=== PATIENT | female | born 1995 | race Caucasian/White ===

== ENCOUNTER 2017-05-09 11:06 | Emergency (ER) | payer SELFPAY ==
[~2017-05-09] VITALS: Ht 157.5 cm; Wt 59.0 kg
[2017-05-09] MEDS ORDERED: SULF-222 (11:50)
[2017-05-09] MEDS ORDERED: KETOROLAC 60 MG/2 ML VIAL IM STA (12:42)
[2017-05-09] MEDS ORDERED: fentaNYL INJECTION 100 MCG/2 ML AMP IM STA (12:42)
[2017-05-09] MEDS ORDERED: BUPIVACAINE 0.5% 30 ML (SENSORCAINE) VIAL INJ ONE (12:45)
[2017-05-09] MEDS ORDERED: LIDOCAINE/EPI 2% 1:100,00 (XYLOCAINE) 20 ML VIAL INJ ONE (12:45)
--- NOTE | 2017-05-09 12:53 | ED General ---
General Chief Complaint: -Female Stated Complaint: NEEDS CYST DRAINED Nursing Triage Note: PT PRESENTS TO ER WITH COMPLAINT OF BARTHOLIN CYST. STATES THAT HER DR IS NOT IN OFFICE AND IS NOT ABLE TO TREAT HER. STATES SHE WAS AT THE [facility] ER 05/06/17 WHERE THEY GAVE HER BACTRIM, BUT DID NOT DRAIN THE CYST. PT STATES CYST IS THE SIZE OF A FIST AND THAT SHE NEEDS IT DRAINED. STATES THIS IS HER 4TH ONE. Nursing Sepsis Screen: No Definite Risk Source of Information: Patient, Family Exam Limitations: No Limitations History of Present Illness Time Seen by Provider: 12:48 Initial Comments 22-year-old female patient presents to the emergency department with complaints of a Bartholin's abscess. Patient states she was seen at [facility] on 06 May and today and was given Bactrim DS. Reports they told her they could not perform the incision and drainage. Patient reports this is the fourth of breath on abscess that she has had. Denies fevers. Timing/Duration: 1 Week Modifying Factors: worse with Other (worse with palpation and movement) Allergies and Home Medications Allergies Coded Allergies: acetaminophen (Verified Allergy, Unknown, 05/09/17) amoxicillin (Verified Allergy, Unknown, 05/09/17) oxycodone (Verified Allergy, Unknown, 05/09/17) Home Medications Tramadol HCl 50 Mg Tablet, 50 MG PO Q6H PRN for PAIN-MODERATE TO SEVERE, #14 Ref 0 Prescribed by: REINALDO CONRAD on 05/09/17 1403 Trimethoprim/Sulfamethoxazole 1 Ea Tablet, (Reported) Constitutional: No chills, No fever, No malaise Respiratory: no symptoms reported Cardiovascular: no symptoms reported Gastrointestinal: No abdominal pain, No constipation, No diarrhea, No nausea, No vomiting Genitourinary: see HPI, No decreased output, No dysuria, No frequency, No hematuria, pain : No Musculoskeletal: no symptoms reported Skin: see HPI Psychiatric/Neurological: No Symptoms Reported All Other Systems Reviewed Negative Unless Noted: Yes (Negative excepted noted.) Past Btellbw-Oksvgx-Idstwm Hx Patient Social History Alcohol Use: Denies Use Recreational Drug Use: Yes Drug of Choice: MARIJUANA Smoking Status: Never a Smoker Recent Foreign Travel: No Contact w/Someone Who Travel: No Recent Infectious Disease Expo: No Recent Hopitalizations: No Physical Abuse: No Sexual Abuse: No Seasonal Allergies Seasonal Allergies: No Surgeries History of Surgeries: Yes (EAR CYST REMOVAL) Surgeries: Gallbladder Respiratory History of Respiratory Disorde: No Cardiovascular History of Cardiac Disorders: No Neurological History of Neurological Disord: No Genitourinary History of Genitourinary Disor: No Gastrointestinal History of Gastrointestinal Di: No Musculoskeletal History of Musculoskeletal Dis: No Endocrine History of Endocrine Disorders: No HEENT History of HEENT Disorders: No Cancer History of Cancer: No Psychosocial History of Psychiatric Problem: No Suicide Risk Score: 0 Blood Transfusions History of Blood Disorders: No Reviewed Nursing Assessment Reviewed/Agree w Nursing PMH: Yes Family Medical History Significant Family History: No Pertinent Family Hx Physical Exam Vital Signs Vital Sign - Last 12Hours 05/09/17 11:42 Temp 98.0 Pulse 90 Resp 20 B/P (MAP) 123/93 (103) Pulse Ox 97 O2 Delivery Room Air Capillary Refill : Less Than 3 Seconds General Appearance: No Apparent Distress, WD/WN Respiratory: Lungs Clear, Normal Breath Sounds, No Accessory Muscle Use, No Respiratory Distress Cardiovascular: Regular Rate, Rhythm, No Murmur Genital/Rectal: Other (erythema, swelling, tenderness left labia consistent with a bartholin abscess left labia) Neurologic/Psychiatric: Alert, Oriented x3, Normal Mood/Affect Skin: Normal Color, Warm/Dry, Other (erythema, swelling, tenderness left labia consistent with a bottle and abscess.) I&D : Site: left labia Blade Size: 11 I & D Procedure: betadine prep, sterile drapes applied, sterile dressing applied Packing/Drain: 1/4 [place] Drain (drain secured with a 0 prolene) Progress 5 ml of a 1:1 mixture of 2% lidocaine with epi and 0.5% marcaine infused into the dermis. Approximately 30 mL of purulent drainage noted. Blood loss minimal. Patient tolerated the procedure well. Progress/Results/Core Measures Suspected Sepsis Recent Fever Within 48 Hours: No Infection Criteria Present: None New/Unexplained Altered Menta: No Sepsis Screen: No Definite Risk Sepsis Diagnosis: SIRS Temperature:98.0 Pulse: 90 Respiratory Rate: 20 Blood Pressure 123 /93 Mean: 103 Results/Orders My Orders Orders - REINALDO CONRAD Bupivacaine 0.5% Injection (Sensorcaine (05/09/17 12:45) Lidocaine/Epi 2% 1:100,000 (Xylocaine/Ep (05/09/17 12:45) Fentanyl Injection (Sublimaze Injection (05/09/17 12:42) Ketorolac Injection (Toradol Injection) (05/09/17 12:42) Wound Culture (05/09/17 12:42) Medications Given in ED Current Medications Medications Dose Ordered Sig/Vicky Route Start Time Stop Time Status Last Admin Dose Admin Bupivacaine HCl 30 ml ONCE ONCE INJ 05/09/17 12:45 05/09/17 12:47 DC 05/09/17 13:18 30 ML Lidocaine/ Epinephrine 20 ml ONCE ONCE INJ 05/09/17 12:45 05/09/17 12:47 DC 05/09/17 13:18 20 ML Vital Signs/I&O Vital Sign - Last 12Hours 05/09/17 11:42 Temp 98.0 Pulse 90 Resp 20 B/P (MAP) 123/93 (103) Pulse Ox 97 O2 Delivery Room Air Capillary Refill : Less Than 3 Seconds Blood Pressure Mean: 103 Departure Communication (Admissions) Progress Notes Patient seen, evaluated, and incision with drainage performed. Plan for discharge to home. Continue Bactrim DS. Patient given a prescription of tramadol for pain. Impression Impression: Primary Impression: Bartholin's gland abscess Disposition: HOME, SELF-CARE Condition: Improved Departure-Patient Inst. Decision time for Depature: 13:13 Referrals: NO,LOCAL PHYSICIAN (PCP) Primary Care Physician JESSICA GREEN DO Patient Instructions: Abscess Incision and Drainage (DC), Bartholin's Gland Cyst Add. Discharge Instructions: All discharge instructions reviewed with patient and/or family. Voiced understanding. Medications as instructed. Ibuprofen 800 mg by mouth every 8 hours as needed for pain. Ice pack or heating pads as needed for pain. Shower with antibacterial soap. Follow-up with Dr. Jessica Green or your primary care provider as an outpatient within the next 5-7 days for recheck and drain removal. Call today for appointment time. Return to the emergency department for worsened pain, fever, swelling, or any other concerns. Scripts Tramadol HCl (Tramadol HCl) 50 Mg Tablet 50 MG PO Q6H Y for PAIN-MODERATE TO SEVERE, #14 TAB 0 Refills Prov: REINALDO CONRAD 05/09/17 Work/School Note: Work Release Form Date Seen in the Emergency Department: May 09, 2017 Return to Work: May 10, 2017 REINALDO CONRAD May 09, 2017 12:52
[2017-05-09] MEDS ORDERED: TRAM50TA2 PO (14:03)
[2017-05-09 14:08] VITALS: BP 120/85
== END 2017-05-09 14:07 | disposition home or self-care (01) ==
LOC: EDUNIT# 11:06 → ER 11:09
DX: N75.1 Abscess of Bartholin's gland (principal); F12.10 Cannabis abuse, uncomplicated
CPT/HCPCS: 87070; 87205; 99284

== ENCOUNTER 2018-06-04 12:51 | Outpatient (CLI) | payer MEDICAID ==
[~2018-06-04] VITALS: Ht 157.5 cm; Wt 89.0 kg
--- NOTE | 2018-06-04 12:37 | NUR ---
JONAS CHRISTIAN presented to unit from Home, accompanied by Mom, with c/o VAGINAL BLEEDING. JONAS CHRISTIAN weighed, gowned, voided, and to bed. EFHM and TOCO applied, VS taken. JONAS CHRISTIAN oriented to bed controls, call light, TV, heat, and A/C controls.
[2018-06-04 12:47] VITALS: BP 128/80
[~2018-06-04 12:51] MED LIST: SULF-222; TRAM50TA2 PO
--- NOTE | 2018-06-04 13:11 | NUR ---
Dr. Berrios notified of patient's arrival, complaints, and exam. New orders received.
[2018-06-04] MEDS ORDERED: PREN-54 PO (13:18)
[2018-06-04] MEDS ORDERED: ONDA4TAB11 PO (13:18)
--- NOTE | 2018-06-04 13:25 | NUR ---
Discharge instructions and medications reviewed with patient both written and verbally. Patient verbalizes understanding and questions answered.
--- NOTE | 2018-06-04 13:26 | NUR ---
Patient discharged from this unit accompanied by her Mother. No signs or symptoms of distress noted.
== END 2018-06-04 13:26 | disposition home or self-care (01) ==
LOC: LDRP 12:51 → WSo 12:51
PROVIDERS: ATTEND Obstetrics & Gynecology
DX: O46.93 Antepartum hemorrhage, unspecified, third trimester (principal); Z3A.39 39 weeks gestation of pregnancy
CPT/HCPCS: 99212

== ENCOUNTER 2018-06-08 03:38 | Inpatient (IN) | payer BC, MEDICAID ==
[2018-06-08] VITALS (39 sets, daily range): BP systolic 98–173; BP diastolic 55–109
[~2018-06-08] VITALS: Ht 157.5 cm; Wt 87.8 kg
[~2018-06-08 03:38] MED LIST changes: +ONDA4TAB11 PO; +PREN-54 PO
--- NOTE | 2018-06-08 05:00 | NUR ---
JONAS CHRISTIAN presented to unit via ambulatory from ED, accompanied by family, with c/o 39WKS 4DAYS @ DATE OF INDUCTION. JONAS CHRISTIAN weighed, gowned, voided, and to bed. EFHM and TOCO applied, VS taken. JONAS CHRISTIAN oriented to bed controls, call light, TV, heat, and A/C controls.
[2018-06-08] MEDS ORDERED: MINERAL OIL CONCENTRATE 99.9% 15 ML UDC TOP PRN (05:15)
[2018-06-08] MEDS ORDERED: OXYTOCIN/NORMAL SALINE 500 ML IV ONE (05:16)
[2018-06-08] MEDS ORDERED: D5 LR IV SOLUTION 1,000 ML IV ONE (05:16)
[2018-06-08] MEDS: D5 LR IV SOLUTION 1,000 ML IV SCH ×2 (05:40→13:10)
[2018-06-08] MEDS: OXYTOCIN/NORMAL SALINE 500 ML IV SCH ×2 (05:45→16:04)
[2018-06-08] MEDS ORDERED: CATHETER FLUSH 10 ML SYR IV SCH ×2 (06:00→22:00)
[2018-06-08 06:44] LABS: BASOPHILS % (AUTO) 0 % (0-10); EOSINOPHILS # (AUTO) 0.1 10^3/uL (0.0-0.3); EOSINOPHILS % (AUTO) 1 % (0-10); HEMATOCRIT 31 % (35-52); HEMOGLOBIN 9.8 G/DL (11.5-16.0); LYMPHOCYTES # (AUTO) 1.5 X 10^3 (1.0-4.0); LYMPHOCYTES % (AUTO) 18 % (12-44); MEAN CORPUSCULAR HEMOGLOBIN 25 PG (25-34); MEAN CORPUSCULAR HGB CONC 31 G/DL (32-36); MEAN CORPUSCULAR VOLUME 80 FL (80-99); MEAN PLATELET VOLUME 9.4 FL (7.4-10.4); MONOCYTES # (AUTO) 0.8 X 10^3 (0.0-1.0); MONOCYTES % (AUTO) 10 % (0-12); NEUTROPHILS % (AUTO) 71 % (42-75); PLATELET COUNT 283 10^3/uL (130-400); RED CELL DISTRIBUTION WIDTH 14.2 % (10.0-14.5); WHITE BLOOD COUNT 8.4 10^3/uL (4.3-11.0)
[2018-06-08 07:01] LABS: AMPHETAMINE SCREEN, URINE NEGATIVE (NEGATIVE); BENZODIAZEPINES SCREEN URINE NEGATIVE (NEGATIVE); COCAINE SCREEN URINE NEGATIVE (NEGATIVE)
[2018-06-08 07:02] LABS: BARBITURATE SCREEN URINE NEGATIVE (NEGATIVE); CANNABINOID SCREEN, URINE NEGATIVE (NEGATIVE); METHADONE STAT NEGATIVE (NEGATIVE); METHAMPHETAMINE SCREEN URINE S NEGATIVE (NEGATIVE); OPIATE SCREEN URINE NEGATIVE (NEGATIVE); OXYCODONE STAT NEGATIVE (NEGATIVE); PROPOXYPHENE STAT NEGATIVE (NEGATIVE); TRICYCLIC ANTIDEPRESSANTS SCRE NEGATIVE (NEGATIVE)
--- NOTE | 2018-06-08 07:13 | History & Physical-OB/GYN ---
History of Present Illness History of Present Illness Reason for visit/HPI Pitocin Induction of Labor Date of Admission Jun 08, 2018 at 04:50 Date Seen by a Provider: Jun 08, 2018 Time Seen by a Provider: 07:00 I consulted on this patient on 06/08/18 07:08 Attending Physician Cam Berrios DO Admitting Physician No,Local Physician Consult Allergies and Home Medications Allergies Coded Allergies: acetaminophen (Verified Allergy, Mild, NAUSEA, 06/08/18) Penicillins (Verified Allergy, Unknown, RASH, 06/08/18) amoxicillin (Verified Allergy, Unknown, 05/09/17) oxycodone (Verified Allergy, Unknown, NAUSEA, 06/08/18) Home Medications Pnv No.118/Iron Fumarate/FA 1 Each Tab.chew, 2 EACH PO DAILY, (Reported) Patient Home Medication List Home Medication List Reviewed: Yes Past Wgguets-Rdrzdu-Fbdaou Hx Patient Social History Marrital Status: single Number of Children: 0 Number of living children: 0 Employed/Student: unemployed Alcohol Use: Denies Use Recreational Drug Use: Yes Drug of Choice: MARIJUANA, Meth Physical Abuse Screen: No Sexual Abuse: No Recent Foreign Travel: No Contact w/other who traveled: No Recent Hopitalizations: No Recent Infectious Disease Expo: No Seasonal Allergies Seasonal Allergies: No Surgeries Yes (EAR CYST REMOVAL) Gallbladder Respiratory Yes Currently Using CPAP: No Currently Using BIPAP: No Cardiovascular No Neurological No Reproductive System Expected Date of Delivery: Jun 11, 2018 Genitourinary No Gastrointestinal No Musculoskeletal Yes Scoliosis Endocrine History of Endocrine Disorders: No HEENT History of HEENT Disorders: No Cancer No Psychosocial History of Psychiatric Problem: No Integumentary History of Skin or Integumenta: No Blood Transfusions History of Blood Disorders: No Family Medical History Significant Family History: No Pertinent Family Hx Review of Systems Constitutional: no symptoms reported EENTM: no symptoms reported Respiratory: no symptoms reported Cardiovascular: no symptoms reported : Yes Expected Date of Delivery: Jun 11, 2018 Control/STD Prophylaxis: None Musculoskeletal: back pain Skin: no symptoms reported Psychiatric/Neurological: No Symptoms Reported Physical Exam Physical Exam Vital Signs Capillary Refill : Labs Laboratory Tests 06/08/18 05:05: Urine Opiates Screen NEGATIVE, Urine Oxycodone Screen NEGATIVE, Urine Methadone Screen NEGATIVE, Urine Propoxyphene Screen NEGATIVE, Urine Barbiturates Screen NEGATIVE, Ur Tricyclic Antidepressants Screen NEGATIVE, Urine Phencyclidine Screen NEGATIVE, Urine Amphetamines Screen NEGATIVE, Urine Methamphetamines Screen NEGATIVE, Urine Benzodiazepines Screen NEGATIVE, Urine Cocaine Screen NEGATIVE, Urine Cannabinoids Screen NEGATIVE 06/08/18 06:35: White Blood Count 8.4, Red Blood Count 3.94L, Hemoglobin 9.8L, Hematocrit 31L, Mean Corpuscular Volume 80, Mean Corpuscular Hemoglobin 25, Mean Corpuscular Hemoglobin Concent 31L, Red Cell Distribution Width 14.2, Platelet Count 283, Mean Platelet Volume 9.4, Neutrophils (%) (Auto) 71, Lymphocytes (%) (Auto) 18, Monocytes (%) (Auto) 10, Eosinophils (%) (Auto) 1, Basophils (%) (Auto) 0, Neutrophils # (Auto) 6.0, Lymphocytes # (Auto) 1.5, Monocytes # (Auto) 0.8, Eosinophils # (Auto) 0.1, Basophils # (Auto) 0.0 General Appearance: No Apparent Distress, WD/WN Respiratory: Chest Non Tender, Lungs Clear Cardiovascular: Regular Rate, Rhythm, No Murmur Abdominal: normal bowel sounds, non tender, soft, distended (Gravid) Gynecology/General: No urethral discharge, No pelvic organ prolapse Labia: WNL Vagina: WNL Cervix: WNL, Other (Cervix 1 cm/30%/-3 Vertex/Intact) Cervix OS: open (Cervix 1 cm/30%/-3 Vertex/Intact) Uterus: Enlarged (37 cm (uterine fundus)) Pelvic Exam: normal external exam Extremity: Normal Range of Motion, Non Tender Assessment/Plan Assessment and Plan Assessment: IUP at 39 4/7 weeks 2. Primigravida Admission Diagnosis IUP at 39 4/7 weeks 2. Primigravida Admission Status: Inpatient Order (span 2 midnights) Reason for Inpatient Admission: with expectant delivery Diagnosis/Problems Diagnosis/Problems (1) 39 weeks gestation of (2) Elective induction of labor planned Clinical Quality Measures DVT/VTE Risk/Contraindication: Risk Factor Score Per Nursin RFS Level Per Nursing on Admit: 1=Low/No VTE PPX CAM BERRIOS DO Jun 08, 2018 07:13
[2018-06-08] MEDS ORDERED: BUTORPHANOL INJ 2 MG/ML (STADOL) VIAL IV PRN (07:15)
[2018-06-08] MEDS ORDERED: ONDANSETRON 4 MG/2 ML (SDV) Z0FRAN IVP PRN (07:15)
--- NOTE | 2018-06-08 08:18 | Labor Progress Note ---
Labor Progress Note Labor Progress Note Date Seen by Provider: Jun 08, 2018 Time Seen by Provider: 08:00 Subjective: Complains of regular contractions--getting stronger Objective: (Can we insert 24 hour vitals here?) Cervical exam: Cervix 1 cm/30%/-3 Vertex/AROM Consistency: Medium Position: Posterior Presentation: Vertex heart tones: 150 beats per minute, good variability, yes reactive Tocometer: ctx every 2 minutes Assessment/Plan: Reinaldo Rose is a (23 /Para / ,Gestational Age (wks)39 . CEFM/TOCO Continue pitocin/ Anesthesia: No Anticipate vaginal delivery. Vitals - Labs Vital Signs - I&O Vital Signs Date Time Temp Pulse Resp B/P (MAP) Pulse Ox O2 Delivery O2 Flow Rate FiO2 06/08/18 06:50 105 16 121/77 (92) Room Air 06/08/18 06:20 88 16 109/58 (75) Room Air 06/08/18 06:05 84 16 104/63 (77) Room Air 06/08/18 05:45 92 16 116/74 (88) Room Air 06/08/18 05:26 97.7 96 16 116/69 (85) Room Air Labs Laboratory Tests 06/08/18 05:05: Urine Opiates Screen NEGATIVE, Urine Oxycodone Screen NEGATIVE, Urine Methadone Screen NEGATIVE, Urine Propoxyphene Screen NEGATIVE, Urine Barbiturates Screen NEGATIVE, Ur Tricyclic Antidepressants Screen NEGATIVE, Urine Phencyclidine Screen NEGATIVE, Urine Amphetamines Screen NEGATIVE, Urine Methamphetamines Screen NEGATIVE, Urine Benzodiazepines Screen NEGATIVE, Urine Cocaine Screen NEGATIVE, Urine Cannabinoids Screen NEGATIVE 06/08/18 06:35: White Blood Count 8.4, Red Blood Count 3.94L, Hemoglobin 9.8L, Hematocrit 31L, Mean Corpuscular Volume 80, Mean Corpuscular Hemoglobin 25, Mean Corpuscular Hemoglobin Concent 31L, Red Cell Distribution Width 14.2, Platelet Count 283, Mean Platelet Volume 9.4, Neutrophils (%) (Auto) 71, Lymphocytes (%) (Auto) 18, Monocytes (%) (Auto) 10, Eosinophils (%) (Auto) 1, Basophils (%) (Auto) 0, Neutrophils # (Auto) 6.0, Lymphocytes # (Auto) 1.5, Monocytes # (Auto) 0.8, Eosinophils # (Auto) 0.1, Basophils # (Auto) 0.0 MARY GLASER DO Jun 08, 2018 08:18
[2018-06-08] MEDS ORDERED: OXYC1TAB87 PO (08:27)
[2018-06-08] MEDS ORDERED: LIDOCAINE 1% INJ 20 ML 20 ML VIAL ONE ×2 (15:13→15:36)
--- NOTE | 2018-06-08 16:01 | OB Labor & Delivery Record ---
Vag Delivery Note Vag Delivery Note Date of Delivery: 06/08/18 Preoperative Diagnosis: Reinaldo Rose is a (23 /Para / ,Gestational Age ( wks)39 4/7 weeks Postoperative Diagnosis: Same Surgeon: MARY GLASER Food Service Utility Worker: None Anesthesia: Local Delivery Type: Normal Spontaneous Vaginal Delivery with Midline Episiotomy and Standard Repair Findings: Male , vertex, nuchal cord x 1 that was manually reduced Viable Male , apgars 7, 8, weight 7 lbs 12 oz Lacerations: Intact placenta with 3 vessel cord. No nuchal cord, body cord or shoulder dystocia Cytotec 800 mcg placed for hemorrhage prophylaxis Estimated Blood Loss: 300 ml Complications: None Condition: Stable Description of Procedure: The patient is a [id number] presented for induction of labor. She was admitted and informed consent was obtained. Her labor course was unremarkable. She progressed to complete dilatation and began to push. She was then set up for delivery. The 's head was delivered atraumatically in the ELLIS position. Nuchal cord x 1 was manually reduced. The shoulders and remainder of the infant's body were then delivered without difficulty. Upon delivery, the head was held below the level of the perineum and the mouth and nares were bulb suctioned. The cord was doubly clamped and cut and the was handed off to the pediatric staff. An intact placenta with 3-vessel cord delivered via Erin and there was found to be minimal bleeding.~ Vigorous fundal massage was performed and the fundus was found to be firm. IV oxytocin was given. Examination of the vagina and perineum revealed a midline epsiotomy that was repaired in the usual fashion with 2-0 Vicryl and 3- 0 vicryl sutures. Following the repair, sponge, instrument and needle counts were correct. Mom and baby were both in stable condition in the labor suite. Vitals - Labs Vital Signs - I&O Vital Signs Date Time Temp Pulse Resp B/P (MAP) Pulse Ox O2 Delivery O2 Flow Rate FiO2 06/08/18 11:05 98.2 90 18 123/82 (96) Room Air 06/08/18 10:50 100 18 120/78 (92) Room Air 06/08/18 10:35 85 16 125/75 (92) Room Air 06/08/18 10:20 83 16 123/78 (93) Room Air 06/08/18 10:05 86 16 112/75 (87) Room Air 06/08/18 09:50 99 16 114/78 (90) Room Air 06/08/18 09:35 88 16 115/75 (88) Room Air 06/08/18 09:20 98.1 93 18 115/76 (89) Room Air 06/08/18 09:05 81 16 101/57 (72) Room Air 06/08/18 08:50 98.0 92 18 110/71 (84) Room Air 06/08/18 08:35 95 18 115/75 (88) Room Air 06/08/18 08:20 100 18 98/55 (69) Room Air 06/08/18 08:15 98.2 06/08/18 08:05 108 18 114/66 (82) Room Air 06/08/18 07:45 86 18 117/70 (86) Room Air 06/08/18 07:35 95 18 122/72 (89) Room Air 06/08/18 07:20 98.1 91 16 127/58 (81) Room Air 06/08/18 06:50 105 16 121/77 (92) Room Air 06/08/18 06:20 88 16 109/58 (75) Room Air 06/08/18 06:05 84 16 104/63 (77) Room Air 06/08/18 05:45 92 16 116/74 (88) Room Air 06/08/18 05:26 97.7 96 16 116/69 (85) Room Air Labs Laboratory Tests 06/08/18 05:05: Urine Opiates Screen NEGATIVE, Urine Oxycodone Screen NEGATIVE, Urine Methadone Screen NEGATIVE, Urine Propoxyphene Screen NEGATIVE, Urine Barbiturates Screen NEGATIVE, Ur Tricyclic Antidepressants Screen NEGATIVE, Urine Phencyclidine Screen NEGATIVE, Urine Amphetamines Screen NEGATIVE, Urine Methamphetamines Screen NEGATIVE, Urine Benzodiazepines Screen NEGATIVE, Urine Cocaine Screen NEGATIVE, Urine Cannabinoids Screen NEGATIVE 06/08/18 06:35: White Blood Count 8.4, Red Blood Count 3.94L, Hemoglobin 9.8L, Hematocrit 31L, Mean Corpuscular Volume 80, Mean Corpuscular Hemoglobin 25, Mean Corpuscular Hemoglobin Concent 31L, Red Cell Distribution Width 14.2, Platelet Count 283, Mean Platelet Volume 9.4, Neutrophils (%) (Auto) 71, Lymphocytes (%) (Auto) 18, Monocytes (%) (Auto) 10, Eosinophils (%) (Auto) 1, Basophils (%) (Auto) 0, Neutrophils # (Auto) 6.0, Lymphocytes # (Auto) 1.5, Monocytes # (Auto) 0.8, Eosinophils # (Auto) 0.1, Basophils # (Auto) 0.0 MARY GLASER DO Jun 08, 2018 16:01
[2018-06-08] MEDS ORDERED: OXYTOCIN/NORMAL SALINE 500 ML IV SCH (16:20)
[2018-06-08] MEDS ORDERED: TETANUS,DIPTH,PERTUSS P/F (BOOSTRIX) 0.5 ML VIAL IM ONE (16:30)
[2018-06-08] MEDS ORDERED: MEASLES,MUMPS,RUBELLA 1 EA INJ SQ ONE (16:30)
[2018-06-08] MEDS ORDERED: oxyCODONE/APAP 5/325MG (PERCOCET 5) TABLET PO PRN (16:30)
[2018-06-08] MEDS ORDERED: WITCH HAZEL(TUCKS) 40 EA JAR TOP PRN (16:30)
[2018-06-08] MEDS ORDERED: BENZOCAINE/MENTHOL (DERMOPLAST) 56 ML CAN TP PRN (16:30)
[2018-06-08] MEDS ORDERED: IBUPROFEN 800 MG (MOTRIN) TAB PO ONE ×2 (17:19→22:55)
[2018-06-08] MEDS: IBUPROFEN 800 MG (MOTRIN) TAB PO SCH ×2 (17:23→23:16)
--- NOTE | 2018-06-08 17:50 | NUR ---
Pt. assisted to bathroom to attempt void, unsuccessful. Pt. assisted back to bed for remainder of recover.
--- NOTE | 2018-06-08 18:00 | NUR ---
Refer to labor flowsheet for detailed assessment of labor progression and interventions, delivery details, and recovery.
[2018-06-08] MEDS ORDERED: LIDOCAINE 1% INJ 20 ML 20 ML VIAL INJ ONE ×2 (18:30→18:45)
--- NOTE | 2018-06-08 18:46 | NUR ---
FFU/0, LT RUBRA VAG FLOW NOTED, NO CLOTS. PT TRANSFERRED FROM -319 TO -309 VIA AMBULATORY IN STABLE CONDITION ACC BY S/O, FAMILY, THIS RN AND . PT TO THE BATHROOM.
--- NOTE | 2018-06-08 20:13 | NUR ---
pt resting in bed. s/o at bedside. assessment completed. pt denies any needs at this time. will continue to monitor.
[2018-06-08] MEDS: DOCUSATE SODIUM 100 MG (COLACE) CAP PO SCH (20:15)
[2018-06-09 02:30] VITALS: BP 98/62
[2018-06-09] MEDS ORDERED: IBUPROFEN 800 MG (MOTRIN) TAB PO ONE ×2 (04:44→10:21)
[2018-06-09] MEDS: IBUPROFEN 800 MG (MOTRIN) TAB PO SCH ×3 (04:59→17:30)
[2018-06-09 06:03] VITALS: BP 97/62
[2018-06-09 06:22] LABS: BASOPHILS % (AUTO) 0 % (0-10); EOSINOPHILS # (AUTO) 0.1 10^3/uL (0.0-0.3); EOSINOPHILS % (AUTO) 0 % (0-10); HEMATOCRIT 26 % (35-52); HEMOGLOBIN 8.1 G/DL (11.5-16.0); LYMPHOCYTES # (AUTO) 1.6 X 10^3 (1.0-4.0); LYMPHOCYTES % (AUTO) 12 % (12-44); MEAN CORPUSCULAR HEMOGLOBIN 25 PG (25-34); MEAN CORPUSCULAR HGB CONC 31 G/DL (32-36); MEAN CORPUSCULAR VOLUME 80 FL (80-99); MONOCYTES % (AUTO) 7 % (0-12); NEUTROPHILS % (AUTO) 80 % (42-75); PLATELET COUNT 258 10^3/uL (130-400); RED CELL DISTRIBUTION WIDTH 14.2 % (10.0-14.5); WHITE BLOOD COUNT 13.7 10^3/uL (4.3-11.0)
[2018-06-09] MEDS ORDERED: PRENATAL VITAMIN 1 EA TAB PO SCH (07:00)
--- NOTE | 2018-06-09 09:49 | NUR ---
Dr. Berrios to room to see pt.
[2018-06-09] MEDS ORDERED: DOCU100C37 PO (10:05)
[2018-06-09] MEDS ORDERED: OXYC1TAB87 PO (10:05)
[2018-06-09] MEDS ORDERED: IBUP-1780 PO (10:05)
--- NOTE | 2018-06-09 10:13 | Discharge Inst-Women's Service ---
Discharge Inst-Women's Serv Depart Medication/Instructions New, Converted or Re-Newed RX: RX Given to Pt/Family Instructions Pelvic rest x 6 weeks No heavy lifting, less than 20 pounds No strenuous activity Tub soaks Final Diagnosis Intrauterine at 39 4/7 Normal Spontaneous Vaginal Delivery with Midline Episiotomy Consults/Follow Up Additional Follow Up: No Activity Activity: Activity as Tolerated Driving Instructions: No Driving for 1 Week NO SMOKING: NO SMOKING Nothing Inside Vagina: No Douching, No [place], No Tampons Diet Discharge Diet: No Restrictions Symptoms to Report to DrWest: Bleeding Excessive, Pain Increased, Fever Over 101 Degrees F, Vaginal Bleeding Increase, Vaginal Discharge Foul Skin/Wound Care Infection Signs and Symptoms: Foul Odor of Wound, Increased Drainage, Temperature Above 101 F Operative Area Clean and Dry: Keep Incision Clean/Dry Bathing Instructions: MARY Marc DO Jun 09, 2018 10:13
[2018-06-09 10:27] VITALS: BP 115/76
[2018-06-09] MEDS: DOCUSATE SODIUM 100 MG (COLACE) CAP PO SCH (10:29)
[2018-06-09 14:30] VITALS: BP 125/85
--- NOTE | 2018-06-09 14:30 | NUR ---
Discussed options of boardering vs staying another night as a pt. pt opting to boarder. prescriptions given to pt and explained at this time. will explain d/c instructions following next motrin
--- NOTE | 2018-06-09 17:35 | NUR ---
Discharge instructions explained to pt with copy provided to pt. Questions answered to pt satisfaction. Pt verbalizes understanding of teaching and signs to verify, denies further questions or concerns at this time. Pt to stay in room 309 as boarder parent. Room in info provided. No questions voice.
== END 2018-06-09 17:35 | disposition home or self-care (01) | DRG 807 ==
LOC: LDRP 04:50
PROVIDERS: ADMIT Obstetrics & Gynecology; ATTEND Obstetrics & Gynecology
PROC: 10E0XZZ Delivery of Products of Conception, External Approach (ICD-10-PCS; principal; 2018-06-08)
PROC: 0W8NXZZ Division of Female Perineum, External Approach (ICD-10-PCS; 2018-06-08)
PROC: 3E033VJ Introduction of Other Hormone into Peripheral Vein, Percutaneous Approach (ICD-10-PCS; 2018-06-08)
DX: O69.81X0 Labor and delivery complicated by cord around neck, without compression, not applicable or unspecified (principal); Z3A.39 39 weeks gestation of pregnancy; Z37.0 Single live birth; Z88.0 Allergy status to penicillin; Z88.1 Allergy status to other antibiotic agents; Z88.5 Allergy status to narcotic agent; Z88.6 Allergy status to analgesic agent
CPT/HCPCS: 36415; 80306; 85025; 86850; 86900; 86901

== ENCOUNTER 2018-08-21 17:15 | Emergency (ER) | payer BC, MEDICAID ==
[~2018-08-21] VITALS: Ht 157.5 cm; Wt 82.6 kg
[~2018-08-21 17:15] MED LIST changes: +DOCU100C37 PO; +IBUP-1780 PO; +OXYC1TAB87 PO
--- NOTE | 2018-08-21 17:35 | ED Psychosocial ---
General Stated Complaint: POSSIBLE PPD Source: patient Exam Limitations: no limitations (NASRIN ROMERO) History of Present Illness Date Seen by Provider: Aug 21, 2018 Time Seen by Provider: 17:20 Initial Comments The patient presents to ER by private conveyance with chief complaint that she has a history of low mood, low energy, low appetite and suicidal ideation. She admitting appointment with her primary care provider Lety Enciso today and was seen in the clinic and after that appointment she was instructed to come across the way to the ER for further evaluation of her suicidal ideation. She's had passive suicidal ideation in the past but usually with some counseling she's been able to handle it. She does not take any medications for this. She is a with a healthy term baby delivered by spontaneous vaginal delivery without significant issue during , delivery or the term. The boy is at a baby sitters right now. She denies having any thoughts of harming her son. She has cried multiple times throughout the day for the past few weeks. She says couple weeks however her poor appetite and now some nausea with eating anything more than a butter and crackers as well as suicidal ideation without a plan has manifested itself even worse. She thinks it is probably related to depression. Her child's date was June 08, 2018. She has a history when she was in 6-7 grade of doing some minor cutting on her arms but nothing since then. She has no history of suicide attempts and she has never spent any time in a inpatient psychiatric hospital. She has no significant medical history nor psychiatric diagnoses and is not followed by a psychiatrist , psychologist or counselor. She does not take any medication. She has a stated allergy to penicillin which causes a rash. She is not presently having any nausea or pain shortness of breath or other symptoms. She only rarely drinks alcohol 3 or 4 times a year. Her last use of marijuana was about 5 days ago and she says she occasionally partakes. She has a distant history of using meth with her last use being about a year ago just prior to becoming . She uses about 7-10 cigarettes per day. (NASRIN ROMERO) Allergies and Home Medications Allergies Coded Allergies: acetaminophen (Verified Allergy, Mild, NAUSEA, 06/08/18) Penicillins (Verified Allergy, Unknown, RASH, 06/08/18) amoxicillin (Verified Allergy, Unknown, 05/09/17) oxycodone (Verified Allergy, Unknown, NAUSEA, 06/08/18) Home Medications Docusate Sodium 100 Mg Capsule, 100 MG PO BID Prescribed by: MARY GLASER on 06/09/18 1005 Ibuprofen 800 Mg Tablet, 800 MG PO q8 PRN for BACK PAIN Prescribed by: MARY GLASER on 06/09/18 1005 Oxycodone HCl/Acetaminophen 1 Each Tablet, 1 EACH PO Q6H PRN for PAIN-MODERATE Prescribed by: MARY GLASER on 06/08/18 0827 Oxycodone HCl/Acetaminophen 1 Each Tablet, 1 TAB PO Q6H PRN for PAIN-MODERATE Prescribed by: MARY GLASER on 06/09/18 1005 Pnv No.118/Iron Fumarate/FA 1 Each Tab.chew, 2 EACH PO DAILY, (Reported) Patient Home Medication List Home Medication List Reviewed: Yes (NASRIN ROMERO) Review of Systems Constitutional: No chills, No fever, No malaise EENTM: No ear pain, No eye pain Respiratory: No cough, No short of breath Cardiovascular: No chest pain, No edema Gastrointestinal: No abdominal pain, No constipation, No diarrhea Genitourinary: No discharge, No dysuria : No Control/STD Prophylaxis: None Musculoskeletal: No back pain, No joint pain Skin: No pruritus, No rash Psychiatric/Neurological: Anxiety, Depressed; Denies Headache, Denies Numbness , Denies Paresthesia (NASRIN ROMERO) Past Lrbhrdr-Xoymix-Ykigvt Hx Patient Social History Alcohol Use: Rarely Uses Alcohol Beverage of Choice: Beer Recreational Drug Use: Yes Drug of Choice: MARIJUANA, Meth Smoking Status: Current Everyday Smoker Type Used: Cigarettes (0.5 ppd) Recent Foreign Travel: No Contact w/Someone Who Travel: No Recent Hopitalizations: No (NASRIN ROMERO) Seasonal Allergies Seasonal Allergies: No (NASRIN ROMERO) Past Medical History Surgeries: Yes (EAR CYST REMOVAL) Gallbladder Respiratory: Yes Asthma Currently Using CPAP: No Currently Using BIPAP: No Cardiac: No Neurological: No Genitourinary: No Gastrointestinal: No Musculoskeletal: Yes Scoliosis Endocrine: No HEENT: No Cancer: No Psychosocial: No Integumentary: No Blood Disorders: No (NASRIN ROMERO) Family Medical History Blood clots 19 MOTHER Scoliosis G8 BROTHER No Pertinent Family Hx (NASRIN ROMERO) Physical Exam Vital Signs - First Documented 08/21/18 17:32 Temp 98.3 Pulse 82 Resp 16 B/P (MAP) 103/84 (90) Pulse Ox 99 O2 Delivery Room Air (MARY CERDA DO) Capillary Refill : (NASRIN ROMERO) Height, Weight, BMI Height: 5'2.00" Weight: 193lbs. 8.0oz. 87.911326ft; 35.4 BMI Method:Stated General Appearance: WD/WN, no apparent distress HEENT: PERRL/EOMI, pharynx normal Neck: full range of motion, normal inspection Respiratory: lungs clear, normal breath sounds, no respiratory distress, no accessory muscle use Cardiovascular: normal peripheral pulses, regular rate, rhythm, no edema Peripheral Pulses: 2+ Dorsalis Pedis (R), 2+ Left Dors-Pedis (L) Neurologic/Psychiatric: alert, oriented x 3, depressed affect, other (endorses suicidal ideation without plan or active attempt.) Appearance/Memory: appropriate appearance, appropriate insight Behavior/Eye Contact: cooperative, good eye contact, normal speech Thoughts/Hallucinations: normal thought pattern, no apparent hallucination Skin: normal color, warm/dry (NASRIN ROMERO) Progress/Results/Core Measures Results/Orders Lab Results Laboratory Tests Test 08/21/18 17:15 08/21/18 17:38 Range/Units Urine Color YELLOW Urine Clarity SL CLOUDY Urine pH 8.0 5-9 Urine Specific [place] 1.010 L 1.016-1.022 Urine Protein NEGATIVE NEGATIVE Urine Glucose (UA) NEGATIVE NEGATIVE Urine Ketones NEGATIVE NEGATIVE Urine Nitrite NEGATIVE NEGATIVE Urine Bilirubin NEGATIVE NEGATIVE Urine Urobilinogen 0.2 NORMAL MG/DL Urine Leukocyte Esterase 3+ H NEGATIVE Urine RBC (Auto) NEGATIVE NEGATIVE Urine RBC NONE /HPF Urine WBC 10-25 H /HPF Urine Squamous Epithelial Cells 25-50 H /HPF Urine Crystals NONE /LPF Urine Bacteria FEW H /HPF Urine Casts NONE /LPF Urine Mucus NEGATIVE /LPF Urine Culture Indicated YES Urine Test NEGATIVE NEGATIVE Urine Opiates Screen NEGATIVE NEGATIVE Urine Oxycodone Screen NEGATIVE NEGATIVE Urine Methadone Screen NEGATIVE NEGATIVE Urine Propoxyphene Screen NEGATIVE NEGATIVE Urine Barbiturates Screen NEGATIVE NEGATIVE Ur Tricyclic Antidepressants Screen NEGATIVE NEGATIVE Urine Phencyclidine Screen NEGATIVE NEGATIVE Urine Amphetamines Screen NEGATIVE NEGATIVE Urine Methamphetamines Screen NEGATIVE NEGATIVE Urine Benzodiazepines Screen NEGATIVE NEGATIVE Urine Cocaine Screen NEGATIVE NEGATIVE Urine Cannabinoids Screen POSITIVE H NEGATIVE White Blood Count 6.8 4.3-11.0 10^3/uL Red Blood Count 4.83 4.35-5.85 10^6/uL Hemoglobin 12.0 11.5-16.0 G/DL Hematocrit 39 35-52 % Mean Corpuscular Volume 81 80-99 FL Mean Corpuscular Hemoglobin 25 25-34 PG Mean Corpuscular Hemoglobin Concent 31 L 32-36 G/DL Red Cell Distribution Width 16.0 H 10.0-14.5 % Platelet Count 311 130-400 10^3/uL Mean Platelet Volume 9.5 7.4-10.4 FL Neutrophils (%) (Auto) 59 42-75 % Lymphocytes (%) (Auto) 32 12-44 % Monocytes (%) (Auto) 7 0-12 % Eosinophils (%) (Auto) 1 0-10 % Basophils (%) (Auto) 1 0-10 % Neutrophils # (Auto) 4.0 1.8-7.8 X 10^3 Lymphocytes # (Auto) 2.2 1.0-4.0 X 10^3 Monocytes # (Auto) 0.5 0.0-1.0 X 10^3 Eosinophils # (Auto) 0.1 0.0-0.3 10^3/uL Basophils # (Auto) 0.0 0.0-0.1 10^3/uL Sodium Level 140 135-145 MMOL/L Potassium Level 3.7 3.6-5.0 MMOL/L Chloride Level 103 98-107 MMOL/L Carbon Dioxide Level 25 21-32 MMOL/L Anion Gap 12 5-14 MMOL/L Blood Urea Nitrogen 6 L 7-18 MG/DL Creatinine 0.64 0.60-1.30 MG/DL Estimat Glomerular Filtration Rate > 60 BUN/Creatinine Ratio 9 Glucose Level 89 70-105 MG/DL Calcium Level 9.6 8.5-10.1 MG/DL Corrected Calcium 8.5-10.1 MG/DL Total Bilirubin 0.5 0.1-1.0 MG/DL Aspartate Amino Transf (AST/SGOT) 28 5-34 U/L Alanine Aminotransferase (ALT/SGPT) 35 0-55 U/L Alkaline Phosphatase 95 40-136 U/L Total Protein 7.8 6.4-8.2 GM/DL Albumin 4.8 H 3.2-4.5 GM/DL Salicylates Level 0.4 L 5.0-20.0 MG/DL Acetaminophen Level < 10 L 10-30 UG/ML Serum Alcohol < 10 <10 MG/DL (MARY CERDA DO) Vital Signs/I&O 08/21/18 17:32 Temp 98.3 Pulse 82 Resp 16 B/P (MAP) 103/84 (90) Pulse Ox 99 O2 Delivery Room Air (MARY CERDA DO) Progress Progress Note : Time: 17:36 Progress Note We will get the [facility] screener to see the patient. Routine psychiatric labs and EKG. Labor and delivery record was reviewed and demonstrate a UDS and unremarkable spontaneous vaginal delivery of a healthy term infant. History of a Bartholin's cyst drainage 2016. History of nonspecific ear cyst from childhood. Cholesteatoma? 174: Urinalysis likely represents contamination. (NASRIN ROMERO) Progress Note : Progress Note William Cameron I took over care at 1800. Screener evaluated patient and felt patient was not a danger to herself as she has resources for help and is learning new coping mechanisms. I evaluated patient as well and am not concerned she is an immediate threat to her own life. She is to follow up with primary care provider tomorrow and was told to return to the emergency department any time with any concerns. Patient aware and agreeable to plan for discharge and verbalized understanding of the need for follow-up primary care provider tomorrow to come back with any concerns. (MARY CERDA DO) Initial ECG Impression Date: Aug 21, 2018 Initial ECG Impression Time: 17:28 Initial ECG Rate: 70 Initial ECG Rhythm: Normal Sinus Initial ECG Intervals: Normal Initial ECG Impression: Normal Initial ECG Comparisson: No Previous ECG Available Comment No dysrhythmia or ST elevation or depression. Normal sinus rhythm. (NASRIN ROMERO) Transfer of Care Time: 18:00 Care transferred to: Dr Cerda (NASRIN ROMERO) Departure Impression Primary Impression: Passive suicidal ideations Additional Impression: depression Disposition: 01 HOME, SELF-CARE Condition: Stable Departure-Patient Inst. Decision time for Depature: 19:11 (MARY CERDA DO) Referrals: NO,LOCAL PHYSICIAN (PCP/Family) Primary Care Physician Patient Instructions: Depression, Suicide Prevention NASRIN ROMERO Aug 21, 2018 17:35 MARY CERDA DO Aug 21, 2018 19:14
[2018-08-21 17:41] LABS: COLOR,URINE YELLOW
[2018-08-21 17:42] LABS: BACTERIA,URINE FEW /HPF; BILIRUBIN,URINE NEGATIVE (NEGATIVE); CLARITY,URINE SL CLOUDY; GLUCOSE, URINE (UA) NEGATIVE (NEGATIVE); KETONES,URINE NEGATIVE (NEGATIVE); LEUKOCYTE ESTERASE ,URINE 3+ (NEGATIVE); NITRITE,URINE NEGATIVE (NEGATIVE); PROTEIN,URINE NEGATIVE (NEGATIVE); SQUAMOUS EPITHELIAL CELL,UR 25-50 /HPF; UROBILINOGEN,URINE 0.2 MG/DL (NORMAL)
[2018-08-21 17:45] LABS: AMPHETAMINE SCREEN, URINE NEGATIVE (NEGATIVE); BARBITURATE SCREEN URINE NEGATIVE (NEGATIVE); BENZODIAZEPINES SCREEN URINE NEGATIVE (NEGATIVE); CANNABINOID SCREEN, URINE POSITIVE (NEGATIVE); COCAINE SCREEN URINE NEGATIVE (NEGATIVE); HCG,QUALITATIVE URINE NEGATIVE (NEGATIVE); METHADONE STAT NEGATIVE (NEGATIVE); METHAMPHETAMINE SCREEN URINE S NEGATIVE (NEGATIVE); OPIATE SCREEN URINE NEGATIVE (NEGATIVE); OXYCODONE STAT NEGATIVE (NEGATIVE); PROPOXYPHENE STAT NEGATIVE (NEGATIVE); TRICYCLIC ANTIDEPRESSANTS SCRE NEGATIVE (NEGATIVE)
[2018-08-21 17:46] LABS: BASOPHILS % (AUTO) 1 % (0-10); EOSINOPHILS # (AUTO) 0.1 10^3/uL (0.0-0.3); EOSINOPHILS % (AUTO) 1 % (0-10); HEMATOCRIT 39 % (35-52); LYMPHOCYTES # (AUTO) 2.2 X 10^3 (1.0-4.0); LYMPHOCYTES % (AUTO) 32 % (12-44); MEAN CORPUSCULAR HEMOGLOBIN 25 PG (25-34); MEAN CORPUSCULAR HGB CONC 31 G/DL (32-36); MEAN CORPUSCULAR VOLUME 81 FL (80-99); MEAN PLATELET VOLUME 9.5 FL (7.4-10.4); MONOCYTES # (AUTO) 0.5 X 10^3 (0.0-1.0); MONOCYTES % (AUTO) 7 % (0-12); NEUTROPHILS % (AUTO) 59 % (42-75); PLATELET COUNT 311 10^3/uL (130-400); WHITE BLOOD COUNT 6.8 10^3/uL (4.3-11.0)
[2018-08-21 18:10] LABS: POTASSIUM 3.7 MMOL/L (3.6-5.0); SODIUM 140 MMOL/L (135-145)
[2018-08-21 18:11] LABS: ALKALINE PHOSPHATASE 95 U/L (40-136); BILIRUBIN,TOTAL 0.5 MG/DL (0.1-1.0); BUN/CREATININE RATIO 9; CALCIUM 9.6 MG/DL (8.5-10.1); CARBON DIOXIDE 25 MMOL/L (21-32); CHLORIDE 103 MMOL/L (98-107); CREATININE SERUM 0.64 MG/DL (0.60-1.30); GFR ESTIMATED > 60; GLUCOSE 89 MG/DL (70-105)
[2018-08-21 18:12] LABS: ACETAMINOPHEN < 10 UG/ML (10-30); ALANINE AMINOTRANSFERASE 35 U/L (0-55); ALBUMIN 4.8 GM/DL (3.2-4.5); SALICYLATE 0.4 MG/DL (5.0-20.0); TOTAL PROTEIN 7.8 GM/DL (6.4-8.2)
--- NOTE | 2018-08-21 18:33 | NUR ---
NARAYAN after hours number called at this time, spoke with Nilda, she states there is one screen ahead of patient. Tracking number [id number] given.
--- NOTE | 2018-08-21 18:49 | NUR ---
Patient speaking with Krystle Gabriel, at this time.
--- NOTE | 2018-08-21 19:00 | NUR ---
assumed care of this patient at this time. Patient is currently meeting with [facility] Screener via Computer. Visual monitoring maintained.
--- NOTE | 2018-08-21 19:09 | NUR ---
Screening complete, Spoke with Debra barton for [facility] and she informs this RN patient is clear to go home she has agreed to: 1. follow up with her primary care provider for medication. 2. screener discussed coping skills with patient along with need to find time for herself. 3. screener states patiet has good support system at home. 4. screener states she will send patient safety agreement for her to sign and have a copy. Spoke with patient she states she feels comfortable with the plan. Dr Thomas notified
[2018-08-21 20:25] VITALS: BP 103/84
== END 2018-08-21 20:25 | disposition home or self-care (01) ==
LOC: EDUNIT# 17:15 → ER FS 17:17
DX: O99.345 Other mental disorders complicating the puerperium (principal); F32.9 Major depressive disorder, single episode, unspecified; R45.851 Suicidal ideations; F41.9 Anxiety disorder, unspecified; O90.89 Other complications of the puerperium, not elsewhere classified; J45.909 Unspecified asthma, uncomplicated; O99.335 Smoking (tobacco) complicating the puerperium; F17.210 Nicotine dependence, cigarettes, uncomplicated; O99.325 Drug use complicating the puerperium; F12.10 Cannabis abuse, uncomplicated
CPT/HCPCS: 36415; 80053; 80306; 80320; 80329; 81000; 84703; 85025; 87088; 93005

== ENCOUNTER 2019-02-23 11:22 | Emergency (ER) | payer SELFPAY ==
[~2019-02-23] VITALS: Ht 157.4 cm; Wt 64.1 kg
[2019-02-23] MEDS ORDERED: IOHEXOL 350 MG/ML 100 ML (OMNIPAQUE 350) VIAL IV ONE (11:45)
[2019-02-23] MEDS ORDERED: DEXAMETHASONE 10 MG/ML (DECADRON) 1 ML VIAL IV ONE (11:45)
[2019-02-23] MEDS ORDERED: HOLD METFORMIN - RECEIVED CONTRAST 20 ML VIAL IV SCH (11:45)
[2019-02-23] MEDS ORDERED: CATHETER FLUSH 10 ML SYR IV PRN (11:45)
[2019-02-23] MEDS ORDERED: NS 100 ML (IVPB) BAG IV ONE (11:45)
[2019-02-23] MEDS ORDERED: KETOROLAC 30 MG/ML VIAL IVP ONE (11:45)
--- NOTE | 2019-02-23 11:46 | ED EENT ---
History of Present Illness General Chief Complaint: Oral/Throat Problems Stated Complaint: SORE THROAT History of Present Illness Date Seen by Provider: Feb 23, 2019 Time Seen by Provider: 11:24 Initial Comments The patient is a 23-year-old female who is otherwise healthy. She presents with concern for 4 days of progressive right-sided posterior pharyngeal / throat swelling and discomfort. Patient was seen in the urgent care 2 days ago at which time strep swab was negative and the patient was placed on cefdinir and given a steroid shot as empiric treatment for bacterial pharyngitis. She states that the day after the steroid shot she felt much better but then symptoms worsened again. Patient filled her antibiotic prescription yesterday and has only taken 2 doses. No associated fevers, nausea or vomiting, upper respiratory congestion/rhinorrhea, cough, difficulty with secretions, change in voice, shortness of breath. Patient is speaking comfortably in full sentences in no distress upon initial evaluation in the emergency department. No therapy for discomfort prior to arrival. Allergies and Home Medications Allergies Coded Allergies: acetaminophen (Verified Allergy, Mild, NAUSEA, 06/08/18) Penicillins (Verified Allergy, Unknown, RASH, 06/08/18) amoxicillin (Verified Allergy, Unknown, 05/09/17) oxycodone (Verified Allergy, Unknown, NAUSEA, 06/08/18) Home Medications Docusate Sodium 100 Mg Capsule, 100 MG PO BID Prescribed by: MARY GLASER on 06/09/18 1005 Ibuprofen 800 Mg Tablet, 800 MG PO q8 PRN for BACK PAIN Prescribed by: MARY E DOMS on 06/09/18 1005 Oxycodone HCl/Acetaminophen 1 Each Tablet, 1 EACH PO Q6H PRN for PAIN-MODERATE Prescribed by: MARY E DOMS on 06/08/18 0827 Oxycodone HCl/Acetaminophen 1 Each Tablet, 1 TAB PO Q6H PRN for PAIN-MODERATE Prescribed by: MARY FERNANDESS on 06/09/18 1005 Pnv No.118/Iron Fumarate/FA 1 Each Tab.chew, 2 EACH PO DAILY, (Reported) Patient Home Medication List Home Medication List Reviewed: Yes Review of Systems Review of Systems Constitutional: see HPI All Other Systems Reviewed Negative Unless Noted: Yes (Negative excepted noted.) Past Bqetuls-Texzpv-[place] Hx Past Med/Social Hx: Reviewed Nursing Past Med/Soc Hx Patient Social History Alcohol Use: Occasionally Uses Number of Drinks Today: AA Alcohol Beverage of Choice: Beer Recreational Drug Use: Yes Drug of Choice: marijuana Smoking Status: Current Everyday Smoker Type Used: Cigarettes 2nd Hand Smoke Exposure: No Recent Foreign Travel: No Contact w/Someone Who Travel: No Recent Hopitalizations: No Physical Abuse: No Sexual Abuse: No Mistreated: No Fear: No Immunizations Up To Date Tetanus Booster (TDap): Unknown Seasonal Allergies Seasonal Allergies: No Past Medical History Surgeries: Yes (EAR CYST REMOVAL) Gallbladder Respiratory: Yes Asthma Currently Using CPAP: No Currently Using BIPAP: No Cardiac: No Neurological: No Genitourinary: No Gastrointestinal: No Musculoskeletal: Yes Scoliosis Endocrine: No HEENT: No Cancer: No Psychosocial: Yes (suicidal thoughts) Integumentary: No Blood Disorders: No Family Medical History Reviewed Nursing Family Hx Blood clots 19 MOTHER Scoliosis G8 BROTHER No Pertinent Family Hx Physical Exam Vital Signs Vital Signs - First Documented 02/23/19 11:25 Temp 36.1 Pulse 121 Resp 18 B/P (MAP) 126/81 (96) Pulse Ox 100 O2 Delivery Room Air Height, Weight, BMI Height: 5'2.00" Weight: 182lbs. 8.0oz. 82.508314sp; 35.4 BMI Method:Stated General Appearance: no apparent distress This is a younger female appearing nontoxic and in no acute distress. Head is normocephalic and atraumatic. Neck is supple and nontender. There is marked right sided cervical lymphadenopathy superiorly. Oropharynx is moist. There is mild posterior oropharyngeal erythema with marked peritonsillar swelling on the right with mild uvular deviation noted. Patient is tolerating secretions very well and speaking in a normal tone of voice. Lungs clear to auscultation in all stations. There is a normal S1 and S2 without rubs or gallops and capillary refill is appropriate, less than 2 seconds globally. Abdomen is soft, nontender and nondistended. Skin is warm and dry without cyanosis, clubbing or edema. Psychiatrically, the patient demonstrates appropriate mood and affect and is alert. Procedures/Interventions I&D : Site: Right palatine tonsil Progress 20-gauge needle utilized for needle aspiration with small return of purulent fluid and decompression of right peritonsillar abscess. Patient tolerated the procedure well. Progress/Results/Core Measures Results/Orders Lab Results Laboratory Tests Test 02/23/19 11:40 02/23/19 12:04 Range/Units White Blood Count 6.9 4.3-11.0 10^3/uL Red Blood Count 4.58 4.35-5.85 10^6/uL Hemoglobin 12.4 11.5-16.0 G/DL Hematocrit 38 35-52 % Mean Corpuscular Volume 82 80-99 FL Mean Corpuscular Hemoglobin 27 25-34 PG Mean Corpuscular Hemoglobin Concent 33 32-36 G/DL Red Cell Distribution Width 14.0 10.0-14.5 % Platelet Count 239 130-400 10^3/uL Mean Platelet Volume 9.5 7.4-10.4 FL Neutrophils (%) (Auto) 68 42-75 % Lymphocytes (%) (Auto) 20 12-44 % Monocytes (%) (Auto) 11 0-12 % Eosinophils (%) (Auto) 1 0-10 % Basophils (%) (Auto) 0 0-10 % Neutrophils # (Auto) 4.6 1.8-7.8 X 10^3 Lymphocytes # (Auto) 1.4 1.0-4.0 X 10^3 Monocytes # (Auto) 0.8 0.0-1.0 X 10^3 Eosinophils # (Auto) 0.1 0.0-0.3 10^3/uL Basophils # (Auto) 0.0 0.0-0.1 10^3/uL Sodium Level 139 135-145 MMOL/L Potassium Level 3.4 L 3.6-5.0 MMOL/L Chloride Level 100 98-107 MMOL/L Carbon Dioxide Level 28 21-32 MMOL/L Anion Gap 11 5-14 MMOL/L Blood Urea Nitrogen 5 L 7-18 MG/DL Creatinine 0.64 0.60-1.30 MG/DL Estimat Glomerular Filtration Rate > 60 BUN/Creatinine Ratio 8 Glucose Level 93 70-105 MG/DL Calcium Level 9.5 8.5-10.1 MG/DL Serum Test, Qualitative NEGATIVE NEGATIVE Smear Scan OK Group A Streptococcus Screen NEGATIVE NEGATIVE My Orders Orders - CLARITZA GIORDANO MD Ct Neck (Soft Tissue) W (02/23/19 11:33) Cbc With Automated Diff (02/23/19 11:33) Basic Metabolic Panel (02/23/19 11:33) Hcg,Qualitative Serum (02/23/19 11:33) Dexamethasone Injection (Decadron Inject (02/23/19 11:45) Ketorolac Injection (Toradol Injection) (02/23/19 11:45) Iv/Invasive Line Insertion .IV start (02/23/19 11:36) Iohexol Injection (Omnipaque 350 Mg/Ml 1 (02/23/19 11:45) Received Contrast (Hold Metformin- Contr (02/23/19 11:45) Sodium Chloride Flush (Catheter Flush Sy (02/23/19 11:45) Ns (Ivpb) (Sodium Chloride 0.9% Ivpb Bag (02/23/19 11:45) Clindamycin 900 Mg/50 Ml Ivpb (Cleocin P (02/23/19 12:00) Rapid Strep A Screen (02/23/19 11:55) Lidocaine/Epi 2% 1:100,000 (Xylocaine/Ep (02/23/19 13:36) Lidocaine 2% Viscous 15 Ml (Xylocaine Vi (02/23/19 13:56) Medications Given in ED Current Medications Medications Dose Ordered Sig/Vicky Route Start Time Stop Time Status Last Admin Dose Admin Clindamycin Phosphate/Dextrose 50 ml @ 100 mls/hr ONCE ONCE IV 02/23/19 12:00 02/23/19 12:29 DC 02/23/19 12:08 100 MLS/HR Dexamethasone Sodium Phosphate 10 mg ONCE ONCE IV 02/23/19 11:45 02/23/19 11:46 DC 02/23/19 11:47 10 MG Iohexol 75 ml ONCE ONCE IV 02/23/19 11:45 02/23/19 11:46 DC 02/23/19 12:22 75 ML Ketorolac Tromethamine 30 mg ONCE ONCE IVP 02/23/19 11:45 02/23/19 11:46 DC 02/23/19 11:47 30 MG Sodium Chloride 10 ml NEEDED PRN IV 02/23/19 11:45 02/23/19 12:22 10 ML Sodium Chloride 100 ml ONCE ONCE IV 02/23/19 11:45 02/23/19 11:46 DC 02/23/19 12:22 100 ML Vital Signs/I&O 02/23/19 02/23/19 11:25 11:47 Temp 36.1 36.1 Pulse 121 Resp 18 B/P (MAP) 126/81 (96) Pulse Ox 100 O2 Delivery Room Air Progress Progress Note : Progress Note 23-year-old female, otherwise healthy, who presents with throat discomfort which has been progressive over a few days. Clinically appears to have a peritonsillar abscess versus cellulitis. Nontoxic in appearance and tolerating secretions well. We'll check labs as noted and give a dose of IV clindamycin and medication for discomfort and will obtain a soft tissue CT scan of the neck to further characterize the patient's symptoms. We will then reevaluate. Update 1400: CT confirms approximately 1 cm peritonsillar abscess on the right. Patient felt quite a bit better after pain medication and dexamethasone here in the emergency department. Needle aspiration performed as per procedure note in standard fashion to drain [employer] and a small quantity of purulent fluid was extracted. Patient resting comfortably and tolerating secretions well and states pain is controlled upon reassessment after the procedure. We will refer her to ENT for close follow-up. As she has a penicillin allergy, she has been given a dose of IV clindamycin here and we will place her on oral clindamycin and will also provide viscous lidocaine and medication for discomfort. The patient understands that if she feels worse is that of better or develops other new symptoms of concern that she will need to return immediately for reevaluation. All questions are answered. Departure Impression Primary Impression: Throat pain in adult Additional Impression: Peritonsillar abscess Disposition: HOME, SELF-CARE Condition: Improved Departure-Patient Inst. Referrals: VERENICE SCHMIDT MD NO,LOCAL PHYSICIAN (PCP) Primary Care Physician Patient Instructions: Peritonsillar Abscess, Adult (DC) Add. Discharge Instructions: Follow-up with Dr. Schmidt of [facility]. Call his office on Monday for a close followup appointment within the next 2-4 days. Take the clindamycin antibiotic and use the pain medications as instructed for symptoms. Return immediately to the emergency department if symptoms worsen or if other new symptoms of concern develop. Scripts Ibuprofen (Ibuprofen) 800 Mg Tablet 800 MG PO Q8H PRN for PAIN, #30 TAB 0 Refills Prov: CLARITZA GIORDANO MD 02/23/19 [lortab elixir] No Conflict Check 10 ML PO TID for Breakthrough Pain, #100 ML Prov: CLARITZA GIORDANO MD 02/23/19 [viscous lidocaine] No Conflict Check TIDAC PRN for throat pain, #30 ML Prov: CLARITZA GIORDANO MD 02/23/19 Clindamycin HCl (Clindamycin HCl) 150 Mg Capsule 450 MG PO TID for 10 Days, #90 CAP Prov: CLARITZA GIORDANO MD 02/23/19 CLARITZA GIORDANO MD Feb 23, 2019 11:46
[2019-02-23 12:00] LABS: HEMATOCRIT 38 % (35-52); HEMOGLOBIN 12.4 G/DL (11.5-16.0); MEAN CORPUSCULAR HEMOGLOBIN 27 PG (25-34); MEAN CORPUSCULAR VOLUME 82 FL (80-99); WHITE BLOOD COUNT 6.9 10^3/uL (4.3-11.0)
[2019-02-23] MEDS ORDERED: CLINDAMYCIN 900 MG/50 ML IVPB 50 ML IV ONE (12:00)
[2019-02-23 12:01] LABS: BASOPHILS % (AUTO) 0 % (0-10); EOSINOPHILS # (AUTO) 0.1 10^3/uL (0.0-0.3); EOSINOPHILS % (AUTO) 1 % (0-10); LYMPHOCYTES # (AUTO) 1.4 X 10^3 (1.0-4.0); LYMPHOCYTES % (AUTO) 20 % (12-44); MEAN CORPUSCULAR HGB CONC 33 G/DL (32-36); MEAN PLATELET VOLUME 9.5 FL (7.4-10.4); MONOCYTES # (AUTO) 0.8 X 10^3 (0.0-1.0); MONOCYTES % (AUTO) 11 % (0-12); NEUTROPHILS # (AUTO) 4.6 X 10^3 (1.8-7.8); NEUTROPHILS % (AUTO) 68 % (42-75); PLATELET COUNT 239 10^3/uL (130-400)
[2019-02-23 12:02] LABS: SMEAR SCAN COMMENT OK
[2019-02-23 12:11] LABS: POTASSIUM 3.4 MMOL/L (3.6-5.0); SODIUM 139 MMOL/L (135-145)
[2019-02-23 12:12] LABS: BUN/CREATININE RATIO 8; CALCIUM 9.5 MG/DL (8.5-10.1); CARBON DIOXIDE 28 MMOL/L (21-32); CHLORIDE 100 MMOL/L (98-107); CREATININE SERUM 0.64 MG/DL (0.60-1.30); GFR ESTIMATED > 60; GLUCOSE 93 MG/DL (70-105)
--- NOTE | 2019-02-23 12:35 | NUR ---
Call to [facility] [place] followed by Physical Therapist Center Manager to check on ENT call schedule. The Physical Therapist Center Manager [place] confirms no coverage is listed this weekend.
--- NOTE | 2019-02-23 12:46 | Diagnostic Imaging Report ---
Clinical indication: Patient with sore throat and difficulty swallowing. Evaluate for abscess. Exam: Axial CT scan of the neck soft tissue performed with 75 cc of Omnipaque 350 IV contrast. Coronal and sagittal reformatted images are created. Comparison: None. Findings: There is enlargement of the bilateral palatine tonsils with enhancement and moderate narrowing of the airway. There is a 0.8 cm x 1.0 cm x 1.3 cm (AP x Trans x CC) low density circumscribed fluid collection in the right retro right tonsillar region related to abscess. There is no other neck soft tissue abscess seen. There is also prominence and enhancement of the posterior nasopharyngeal adenoidal soft tissue and posterior lingual adenoid soft tissue. There is bilateral cervical lymphadenopathy. Marker lymph node seen in the right level 2A region measures 2.1 cm x 1.5 cm. The oral cavity, tongue, sublingual and submandibular region shows no other significant abnormality. Prominent sublingual glands are noted. Thyroid gland and salivary glands are otherwise unremarkable. Visualized upper lung sommer are unremarkable. Cervical spine is unremarkable. Limited visualization intracranial structures are unremarkable. Visualized paranasal sinuses and mastoid air cells are unremarkable. Impression: 1: There is bilateral palatine tonsillitis a 1.3 cm right peritonsillar abscess. 2: There is enlargement of the posterior nasal pharyngeal adenoid soft tissue likely reactive. 3: There is bilateral cervical lymphadenopathy. Results of this report discussed with Dr. Janusz Gutierrez via the telephone on 02/23/2019 at 1235 hours. Dictated by: Dictated on workstation # [id number]
[2019-02-23] MEDS ORDERED: LIDOCAINE/EPI 2% 1:100,00 (XYLOCAINE) 20 ML VIAL INJ ONE (13:36)
[2019-02-23] MEDS ORDERED: LIDOCAINE/EPI 2% 1:100,00 (XYLOCAINE) 20 ML VIAL ONE (13:36)
[2019-02-23] MEDS ORDERED: LIDOCAINE 2% VISCOUS 15 ML UDC ONE (13:56)
[2019-02-23] MEDS ORDERED: LIDOCAINE 2% VISCOUS 15 ML UDC PO ONE (14:15)
[2019-02-23] MEDS ORDERED: CLIN150C17 PO (14:22)
[2019-02-23] MEDS ORDERED: viscous lidocaine BC (14:22)
[2019-02-23] MEDS ORDERED: lortab elixir PO (14:22)
[2019-02-23] MEDS ORDERED: IBUP-1780 PO (14:22)
[2019-02-23 14:28] VITALS: BP 110/65
== END 2019-02-23 14:28 | disposition home or self-care (01) ==
LOC: EDUNIT# 11:22 → ER FS 11:23
DX: J36 Peritonsillar abscess (principal); J45.909 Unspecified asthma, uncomplicated; F17.210 Nicotine dependence, cigarettes, uncomplicated; Z88.6 Allergy status to analgesic agent; Z88.0 Allergy status to penicillin; Z88.5 Allergy status to narcotic agent
CPT/HCPCS: 36415; 42700; 70491; 80048; 84703; 85025; 87430; 96365; 96375

== ENCOUNTER 2019-03-04 00:14 | Emergency (ER) | payer SELFPAY ==
[~2019-03-04] VITALS: Ht 157.5 cm; Wt 63.7 kg
[~2019-03-04 00:14] MED LIST changes: +CLIN150C17 PO; +lortab elixir PO; +viscous lidocaine BC
[2019-03-04] MEDS ORDERED: LACTATED RINGERS 1,000 ML IV ONE (00:24)
[2019-03-04] MEDS ORDERED: CLINDAMYCIN 600 MG/50 ML IVPB 50 ML IV ONE (00:30)
--- NOTE | 2019-03-04 00:31 | ED EENT ---
History of Present Illness General Chief Complaint: Oral/Throat Problems Stated Complaint: THROAT ABCESS Source: patient Exam Limitations: no limitations History of Present Illness Date Seen by Provider: Mar 04, 2019 Time Seen by Provider: 00:15 Initial Comments Patient presents to ER by private conveyance with chief complaint of peritonsillar abscess on the right. She's having difficulty swallowing fluids because of pain but no problems breathing. She was here for the same thing a week ago and was referred to Dr. Schmidt who did a incise and drain. He then ordered her some antibiotics but she did not fill them because of cost. She says now it is back up to the same level as it was when she came the first time. She has allergies to amoxicillin and penicillin. No other significant medical history. No epistaxis or runny nose. No nausea vomiting. She does not want anything for the pain right now. Allergies and Home Medications Allergies Coded Allergies: acetaminophen (Verified Allergy, Mild, NAUSEA, 06/08/18) Penicillins (Verified Allergy, Unknown, RASH, 06/08/18) amoxicillin (Verified Allergy, Unknown, 05/09/17) oxycodone (Verified Allergy, Unknown, NAUSEA, 06/08/18) Home Medications Clindamycin HCl 150 Mg Capsule, 450 MG PO TID Prescribed by: CLARITZA GIORDANO on 02/23/19 1422 Clindamycin HCl 150 Mg Capsule, 450 MG PO Q6H Prescribed by: NASRIN ROMERO on 03/04/19 0053 Docusate Sodium 100 Mg Capsule, 100 MG PO BID Prescribed by: MARY GLASER on 06/09/18 1005 Ibuprofen 800 Mg Tablet, 800 MG PO q8 PRN for BACK PAIN Prescribed by: MARY GLASER on 06/09/18 1005 Ibuprofen 800 Mg Tablet, 800 MG PO Q8H PRN for PAIN Prescribed by: CLARITZA GIORDANO on 02/23/19 1422 Oxycodone HCl/Acetaminophen 1 Each Tablet, 1 EACH PO Q6H PRN for PAIN-MODERATE Prescribed by: MARY GLASER on 06/08/18 0827 Oxycodone HCl/Acetaminophen 1 Each Tablet, 1 TAB PO Q6H PRN for PAIN-MODERATE Prescribed by: MARY GLASER on 06/09/18 1005 Pnv No.118/Iron Fumarate/FA 1 Each Tab.chew, 2 EACH PO DAILY, (Reported) [lortab elixir] , 10 ML PO TID Prescribed by: CLARITZA GIORDANO on 02/23/191421 [viscous lidocaine] , BC TIDAC PRN for throat pain Prescribed by: CLARITZA GIORDANO on 02/23/191421 Patient Home Medication List Home Medication List Reviewed: Yes Review of Systems Review of Systems Constitutional: No chills, No fever Eyes: Denies Blindness, Denies Drainage Ears: Denies Dizziness, Denies Pain Nose: denies clots, denies congestion Mouth: denies clots, denies loose teeth Throat: see HPI, pain, swelling Respiratory: No cough, No short of breath Cardiovascular: No chest pain, No edema Past Bhjrxrv-Kzhtlc-Nwahdl Hx Patient Social History Alcohol Use: Occasionally Uses Alcohol Beverage of Choice: Beer Recreational Drug Use: Yes Drug of Choice: marijuana Smoking Status: Current Everyday Smoker Type Used: Cigarettes 2nd Hand Smoke Exposure: No Recent Foreign Travel: No Contact w/Someone Who Travel: No Recent Hopitalizations: No Immunizations Up To Date Tetanus Booster (TDap): Unknown Seasonal Allergies Seasonal Allergies: No Past Medical History Surgeries: Yes (EAR CYST REMOVAL) Gallbladder Respiratory: Yes Asthma Currently Using CPAP: No Currently Using BIPAP: No Cardiac: No Neurological: No Genitourinary: No Gastrointestinal: No Musculoskeletal: Yes Scoliosis Endocrine: No HEENT: No Cancer: No Psychosocial: Yes (suicidal thoughts) Integumentary: No Blood Disorders: No Family Medical History Blood clots 19 MOTHER Scoliosis G8 BROTHER No Pertinent Family Hx Physical Exam Vital Signs Vital Signs - First Documented 03/04/19 00:24 Temp 36.0 Pulse 80 Resp 16 B/P (MAP) 118/83 (95) Pulse Ox 97 O2 Delivery Room Air Height, Weight, BMI Height: 5'2.00" Weight: 182lbs. 8.0oz. 82.452009kh; 25.00 BMI Method:Stated General Appearance: WD/WN, mild distress Eyes: bilateral eye normal inspection, bilateral eye PERRL, bilateral eye EOMI Ears: bilateral ear auricle normal, bilateral ear canal normal Nose: normal inspection; No active bleeding Mouth/Throat: tonsillar swelling (right sided modest swelling to the midline peritonsillar abscess without exudate or discharge.) Neck: tender lateral (anterior lateral soft tissue swelling palpable and tender to palpation.) Cardiovascular: normal peripheral pulses, regular rate, rhythm, tachycardia (105/m) Respiratory: no respiratory distress, no accessory muscle use Progress/Results/Core Measures Results/Orders My Orders Orders - NASRIN ROMERO Clindamycin 600 Mg/50 Ml Ivpb (Cleocin P (03/04/19 00:30) Ed Iv/Invasive Line Start (03/04/19 00:24) Lactated Ringers (Lr 1000 Ml Iv Solution (03/04/19 00:24) Medications Given in ED Current Medications Medications Dose Ordered Sig/Vicky Route Start Time Stop Time Status Last Admin Dose Admin Clindamycin Phosphate/Dextrose 50 ml @ 100 mls/hr ONCE ONCE IV 03/04/19 00:30 03/04/19 00:59 DC 03/04/19 00:39 100 MLS/HR Lactated Ringer's 1,000 ml @ 0 mls/hr Q0M ONCE IV 03/04/19 00:24 10 00:26 DC 03/04/19 00:39 0 MLS/HR Vital Signs/I&O 03/04/19 00:24 Temp 36.0 Pulse 80 Resp 16 B/P (MAP) 118/83 (95) Pulse Ox 97 O2 Delivery Room Air Progress Progress Note : Time: 00:29 Progress Note Using a shared decision making model we discussed plans to workup and/or treat the patient. She would like a prescription sent to [facility]. We have explained that she would have to see a [facility] doctor to get her prescription filled there. Clindamycin would be a reasonable choice. Since she is mildly tachycardic we'll give her some IV fluids as well as clindamycin through the IV and set her up to see Dr. Schmidt tomorrow. The patient is in agreement with this plan. She is afebrile. Departure Impression Primary Impression: Peritonsillar abscess Disposition: HOME, SELF-CARE Condition: Stable Departure-Patient Inst. Decision time for Depature: 01:18 Referrals: VERENICE SCHMIDT MD NO,LOCAL PHYSICIAN (PCP) Primary Care Physician Patient Instructions: Peritonsillar Abscess, Adult (DC) Add. Discharge Instructions: Call Dr. Schmidt's clinic tomorrow morning and request follow-up for repeat incise and drainage. supervisor finishing room the clindamycin and start taking 450 mg 4 times a day with food. Tylenol and ibuprofen as necessary for pain. Salt water gargles as necessary for pain and swelling. Immediately return to the ER having difficulty breathing, choking or other worrisome concerns. All discharge instructions reviewed with patient and/or family. Voiced understanding. Scripts Clindamycin HCl (Clindamycin HCl) 150 Mg Capsule 450 MG PO Q6H, #126 CAP 0 Refills Prov: NASRIN ROMERO 03/04/19 Work/School Note: Work Release Form Date Seen in the Emergency Department: Mar 04, 2019 Return to Work: Mar 05, 2019 Restrictions: No Restrictions Copy Copies To 1: VERENICE SCHMIDT MD, TITUS J Mar 04, 2019 00:31
[2019-03-04] MEDS ORDERED: CLIN150C17 PO (00:53)
[2019-03-04 01:25] VITALS: BP 108/62
== END 2019-03-04 01:25 | disposition home or self-care (01) ==
LOC: EDUNIT# 00:14 → ER FS 00:15
DX: J36 Peritonsillar abscess (principal); J45.909 Unspecified asthma, uncomplicated; F17.210 Nicotine dependence, cigarettes, uncomplicated; Z88.6 Allergy status to analgesic agent; Z88.0 Allergy status to penicillin; Z88.5 Allergy status to narcotic agent

== ENCOUNTER → 2019-08-19 | Outpatient (CLI) | payer MEDICAID, OTHER ==
[~2019-08-19] MED LIST changes: -TRAM50TA2 PO; +TRM50T PO
== END ==
LOC: LAB FS 12:33
PROVIDERS: ATTEND Family Medicine
DX: N93.9 Abnormal uterine and vaginal bleeding, unspecified (principal); N92.6 Irregular menstruation, unspecified
CPT/HCPCS: 36415; 84702

== ENCOUNTER 2019-08-24 10:39 | Emergency (ER) | payer OTHER ==
[~2019-08-24] VITALS: Ht 157.4 cm; Wt 54.3 kg
--- OUTSIDE RECORDS SUMMARY | 2019-08-24 10:45 | XMS REPORT | Continuity of Care Document ---
Author Organization Unknown Address Unknown Phone Unavailable Allergies Active Description Code Type Severity Reaction Onset Reported/Identified Relationship to Patient Clinical Status Yes acetaminophen [id number] Ken g Allergy Unknown N/A 05/09/2017 Yes amoxicillin [id number] Drug Aller gy Unknown N/A 05/09/2017 Yes oxycodone [id number] Drug Allergy Unknown N/A 05/09/2017 Yes acetaminophen [id number] Ken g Allergy Mild NAUSEA 06/08/2018 Yes oxycodone [id number] Drug Allergy Unknown NAUSEA 06/08/2018 Yes Penicillins [id number] Drug Aller gy Unknown RASH 06/08/2018 Medications There is no data. Problems Date Dx Coded Attending Type Code Diagnosis Diagnosed By 05/09/2017 ISSA TORREZ MD Ot 780 .2 SYNCOPE AND COLLAPSE 05/09/2017 REINALDO BECKER Ot F12.10 CANNABIS ABUSE, UNCOMPLICATED 05/09/2017 REINALDO BECKER Ot N75.1 ABSCESS OF [place] GL[place] 05/11/2017 REINALDO BECKER Ot F12.10 CANNABIS ABUSE, UNCOMPLICATED 05/11/2017 REINALDO BECKER Ot N75.1 ABSCESS OF BARTHOLIN'S GL[place] 07/19/2017 ISSA TORREZ MD Ot 780 .2 SYNCOPE AND COLLAPSE 08/30/2017 ISSA TORREZ MD Ot 780 .2 SYNCOPE AND COLLAPSE 06/04/2018 SEALS DO, MARY E Ot O46.9 3 ANTEPARTUM HEMORRHAGE, UNSPECIFIED, THIR 06/04/2018 SEALS DO, MARY E Ot Z3A.3 9 39 WEEKS GESTATION OF 06/06/2018 SEALS DO, MARY E Ot O46.9 3 ANTEPARTUM HEMORRHAGE, UNSPECIFIED, THIR 06/06/2018 SEALS DO, MARY E Ot Z3A.3 9 39 WEEKS GESTATION OF 06/09/2018 SEALS DO, MARY E Ot O69.81X0 LABOR AND DEL COMP BY CORD AROUND NECK, 06/09/2018 MAYRA GLASER DORY Christie Ot Z37.0 SINGLE LIVE 06/09/2018 MARY GLASER DO Ot Z3A.3 9 39 WEEKS GESTATION OF 06/09/2018 MAYRA GLASER DORY Christie Ot Z88.0 ALLERGY STATUS TO PENICILLIN 06/09/2018 ALFREDITO STOVER, MARY E Ot Z88.1 ALLERGY STATUS TO OTHER ANTIBIOTIC AGENT 06/09/2018 ALFREDITO STOVER MARY E Ot Z88.5 ALLERGY STATUS TO NARCOTIC AGENT STATUS 06/09/2018 ALFREDITO STOVER, MARY E Ot Z88.6 ALLERGY STATUS TO ANALGESIC AGENT STATUS 08/21/2018 MARY CERDA DO Ot F12.10 CANNABIS ABUSE, UNCOMPLICATED 08/21/2018 MARY CERDA DO Ot F17.210 NICOTINE DEPENDENCE, CIGARETTES, UNCOMPL 08/21/2018 MARY CERDA DO Ot F32 .9 MAJOR DEPRESSIVE DISORDER, SINGLE EPISOD 08/21/2018 MARY CERDA DO, Ot F41 .9 ANXIETY DISORDER, UNSPECIFIED 08/21/2018 MARY CERDA DO Ot J45.909 UNSPECIFIED ASTHMA, UNCOMPLICATED 08/21/2018 MARY CERDA DO Ot O90.89 OTH COMPLICATIONS OF THE PUERPERIUM, NEC 08/21/2018 MARY CERDA DO Ot O99.325 DRUG USE COMPLICATING THE PUERPERIUM 08/21/2018 MARY CERDA DO Ot O99.335 SMOKING (TOBACCO) COMPLICATING THE PUERP 08/21/2018 MARY CERDA DO Ot O99.345 OTHER MENTAL DISORDERS COMPLICATING THE 08/21/2018 MARY CERDA DO Ot R45.851 SUICIDAL IDEATIONS 02/23/2019 CLARITZA GIORDANO MD Ot F17.210 NICOTINE DEPENDENCE, CIGARETTES, UNCOMPL 02/23/2019 CLARITZA GIORDANO MD Ot J36 PERITONSILLAR ABSCESS 02/23/2019 CLARITZA GIORDANO MD Ot J45.909 UNSPECIFIED ASTHMA, UNCOMPLICATED 02/23/2019 CLARITZA GIORDANO MD Ot R07. 0 PAIN IN THROAT 02/23/2019 CLARITZA GIORDANO MD Ot Z88. 0 ALLERGY STATUS TO PENICILLIN 02/23/2019 CLARITZA GIORDANO MD Ot Z88. 5 ALLERGY STATUS TO NARCOTIC AGENT STATUS 02/23/2019 CLARITZA GIORDANO MD Ot Z88. 6 ALLERGY STATUS TO ANALGESIC AGENT STATUS 02/27/2019 CLARITZA GIORDANO MD Ot F17.210 NICOTINE DEPENDENCE, CIGARETTES, UNCOMPL 02/27/2019 CLARITZA GIORDANO MD Ot J36 PERITONSILLAR ABSCESS 02/27/2019 CLARITZA GIORDANO MD Ot J45.909 UNSPECIFIED ASTHMA, UNCOMPLICATED 02/27/2019 CLARITZA GIORDANO MD Ot R07. 0 PAIN IN THROAT 02/27/2019 CLARITZA GIORDANO MD Ot Z88. 0 ALLERGY STATUS TO PENICILLIN 02/27/2019 CLARITZA GIORDANO MD Ot Z88. 5 ALLERGY STATUS TO NARCOTIC AGENT STATUS 02/27/2019 CLARITZA GIORDANO MD Ot Z88. 6 ALLERGY STATUS TO ANALGESIC AGENT STATUS 02/27/2019 CLARITZA GIORDANO MD Ot F17.210 NICOTINE DEPENDENCE, CIGARETTES, UNCOMPL 02/27/2019 CLARITZA GIORDANO MD Ot J36 PERITONSILLAR ABSCESS 02/27/2019 CLARITZA GIORDANO MD Ot J45.909 UNSPECIFIED ASTHMA, UNCOMPLICATED 02/27/2019 CLARITZA GIORDANO MD Ot R07. 0 PAIN IN THROAT 02/27/2019 CLARITZA GIORDANO MD Ot Z88. 0 ALLERGY STATUS TO PENICILLIN 02/27/2019 CLARITZA GIORDANO MD Ot Z88. 5 ALLERGY STATUS TO NARCOTIC AGENT STATUS 02/27/2019 CLARITZA GIORDANO MD Ot Z88. 6 ALLERGY STATUS TO ANALGESIC AGENT STATUS 03/04/2019 NASRIN ROMERO MD Ot F17.210 NICOTINE DEPENDENCE, CIGARETTES, UNCOMPL 03/04/2019 NASRIN ROMERO MD Ot J36 PERITONSILLAR ABSCESS 03/04/2019 NASRIN ROMERO MD Ot J45.909 UNSPECIFIED ASTHMA, UNCOMPLICATED 03/04/2019 NASRIN ROMERO MD Ot Z88. 0 ALLERGY STATUS TO PENICILLIN 03/04/2019 NASRIN ROMERO MD Ot Z88. 5 ALLERGY STATUS TO NARCOTIC AGENT STATUS 03/04/2019 NASRIN ROMERO MD Ot Z88. 6 ALLERGY STATUS TO ANALGESIC AGENT STATUS 03/06/2019 NASRIN ROMERO MD Ot F17.210 NICOTINE DEPENDENCE, CIGARETTES, UNCOMPL 03/06/2019 ANSRIN ROMERO MD Ot J36 PERITONSILLAR ABSCESS 03/06/2019 NASRIN ROMERO MD J Ot J45.909 UNSPECIFIED ASTHMA, UNCOMPLICATED 03/06/2019 NASRIN ROMERO MD J Ot Z88. 0 ALLERGY STATUS TO PENICILLIN 03/06/2019 NASRIN ROMERO MD Ot Z88. 5 ALLERGY STATUS TO NARCOTIC AGENT STATUS 03/06/2019 NASRIN ROMERO MD J Ot Z88. 6 ALLERGY STATUS TO ANALGESIC AGENT STATUS 03/10/2019 NASRIN ROMERO MD Ot F17.210 NICOTINE DEPENDENCE, CIGARETTES, UNCOMPL 03/10/2019 NASRIN ROMERO MD Ot J36 PERITONSILLAR ABSCESS 03/10/2019 NASRIN ROMERO MD Ot J45.909 UNSPECIFIED ASTHMA, UNCOMPLICATED 03/10/2019 NASRIN ROMERO MD Ot Z88. 0 ALLERGY STATUS TO PENICILLIN 03/10/2019 NASRIN ROMERO MD Ot Z88. 5 ALLERGY STATUS TO NARCOTIC AGENT STATUS 03/10/2019 NASRIN ROMERO MD Ot Z88. 6 ALLERGY STATUS TO ANALGESIC AGENT STATUS 08/20/2019 SARAH MOORE MD Ot N92.6 IRREGULAR MENSTRUATION, UNSPECIFIED 08/20/2019 SARAH MOORE MD Ot N93.9 ABNORMAL UTERINE AND VAGINAL BLEEDING, U 08/20/2019 SARAH MOROE MD Ot N92.6 IRREGULAR MENSTRUATION, UNSPECIFIED 08/20/2019 SARAH MOORE MD Ot N93.9 ABNORMAL UTERINE AND VAGINAL BLEEDING, U Procedures Code Description Performed By Per formed On [id number] DI VISION OF FEMALE PERINEUM, EXTERNAL AP 06/08/2018 [id number] DE LIVERY OF PRODUCTS OF CONCEPTION, EXTE 06/08/2018 [id number] IN TRODUCTION OF OTH HORMONE INTO PERIPH 06/08/2018 Results Test Result Range Gram stain microscopy - 05/09/17 13:55 Gram stain microscopy Few gram positive cocc i, few coryneform gram positive rods NRG Bacteria identification in wound by cult ure - 05/09/17 13:55 Bacteria identification in wound by culture [id number] NRG FREE TEXT EXTERNAL NO FURTHER STUDIES UNLESS REQUE STED NRG QUANTITY OF GROWTH Scant Growth NRG Urine drug screening test - 06/08/18 05: 05 Urine phencyclidine detection by screening method NEGATIVE NEGATIVE Urine benzodiazepines detection by screening method NEGATIVE NEGATIVE Urine cocaine detection NEGATIVE NEGATI VE Urine amphetamines detection by screening method N EGATIVE NEGATIVE Urine methamphetamine detection by screening method NEGATIVE NEGATIVE Urine cannabinoids detection by screening method N EGATIVE NEGATIVE Urine opiates detection by screening method NEGATI VE NEGATIVE Urine barbiturates detection NEGATIVE N EGATIVE Screening urine tricyclic antidepressants detection NEGATIVE NEGATIVE Urine methadone detection by screening method NEGA TIVE NEGATIVE Urine oxycodone detection NEGATIVE NEGA TIVE Urine propoxyphene detection NEGATIVE N EGATIVE Complete blood count (CBC) with automate d white blood cell (WBC) differential - 06/08/18 06:35 Blood leukocytes automated count (number/volume) 8.4 10*3/uL 4.3-11.0 Blood erythrocytes automated count (number/volume) 3.94 10*6/uL 4.35-5.85 Venous blood hemoglobin measurement (mass/volume) 9.8 g/dL 11.5-16.0 Blood hematocrit (volume fraction) 31 % 35-52 Automated erythrocyte mean corpuscular volume 80 [ foz_us] 80-99 Automated erythrocyte mean corpuscular h emoglobin (mass per erythrocyte) 25 pg 25-34 Automated erythrocyte mean corpuscular h emoglobin concentration measurement (mass/volume) 31 g/dL 32-36 Automated erythrocyte distribution width ratio 14. 2 % 10.0- 14.5 Automated blood platelet count (count/volume) 283 10*3/uL 130-400 Automated blood platelet mean volume measurement 9.4 [foz_us] 7.4-10.4 Automated blood neutrophils/100 leukocytes 71 % 42-75 Automated blood lymphocytes/100 leukocytes 18 % 12-44 Blood monocytes/100 leukocytes 10 % 0-12 Automated blood eosinophils/100 leukocytes 1 % 0-10 Automated blood basophils/100 leukocytes 0 % 0-10 Blood neutrophils automated count (number/volume) 6.0 10*3 1.8-7.8 Blood lymphocytes automated count (number/volume) 1.5 10*3 1.0-4.0 Blood monocytes automated count (number/volume) 0. 8 10*3 0.0-1.0 Automated eosinophil count 0.1 10*3/uL 0 .0-0.3 Automated blood basophil count (count/volume) 0.0 10*3/uL 0.0-0.1 Blood type T Indirect antibody screen pa celina - 06/08/18 06:35 ABO+Rh group AP NRG Transfusion band number [id number] NRG Blood group antibody screen NEGATIVE NR G Complete blood count (CBC) with automate d white blood cell (WBC) differential - 06/09/18 06:05 Blood leukocytes automated count (number/volume) 13.7 10*3/uL 4.3-11.0 Blood erythrocytes automated count (number/volume) 3.27 10*6/uL 4.35-5.85 Venous blood hemoglobin measurement (mass/volume) 8.1 g/dL 11.5-16.0 Blood hematocrit (volume fraction) 26 % 35-52 Automated erythrocyte mean corpuscular volume 80 [ foz_us] 80-99 Automated erythrocyte mean corpuscular h emoglobin (mass per erythrocyte) 25 pg 25-34 Automated erythrocyte mean corpuscular h emoglobin concentration measurement (mass/volume) 31 g/dL 32-36 Automated erythrocyte distribution width ratio 14. 2 % 10.0- 14.5 Automated blood platelet count (count/volume) 258 10*3/uL 130-400 Automated blood platelet mean volume measurement 9.0 [foz_us] 7.4-10.4 Automated blood neutrophils/100 leukocytes 80 % 42-75 Automated blood lymphocytes/100 leukocytes 12 % 12-44 Blood monocytes/100 leukocytes 7 % 0-12 Automated blood eosinophils/100 leukocytes 0 % 0-10 Automated blood basophils/100 leukocytes 0 % 0-10 Blood neutrophils automated count (number/volume) 11.0 10*3 1.8-7.8 Blood lymphocytes automated count (number/volume) 1.6 10*3 1.0-4.0 Blood monocytes automated count (number/volume) 1. 0 10*3 0.0-1.0 Automated eosinophil count 0.1 10*3/uL 0 .0-0.3 Automated blood basophil count (count/volume) 0.0 10*3/uL 0.0-0.1 GC/CHLAMYDIA (SWAB OR URINE)-RAPID - 05/02 16:38 CHLAMYDIA TRACHOMATIS RNA, TMA NOT DETECTED NOT DETECTED NEISSERIA GONORRHOEAE RNA, TMA NOT DETECTED NOT DETECTED COMMENT NRG Complete urinalysis with reflex to cultu re - 08/21/18 17:15 Urine color determination YELLOW NRG Urine clarity determination SL CLOUDY N RG Urine pH measurement by test strip 8.0 5-9 Specific gravity of urine by test strip 1.010 1.016-1.022 Urine protein assay by test strip, semi-quantitative NEGATIVE NEGATIVE Urine glucose detection by automated test strip NE GATIVE NEGATIVE Erythrocytes detection in urine sediment by light micr oscopy NEGATIVE NEGATIVE Urine ketones detection by automated test strip NE GATIVE NEGATIVE Urine nitrite detection by test strip NEGATIVE NEGATIVE Urine total bilirubin detection by test strip NEGA TIVE NEGATIVE Urine urobilinogen measurement by automated test strip (mass/volume) 0.2 mg/dL NORMAL Urine leukocyte esterase detection by dipstick 3+ NEGATIVE Automated urine sediment erythrocyte cou nt by microscopy (number/high power field) NONE NRG Automated urine sediment leukocyte count by microscopy (number/high power field) [HPF] NRG Bacteria detection in urine sediment by light microsco py FEW NRG Squamous epithelial cells detection in u rine sediment by light microscopy 25-50 NRG Crystals detection in urine sediment by light microsco py NONE NRG Casts detection in urine sediment by light microscopy NONE NRG Mucus detection in urine sediment by light microscopy NEGATIVE NRG Complete urinalysis with reflex to culture YES NRG Urine beta human chorionic gonadotropin (hCG) measurement - 08/21/18 17:15 Urine beta human chorionic gonadotropin (hCG) measurem ent NEGATIVE NEGATIVE Urine drug screening test - 08/21/18 17: 15 Urine phencyclidine detection by screening method NEGATIVE NEGATIVE Urine benzodiazepines detection by screening method NEGATIVE NEGATIVE Urine cocaine detection NEGATIVE NEGATI VE Urine amphetamines detection by screening method N EGATIVE NEGATIVE Urine methamphetamine detection by screening method NEGATIVE NEGATIVE Urine cannabinoids detection by screening method P OSITIVE NEGATIVE Urine opiates detection by screening method NEGATI VE NEGATIVE Urine barbiturates detection NEGATIVE N EGATIVE Screening urine tricyclic antidepressants detection NEGATIVE NEGATIVE Urine methadone detection by screening method NEGA TIVE NEGATIVE Urine oxycodone detection NEGATIVE NEGA TIVE Urine propoxyphene detection NEGATIVE N EGATIVE Bacterial urine culture - 08/21/18 17:15 Bacterial urine culture SEE REPORT NRG COLONY COUNT . NRG Complete blood count (CBC) with automate d white blood cell (WBC) differential - 08/21/18 17:38 Blood leukocytes automated count (number/volume) 6.8 10*3/uL 4.3-11.0 Blood erythrocytes automated count (number/volume) 4.83 10*6/uL 4.35-5.85 Venous blood hemoglobin measurement (mass/volume) 12.0 g/dL 11.5-16.0 Blood hematocrit (volume fraction) 39 % 35-52 Automated erythrocyte mean corpuscular volume 81 [ foz_us] 80-99 Automated erythrocyte mean corpuscular h emoglobin (mass per erythrocyte) 25 pg 25-34 Automated erythrocyte mean corpuscular h emoglobin concentration measurement (mass/volume) 31 g/dL 32-36 Automated erythrocyte distribution width ratio 16. 0 % 10.0- 14.5 Automated blood platelet count (count/volume) 311 10*3/uL 130-400 Automated blood platelet mean volume measurement 9.5 [foz_us] 7.4-10.4 Automated blood neutrophils/100 leukocytes 59 % 42-75 Automated blood lymphocytes/100 leukocytes 32 % 12-44 Blood monocytes/100 leukocytes 7 % 0-12 Automated blood eosinophils/100 leukocytes 1 % 0-10 Automated blood basophils/100 leukocytes 1 % 0-10 Blood neutrophils automated count (number/volume) 4.0 10*3 1.8-7.8 Blood lymphocytes automated count (number/volume) 2.2 10*3 1.0-4.0 Blood monocytes automated count (number/volume) 0. 5 10*3 0.0-1.0 Automated eosinophil count 0.1 10*3/uL 0 .0-0.3 Automated blood basophil count (count/volume) 0.0 10*3/uL 0.0-0.1 Comprehensive metabolic panel - 08/21/18 17:38 Serum or plasma sodium measurement (moles/volume) 140 mmol/L 135-145 Serum or plasma potassium measurement (moles/volume) 3.7 mmol/L 3.6-5.0 Serum or plasma chloride measurement (moles/volume) 103 mmol/L 98-107 Carbon dioxide 25 mmol/L 21-32 Serum or plasma anion gap determination (moles/volume) 12 mmol/L 5-14 Serum or plasma urea nitrogen measurement (mass/volume ) 6 mg/dL 7-18 Serum or plasma creatinine measurement (mass/volume) 0.64 mg/dL 0.60-1.30 Serum or plasma urea nitrogen/creatinine mass ratio 9 NRG Serum or plasma creatinine measurement w ith calculation of estimated glomerular filtration rate > NRG Serum or plasma glucose measurement (mass/volume) 89 mg/dL 70-105 Serum or plasma calcium measurement (mass/volume) 9.6 mg/dL 8.5-10.1 Serum or plasma total bilirubin measurement (mass/volu me) 0.5 mg/dL 0.1-1.0 Serum or plasma alkaline phosphatase angela surement (enzymatic activity/volume) 95 U/L 40-136 Serum or plasma aspartate aminotransfera se measurement (enzymatic activity/volume) 28 U/L 5-34 Serum or plasma alanine aminotransferase measurement (enzymatic activity/volume) 35 U/L 0-55 Serum or plasma protein measurement (mass/volume) 7.8 g/dL 6.4-8.2 Serum or plasma albumin measurement (mass/volume) 4.8 g/dL 3.2-4.5 Serum or plasma salicylates measurement (mass/volume) - 08/21/18 17:38 Serum or plasma salicylates measurement (mass/volume) 0.4 mg/dL 5.0-20.0 Serum or plasma acetaminophen measuremen t (mass/volume) - 08/21/18 17:38 Serum or plasma acetaminophen measurement (mass/volume ) < ug/mL 10-30 Serum or plasma ethanol measurement (mas s/volume) - 08/21/18 17:38 Serum or plasma ethanol measurement (mass/volume) < mg/dL <10 CULTURE, URINE - 01/25/19 15:30 CULTURE, URINE, ROUTINE SEE NOTE NRG CULTURE, GENITAL - 01/25/19 15:30 CULTURE, GENITAL SEE NOTE NRG GC/CHLAMYDIA (SWAB OR URINE)-RAPID - 15:33 CHLAMYDIA TRACHOMATIS RNA, TMA DETECTED NOT DETECTED NEISSERIA GONORRHOEAE RNA, TMA NOT DETECTED NOT DETECTED COMMENT NRG Complete blood count (CBC) with automate d white blood cell (WBC) differential - 02/23/19 11:40 Blood leukocytes automated count (number/volume) 6.9 10*3/uL 4.3-11.0 Blood erythrocytes automated count (number/volume) 4.58 10*6/uL 4.35-5.85 Venous blood hemoglobin measurement (mass/volume) 12.4 g/dL 11.5-16.0 Blood hematocrit (volume fraction) 38 % 35-52 Automated erythrocyte mean corpuscular volume 82 [ foz_us] 80-99 Automated erythrocyte mean corpuscular h emoglobin (mass per erythrocyte) 27 pg 25-34 Automated erythrocyte mean corpuscular h emoglobin concentration measurement (mass/volume) 33 g/dL 32-36 Automated erythrocyte distribution width ratio 14. 0 % 10.0- 14.5 Automated blood platelet count (count/volume) 239 10*3/uL 130-400 Automated blood platelet mean volume measurement 9.5 [foz_us] 7.4-10.4 Automated blood neutrophils/100 leukocytes 68 % 42-75 Automated blood lymphocytes/100 leukocytes 20 % 12-44 Blood monocytes/100 leukocytes 11 % 0-12 Automated blood eosinophils/100 leukocytes 1 % 0-10 Automated blood basophils/100 leukocytes 0 % 0-10 Blood neutrophils automated count (number/volume) 4.6 10*3 1.8-7.8 Blood lymphocytes automated count (number/volume) 1.4 10*3 1.0-4.0 Blood monocytes automated count (number/volume) 0. 8 10*3 0.0-1.0 Automated eosinophil count 0.1 10*3/uL 0 .0-0.3 Automated blood basophil count (count/volume) 0.0 10*3/uL 0.0-0.1 Blood blood smear finding identification by light micr oscopy OK NRG Serum or plasma choriogonadotropin (preg ana rosa test) detection - 02/23/19 11:40 Serum or plasma choriogonadotropin ( test) de tection NEGATIVE NEGATIVE Whole blood basic metabolic panel - 02/12 07/03 11:40 Serum or plasma sodium measurement (moles/volume) 139 mmol/L 135-145 Serum or plasma potassium measurement (moles/volume) 3.4 mmol/L 3.6-5.0 Serum or plasma chloride measurement (moles/volume) 100 mmol/L 98-107 Carbon dioxide 28 mmol/L 21-32 Serum or plasma anion gap determination (moles/volume) 11 mmol/L 5-14 Serum or plasma urea nitrogen measurement (mass/volume ) 5 mg/dL 7-18 Serum or plasma creatinine measurement (mass/volume) 0.64 mg/dL 0.60-1.30 Serum or plasma urea nitrogen/creatinine mass ratio 8 NRG Serum or plasma creatinine measurement w ith calculation of estimated glomerular filtration rate > NRG Serum or plasma glucose measurement (mass/volume) 93 mg/dL 70-105 Serum or plasma calcium measurement (mass/volume) 9.5 mg/dL 8.5-10.1 Streptococcus pyogenes antigen detection - 02/23/19 12:04 Streptococcus pyogenes antigen detection NEGATIVE NEGATIVE Bacterial throat culture - 02/23/19 12:0 4 Bacterial throat culture NBS NRG Serum or plasma choriogonadotropin measu rement (units/volume) - 08/19/19 12:45 Serum or plasma choriogonadotropin measurement (units/ volume) < m[iU]/mL <5 Encounters ACCT No. Visit Date/Time Discharge Status Pt. Type Provider Facility Loc./Unit Complaint [id number] 08/21/2019 15:40:00 ACT Outpatient LORNE PEPE [facility] [id number] 01/25/2019 12:40:00 Document Registration [id number] 07/24/2018 10:00:00 Document Registration [id number] 08/19/2019 12:33:00 23:59:59 CLS Outpatient TERESA REYES, SARAH Melendez [facility] LAB FS HCG CBC [id number] 03/04/2019 00:15:00 01:25:00 DIS Emergency NICK REYES, NASRIN Greco [facility] ER FS THROAT ABCESS [id number] 02/23/2019 11:23:00 14:28:00 DIS Emergency PASQUALE REYES, CLARITZA Rodriguez [facility] ER FS SORE THROAT [id number] 08/21/2018 17:17:00 20:25:00 DIS Emergency MARY CERDA DO [facility] ER FS POSSIBLE PPD [id number] 06/08/2018 04:50:00 17:35:00 DIS Inpatient MARY GLASER DO [facility] LDRP 39WKS 4DAYS @ DATE OF I NDUCTION [id number] 06/04/2018 12:51:00 13:26:00 DIS Outpatient MARY GLASER DO [facility] WSo VAGINAL BLEEDING [id number] 05/09/2017 11:09:00 14:07:00 DIS Emergency ANAMARIA YOUNGBLOOD, REINALDO Kessler [facility] ER NEEDS CYST DRAINED [id number] 06/21/2013 11:29:00 014 23:59:59 CLS Outpatient SHAN REYES, ISSA Kerr [facility] RT SYNCOPE [id number] 07/19/2017 09:42:00 Document Registration
[2019-08-24] MEDS ORDERED: LACTATED RINGERS 1,000 ML IV ONE (10:53)
[2019-08-24] MEDS ORDERED: FAMOTIDINE 20 MG (PEPCID) TABLET PO STA (10:53)
--- NOTE | 2019-08-24 10:57 | ED Abdominal Pain ---
General Stated Complaint: ABD PAIN Source of Information: Patient Exam Limitations: No Limitations History of Present Illness Date Seen by Provider: Aug 24, 2019 Time Seen by Provider: 10:48 Initial Comments Patient presents to ER by private conveyance with chief complaint of abdominal pain right upper quadrant radiating down to her right lower quadrant worse with movement or riding in a car. It started sometime yesterday afternoon. She did not eat lunch but she did have eggs and sausage for breakfast yesterday and fish and shrimp for dinner. Food does not seem to make it worse. She's had loose stool since yesterday. She had her gallbladder out in 2013. She is being worked up for an irregular. The last [address] Monk [facility] patient and have negative hCG as well as other labs that she does not have the results back for. She does not take any medications. Other than her cholecystectomy she has no other abdominal surgeries. No fevers chills cough shortness of breath, nausea, vomiting chest pain. She has not taken anything for pain. She thought maybe she had gas but has not taken any simethicone or similar [id number], antacids. She had an unremarkable colonoscopy done the same time she had her cholecystectomy in 2013 Allergies and Home Medications Allergies Coded Allergies: acetaminophen (Verified Allergy, Mild, NAUSEA, 06/08/18) Penicillins (Verified Allergy, Unknown, RASH, 06/08/18) amoxicillin (Verified Allergy, Unknown, 05/09/17) oxycodone (Verified Allergy, Unknown, NAUSEA, 06/08/18) Home Medications Clindamycin HCl 150 Mg Capsule, 450 MG PO TID Prescribed by: CLARITZA GIORDANO on 02/23/19 1422 Clindamycin HCl 150 Mg Capsule, 450 MG PO Q6H Prescribed by: NASRIN ROMERO on 03/04/19 0053 Docusate Sodium 100 Mg Capsule, 100 MG PO BID Prescribed by: MARY GLASER on 06/09/18 1005 Ibuprofen 800 Mg Tablet, 800 MG PO q8 PRN for BACK PAIN Prescribed by: MARY GLASER on 06/09/18 1005 Ibuprofen 800 Mg Tablet, 800 MG PO Q8H PRN for PAIN Prescribed by: CLARITZA GIORDANO on 02/23/19 1422 Oxycodone HCl/Acetaminophen 1 Each Tablet, 1 EACH PO Q6H PRN for PAIN-MODERATE Prescribed by: MARY GLASER on 06/08/18 0827 Oxycodone HCl/Acetaminophen 1 Each Tablet, 1 TAB PO Q6H PRN for PAIN-MODERATE Prescribed by: MARY GLASER on 06/09/18 1005 Pnv No.118/Iron Fumarate/FA 1 Each Tab.chew, 2 EACH PO DAILY, (Reported) [lortab elixir] , 10 ML PO TID Prescribed by: CLARITZA GIORDANO on 02/23/191421 [viscous lidocaine] , BC TIDAC PRN for throat pain Prescribed by: CLARITZA GIORDANO on 02/23/191421 Patient Home Medication List Home Medication List Reviewed: Yes Review of Systems Review of Systems Constitutional: No chills, No fever EENTM: No Blurred Vision, No Double Vision, No Eye Pain Respiratory: Denies Cough Cardiovascular: Denies Chest Pain, Denies Edema Gastrointestinal: See HPI, Abdominal Pain; Denies Constipated; Diarrhea; Denies Nausea Genitourinary: Denies Burning, Denies Discharge Musculoskeletal: No back pain, No joint pain Skin: No pruritus, No rash All Other Systems Reviewed Negative Unless Noted: Yes Past Xhmrbzu-Yzaqnj-Wbqgig Hx Patient Social History Alcohol Use: Occasionally Uses Alcohol Beverage of Choice: Beer Recreational Drug Use: Yes Drug of Choice: marijuana Smoking Status: Current Everyday Smoker Type Used: Cigarettes 2nd Hand Smoke Exposure: No Recent Hopitalizations: No Immunizations Up To Date Tetanus Booster (TDap): Unknown Seasonal Allergies Seasonal Allergies: No Past Medical History Surgeries: Yes (EAR CYST REMOVAL) Gallbladder Respiratory: Yes Asthma Currently Using CPAP: No Currently Using BIPAP: No Cardiac: No Neurological: No Genitourinary: No Gastrointestinal: No Musculoskeletal: Yes Scoliosis Endocrine: No HEENT: No Cancer: No Psychosocial: Yes (suicidal thoughts) Integumentary: No Blood Disorders: No Family Medical History Blood clots 19 MOTHER Scoliosis G8 BROTHER No Pertinent Family Hx Physical Exam Vital Signs Vital Signs - First Documented 08/24/19 10:45 Temp 36.2 Pulse 122 Resp 18 B/P (MAP) 102/54 (70) Pulse Ox 100 O2 Delivery Room Air Capillary Refill : Height/Weight/BMI Height: 5'2.00" Weight: 182lbs. 8.0oz. 82.227244xt; 25.00 BMI Method:Stated General Appearance: WD/WN, mild distress (tachycardia 122.) HEENT: PERRL/EOMI; No pharynx normal (mildly dry oral mucosa) Neck: non-tender, full range of motion, normal inspection Respiratory: lungs clear, normal breath sounds, no respiratory distress, no accessory muscle use Cardiovascular: normal peripheral pulses, regular rate, rhythm Peripheral Pulses: 2+ Radial Pulses (R), 2+ Radial Pulses (L) Gastrointestinal: normal bowel sounds, soft, tenderness (right upper quadrant tenderness, rebound tenderness over McBurney's point without psoas sign, Rovsing sign or Baxter's sign.), other (old surgical scar laparoscopy right upper quadrant) Extremities: normal range of motion, normal inspection, normal capillary refill Back: normal inspection, no vertebral tenderness, CVA tenderness (R) Neurologic/Psychiatric: alert, oriented x 3 Skin: normal color, warm/dry Progress/Results/Core Measures Results/Orders Lab Results Laboratory Tests Test 08/24/19 10:55 08/24/19 11:03 Range/Units Urine Color DARK YELLOW Urine Clarity SL CLOUDY Urine pH 7.0 5-9 Urine Specific [place] 1.010 L 1.016-1.022 Urine Protein TRACE H NEGATIVE Urine Glucose (UA) NEGATIVE NEGATIVE Urine Ketones NEGATIVE NEGATIVE Urine Nitrite NEGATIVE NEGATIVE Urine Bilirubin NEGATIVE NEGATIVE Urine Urobilinogen 0.2 < = 1.0 MG/DL Urine Leukocyte Esterase 2+ H NEGATIVE Urine RBC (Auto) NEGATIVE NEGATIVE Urine RBC 0-2 /HPF Urine WBC 10-25 H /HPF Urine Squamous Epithelial Cells 5-10 /HPF Urine Crystals NONE /LPF Urine Bacteria LARGE H /HPF Urine Casts NONE /LPF Urine Mucus MODERATE H /LPF Urine Culture Indicated YES Urine Opiates Screen NEGATIVE NEGATIVE Urine Oxycodone Screen NEGATIVE NEGATIVE Urine Methadone Screen NEGATIVE NEGATIVE Urine Propoxyphene Screen NEGATIVE NEGATIVE Urine Barbiturates Screen NEGATIVE NEGATIVE Ur Tricyclic Antidepressants Screen NEGATIVE NEGATIVE Urine Phencyclidine Screen NEGATIVE NEGATIVE Urine Amphetamines Screen POSITIVE H NEGATIVE Urine Methamphetamines Screen POSITIVE H NEGATIVE Urine Benzodiazepines Screen NEGATIVE NEGATIVE Urine Cocaine Screen NEGATIVE NEGATIVE Urine Cannabinoids Screen POSITIVE H NEGATIVE White Blood Count 8.0 4.3-11.0 10^3/uL Red Blood Count 3.67 L 4.35-5.85 10^6/uL Hemoglobin 10.2 L 11.5-16.0 G/DL Hematocrit 31 L 35-52 % Mean Corpuscular Volume 84 80-99 FL Mean Corpuscular Hemoglobin 28 25-34 PG Mean Corpuscular Hemoglobin Concent 33 32-36 G/DL Red Cell Distribution Width 12.6 10.0-14.5 % Platelet Count 384 130-400 10^3/uL Mean Platelet Volume 8.9 7.4-10.4 FL Neutrophils (%) (Auto) 80 H 42-75 % Lymphocytes (%) (Auto) 13 12-44 % Monocytes (%) (Auto) 7 0-12 % Eosinophils (%) (Auto) 0 0-10 % Basophils (%) (Auto) 0 0-10 % Neutrophils # (Auto) 6.4 1.8-7.8 X 10^3 Lymphocytes # (Auto) 1.0 1.0-4.0 X 10^3 Monocytes # (Auto) 0.6 0.0-1.0 X 10^3 Eosinophils # (Auto) 0.0 0.0-0.3 10^3/uL Basophils # (Auto) 0.0 0.0-0.1 10^3/uL Sodium Level 137 135-145 MMOL/L Potassium Level 3.8 3.6-5.0 MMOL/L Chloride Level 98 98-107 MMOL/L Carbon Dioxide Level 28 21-32 MMOL/L Anion Gap 11 5-14 MMOL/L Blood Urea Nitrogen 5 L 7-18 MG/DL Creatinine 0.58 L 0.60-1.30 MG/DL Estimat Glomerular Filtration Rate > 60 BUN/Creatinine Ratio 9 Glucose Level 94 70-105 MG/DL Calcium Level 9.2 8.5-10.1 MG/DL Corrected Calcium 9.4 8.5-10.1 MG/DL Total Bilirubin 0.7 0.1-1.0 MG/DL Aspartate Amino Transf (AST/SGOT) 8 5-34 U/L Alanine Aminotransferase (ALT/SGPT) 5 0-55 U/L Alkaline Phosphatase 72 40-136 U/L C-Reactive Protein 15.22 H <0.50 MG/DL Total Protein 7.1 6.4-8.2 GM/DL Albumin 3.8 3.2-4.5 GM/DL Lipase 18 8-78 U/L My Orders Orders - NASRIN ROMERO Ua Culture If Indicated (08/24/19 10:41) Urine Bedside (08/24/19 10:41) Drug Screen Stat (Urine) (08/24/19 10:53) Ed Iv/Invasive Line Start (08/24/19 10:53) Lactated Ringers (Lr 1000 Ml Iv Solution (08/24/19 10:53) Lidocaine 2% Viscous 15 Ml (Xylocaine Vi (08/24/19 11:00) Famotidine Tablet (Pepcid Tablet) (08/24/19 10:53) Antacid Suspension (Mylanta Suspension (08/24/19 11:00) Cbc With Automated Diff (08/24/19 10:53) Comprehensive Metabolic Panel (08/24/19 10:53) Lipase (08/24/19 10:57) Crp Fs (08/24/19 11:04) Urine Culture (08/24/19 10:55) Medications Given in ED Current Medications Medications Dose Ordered Sig/Vicky Route Start Time Stop Time Status Last Admin Dose Admin Al Hydrox/Mg Hydrox/Simethicone 30 ml ONCE ONCE PO 08/24/19 11:00 08/24/19 11:01 DC 08/24/19 11:14 30 ML Lactated Ringer's 1,000 ml @ 0 mls/hr Q0M ONCE IV 08/24/19 10:53 08/24/19 10:56 DC 08/24/19 11:14 0 MLS/HR Lidocaine HCl 15 ml ONCE ONCE PO 08/24/19 11:00 08/24/19 11:01 DC 08/24/19 11:14 15 ML Vital Signs/I&O 08/24/19 10:45 Temp 36.2 Pulse 122 Resp 18 B/P (MAP) 102/54 (70) Pulse Ox 100 O2 Delivery Room Air Progress Progress Note #1: Time: 11:02 Progress Note We'll obtain some labs to include a lipase and CRP. We'll get a urinalysis, hCG and drug screen. She has tachycardia 120 825 which could be from hypovolemia secondary to her diarrhea versus other? She is afebrile and otherwise has aseptic vital signs. We'll start with a GI cocktail for pain control. She's having no nausea. Pepcid. This does not improve her pain then we'll trial Toradol. Other possibilities are an infectious colitis, appendicitis, cystitis, less likely ureteral stone. Progress Note #2: Time: 11:37 Progress Note Significant elevation of CRP. No improvement with the GI cocktail. Urinalysis demonstrates UTI. Appendicitis is a possibility however her abdominal exam is less remarkable now. Discussed the options and using a decision supported process were going to take and appropriate, conservative approach towards treat ing the UTI and outpatient reexamination. No significant red blood cells to suggest a kidney stone. Her abdominal exam still fairly benign. We'll give her some Toradol and put her out on Bactrim with follow-up instructions with her primary care doctor as well as return precautions if her symptoms worsen. She is okay with this plan. Departure Impression Primary Impression: Urinary tract infection Qualified Codes: N30.00 - Acute cystitis without hematuria Disposition: HOME, SELF-CARE Condition: Stable Departure-Patient Inst. Decision time for Depature: 11:38 Referrals: NO,LOCAL PHYSICIAN (PCP/Family) Primary Care Physician Patient Instructions: Urinary Tract Infection, Adult (DC) Add. Discharge Instructions: Drink plenty of fluids. You may use ibuprofen 800 mg every 8 hours as needed for pain. Tylenol 1000 mg every 8 hours as needed for pain. You may try things like Gas-X, simethicone. If you're pain worsens despite these medications or you have fever then I encourage you to return to the nearest ER for further evaluation. Expect improvement of symptoms in about 2-3 days on antibiotics. If symptoms persist then you should follow-up with your primary care doctor. Keep your follow-up appointment with your primary care doctor to continue working up your irregular bleeding. Scripts Sulfamethoxazole/Trimethoprim (Bactrim Ds Tablet) 1 Each Tablet 1 EACH PO BID for 7 Days, #14 TAB 0 Refills Prov: NASRNI ROMERO 08/24/19 Work/School Note: Work Release Form Date Seen in the Emergency Department: Aug 24, 2019 Return to Work: Aug 26, 2019 Restrictions: No Restrictions NASRIN ROMERO Aug 24, 2019 10:57
[2019-08-24] MEDS ORDERED: LIDOCAINE 2% VISCOUS 15 ML UDC PO ONE (11:00)
[2019-08-24] MEDS ORDERED: ANTACID SUSP 30 ML UDC (MYLANTA) PO ONE (11:00)
[2019-08-24 11:13] LABS: HEMATOCRIT 31 % (35-52); HEMOGLOBIN 10.2 G/DL (11.5-16.0); MEAN CORPUSCULAR HEMOGLOBIN 28 PG (25-34); MEAN CORPUSCULAR HGB CONC 33 G/DL (32-36); MEAN CORPUSCULAR VOLUME 84 FL (80-99); MEAN PLATELET VOLUME 8.9 FL (7.4-10.4); PLATELET COUNT 384 10^3/uL (130-400); RED CELL DISTRIBUTION WIDTH 12.6 % (10.0-14.5)
[2019-08-24 11:14] LABS: BASOPHILS % (AUTO) 0 % (0-10); EOSINOPHILS % (AUTO) 0 % (0-10); LYMPHOCYTES % (AUTO) 13 % (12-44); MONOCYTES # (AUTO) 0.6 X 10^3 (0.0-1.0); MONOCYTES % (AUTO) 7 % (0-12); NEUTROPHILS # (AUTO) 6.4 X 10^3 (1.8-7.8); NEUTROPHILS % (AUTO) 80 % (42-75)
[2019-08-24 11:17] LABS: AMPHETAMINE SCREEN, URINE POSITIVE (NEGATIVE); METHAMPHETAMINE SCREEN URINE S POSITIVE (NEGATIVE)
[2019-08-24 11:18] LABS: BARBITURATE SCREEN URINE NEGATIVE (NEGATIVE); BENZODIAZEPINES SCREEN URINE NEGATIVE (NEGATIVE); CANNABINOID SCREEN, URINE POSITIVE (NEGATIVE); COCAINE SCREEN URINE NEGATIVE (NEGATIVE); METHADONE STAT NEGATIVE (NEGATIVE); OPIATE SCREEN URINE NEGATIVE (NEGATIVE); OXYCODONE STAT NEGATIVE (NEGATIVE); PROPOXYPHENE STAT NEGATIVE (NEGATIVE); TRICYCLIC ANTIDEPRESSANTS SCRE NEGATIVE (NEGATIVE)
[2019-08-24 11:21] LABS: COLOR,URINE DARK YELLOW
[2019-08-24 11:22] LABS: BACTERIA,URINE LARGE /HPF; BILIRUBIN,URINE NEGATIVE (NEGATIVE); CLARITY,URINE SL CLOUDY; GLUCOSE, URINE (UA) NEGATIVE (NEGATIVE); KETONES,URINE NEGATIVE (NEGATIVE); LEUKOCYTE ESTERASE ,URINE 2+ (NEGATIVE); NITRITE,URINE NEGATIVE (NEGATIVE); PROTEIN,URINE TRACE (NEGATIVE); RBC,URINE 0-2 /HPF
[2019-08-24 11:32] LABS: ALANINE AMINOTRANSFERASE 5 U/L (0-55); ALBUMIN 3.8 GM/DL (3.2-4.5); ALKALINE PHOSPHATASE 72 U/L (40-136); BILIRUBIN,TOTAL 0.7 MG/DL (0.1-1.0); BUN/CREATININE RATIO 9; CALCIUM 9.2 MG/DL (8.5-10.1); CARBON DIOXIDE 28 MMOL/L (21-32); CHLORIDE 98 MMOL/L (98-107); CREATININE SERUM 0.58 MG/DL (0.60-1.30); GFR ESTIMATED > 60; GLUCOSE 94 MG/DL (70-105); LIPASE 18 U/L (8-78); POTASSIUM 3.8 MMOL/L (3.6-5.0); SODIUM 137 MMOL/L (135-145); TOTAL PROTEIN 7.1 GM/DL (6.4-8.2)
[2019-08-24] MEDS ORDERED: SULF1TAB35 PO (11:42)
[2019-08-24] MEDS ORDERED: KETOROLAC 30 MG/ML VIAL IVP ONE (11:45)
[2019-08-24 11:52] VITALS: BP 108/62
== END 2019-08-24 11:52 | disposition home or self-care (01) ==
LOC: EDUNIT# 10:39 → ER FS 10:41
DX: N30.00 Acute cystitis without hematuria (principal); F17.210 Nicotine dependence, cigarettes, uncomplicated; M41.9 Scoliosis, unspecified; J45.909 Unspecified asthma, uncomplicated; Z88.0 Allergy status to penicillin; Z88.1 Allergy status to other antibiotic agents; Z88.8 Allergy status to other drugs, medicaments and biological substances
CPT/HCPCS: 36415; 80053; 80306; 81000; 83690; 84703; 85025; 86141; 87077; 87088; 87186

== ENCOUNTER → 2019-08-26 | Outpatient (CLI) | payer OTHER ==
[~2019-08-26] MED LIST changes: +SULF1TAB35 PO
--- NOTE | 2019-08-26 14:36 | Diagnostic Imaging Report ---
EXAMINATION: CT Abdomen Pelvis without contrast. TECHNIQUE: Multiple contiguous axial images were obtained through the abdomen and pelvis without the use of intravenous contrast. All CT scans use one or more of the following dose optimizing techniques: automated exposure control, MA and/or KvP adjustment based on a patient size and exam type, or iterative reconstruction. HISTORY: Right upper quadrant pain, pelvic pain COMPARISON: None available. FINDINGS: Limited views of the lower thorax are unremarkable. The liver is normal without focal lesion. There is no biliary ductal dilation. Gallbladder is surgically absent. Pancreas is normal. Spleen is normal. Adrenal glands are normal. The kidneys are normal. There is no hydronephrosis. Urinary bladder is normal. There is a fluid collection between the rectum and the uterus measuring 2.4 x 1.5 cm. There is extensive omental fat stranding. The fascial planes in the pelvis are effaced. Stranding extends into both upper quadrants, right greater than left and there is a small amount of fluid about the liver. There is low attenuation within the right ovary, potentially related to cysts or fluid collections. There is also stranding within the mesentery with some enlarged mesenteric lymph nodes. There is no bowel obstruction. No bowel wall thickening. The appendix is normal in caliber (series 2, image 58). No free air is seen. Aorta is normal in caliber without aneurysm. There are no suspicious osseus lesions. IMPRESSION: 1. Fairly extensive inflammatory process centered in the omentum and arising from the pelvis plus spreading into both upper quadrants, right greater than left with some fluid around the liver. There is a small fluid collection between the rectum and the uterus. Taken together, these findings are most suggestive of pelvic inflammatory disease with a possible tubo-ovarian abscess. However, this is difficult to diagnose on CT, particularly without contrast. Ultrasound and physical exam could be used to corroborate these findings. Dictated by: Dictated on workstation # [id number]
== END ==
LOC: RAD FS 13:54
PROVIDERS: ATTEND Family Medicine
DX: R10.2 Pelvic and perineal pain (principal); R93.5 Abnormal findings on diagnostic imaging of other abdominal regions, including retroperitoneum
CPT/HCPCS: 74176

== ENCOUNTER 2020-07-02 06:47 | Emergency (ER) | payer MEDICAID, OTHER ==
[~2020-07-02] VITALS: Ht 175.5 cm; Wt 54.4 kg
[~2020-07-02 06:47] MED LIST changes: -CLIN150C17 PO; +CLIN150C18 PO
[2020-07-02 06:57] VITALS: BP 125/72
[2020-07-02] MEDS ORDERED: IBUP-1780 PO (07:16)
[2020-07-02] MEDS ORDERED: CYCL10TA9 PO (07:16)
--- NOTE | 2020-07-02 07:17 | ED Neck-Back Pain/Injury ---
General Chief Complaint: Head/Cervical Problems Stated Complaint: NECK AND SHOULDER PAIN Nursing Triage Note: pt states right shoulder and neck pain x 3 days, unknown injury, pt thinks she slept on it wrong Nursing Sepsis Screen: No Definite Risk Source of Information: Patient Exam Limitations: No Limitations History of Present Illness Date Seen by Provider: Jul 02, 2020 Time Seen by Provider: 07:00 Initial Comments 25-year-old female presents with a few days of neck, shoulder and upper back pain with some radiation into either extremity. Pain is migratory and intermittent and worse with certain positions and aggravated by sleep. Denies any injury or trauma or previous occurrence of similar discomfort. Denies any numbness weakness. Denies any recent illness, fever chills. Taking nothing for pain. Allergies and Home Medications Allergies Coded Allergies: acetaminophen (Verified Allergy, Mild, NAUSEA, 06/08/18) Penicillins (Verified Allergy, Unknown, RASH, 06/08/18) amoxicillin (Verified Allergy, Unknown, 05/09/17) oxycodone (Verified Allergy, Unknown, NAUSEA, 06/08/18) Home Medications Clindamycin HCl 150 Mg Capsule, 450 MG PO TID Prescribed by: CLARITZA GIORDANO on 02/23/19 1422 Clindamycin HCl 150 Mg Capsule, 450 MG PO Q6H Prescribed by: NASRIN ROMERO on 03/04/19 0053 Cyclobenzaprine HCl 10 Mg Tablet, 10 MG PO Q8H PRN for SPASMS Prescribed by: KATRIN CONTRERAS on 07/02/20 0716 Docusate Sodium 100 Mg Capsule, 100 MG PO BID Prescribed by: MARY GLASER on 06/09/18 1005 Ibuprofen 800 Mg Tablet, 800 MG PO q8 PRN for BACK PAIN Prescribed by: MARY GLASER on 06/09/18 1005 Ibuprofen 800 Mg Tablet, 800 MG PO Q8H PRN for PAIN Prescribed by: CLARITZA GIORDANO on 02/23/19 1422 Ibuprofen 800 Mg Tablet, 800 MG PO Q8H PRN for PAIN Prescribed by: KATRIN CONTRERAS on 07/02/20 0716 Oxycodone HCl/Acetaminophen 1 Each Tablet, 1 EACH PO Q6H PRN for PAIN-MODERATE Prescribed by: MARY GLASER on 06/08/18 0827 Oxycodone HCl/Acetaminophen 1 Each Tablet, 1 TAB PO Q6H PRN for PAIN-MODERATE Prescribed by: MARY GLASER on 06/09/18 1005 Pnv No.118/Iron Fumarate/FA 1 Each Tab.chew, 2 EACH PO DAILY, (Reported) Sulfamethoxazole/Trimethoprim 1 Each Tablet, 1 EACH PO BID Prescribed by: NASRIN ROMERO on 08/24/19 1142 [lortab elixir] , 10 ML PO TID Prescribed by: CLARITZA GIORDANO on 02/23/19 142 [viscous lidocaine] , BC TIDAC PRN for throat pain Prescribed by: CLARITZA GIORDANO on 02/23/19 142 Patient Home Medication List Home Medication List Reviewed: Yes Review of Systems Constitutional: No dizziness, No fever, No malaise, No weakness EENTM: no symptoms reported Respiratory: no symptoms reported Cardiovascular: no symptoms reported Gastrointestinal: no symptoms reported Musculoskeletal: see HPI, back pain; No joint pain; muscle pain, muscle stiffness, muscle cramps; No muscle twitching, No muscle weakness; neck pain (and shoulder) Psychiatric/Neurological: Denies Headache, Denies Numbness, Denies Paresthesia, Denies Weakness Past Dfroqfp-Ewlyig-Swyjsv Hx Patient Social History Alcohol Use: Denies Use Number of Drinks Today: AA Alcohol Beverage of Choice: Beer Drug of Choice: marijuana Smoking Status: Current Everyday Smoker Type Used: Cigarettes 2nd Hand Smoke Exposure: No Recent Infectious Disease Expo: No Recent Hopitalizations: No Immunizations Up To Date Tetanus Booster (TDap): Unknown Seasonal Allergies Seasonal Allergies: No Past Medical History Surgeries: Yes (EAR CYST REMOVAL, Bartholean cyst removal) Gallbladder Respiratory: Yes Asthma Currently Using CPAP: No Currently Using BIPAP: No Cardiac: No Neurological: No Genitourinary: No Gastrointestinal: No Musculoskeletal: Yes Scoliosis Endocrine: No HEENT: No Cancer: No Psychosocial: Yes (suicidal thoughts) Integumentary: No Blood Disorders: No Family Medical History Blood clots 19 MOTHER Scoliosis G8 BROTHER No Pertinent Family Hx Physical Exam Vital Signs Vital Signs - First Documented 07/02/20 06:57 Temp 37.0 Pulse 103 Resp 15 B/P (MAP) 125/72 (89) Pulse Ox 99 O2 Delivery Room Air Capillary Refill : Less Than 3 Seconds Height, Weight, BMI Height: 5'2.00" Weight: 182lbs. 8.0oz. 82.858403dq; 17.00 BMI Method:Stated General Appearance: No Apparent Distress, WD/WN HEENT: PERRL/EOMI, Normal ENT Inspection Neck: Full Range of Motion, Normal Inspection, Supple, Tender Lateral (b/l paraspinal ms, mild tenderness without focal area of pain) Back: Normal Inspection, No CVA Tenderness, No Vertebral Tenderness; No Decreased Range of Motion; Muscle Spasm (b/l upper trapez ms) Extremity: Normal Capillary Refill, Normal Inspection, Normal Range of Motion, Non Tender Neurologic/Psychiatric: Alert, Oriented x3, No Motor/Sensory Deficits Skin: Normal Color, Warm/Dry Progress/Results/Core Measures Results/Orders Vital Signs/I&O 07/02/20 06:57 Temp 37.0 Pulse 103 Resp 15 B/P (MAP) 125/72 (89) Pulse Ox 99 O2 Delivery Room Air Blood Pressure Mean: 89 Departure Impression Primary Impression: Muscle strain Disposition: 01 HOME, SELF-CARE Condition: Stable Departure-Patient Inst. Decision time for Depature: 07:15 Referrals: [facility] (PCP/Family) Primary Care Physician Patient Instructions: Cervical Muscle Strain (DC) Scripts Ibuprofen (Ibuprofen) 800 Mg Tablet 800 MG PO Q8H PRN for PAIN, #30 TAB 0 Refills Prov: KATRIN CONTRERAS DO 07/02/20 Cyclobenzaprine HCl (Cyclobenzaprine HCl) 10 Mg Tablet 10 MG PO Q8H PRN for SPASMS, #15 TAB 0 Refills Prov: KATRIN CONTRERAS DO 07/02/20 KATRIN CONTRERAS DO Jul 02, 2020 07:17
== END 2020-07-02 07:22 | disposition home or self-care (01) ==
LOC: EDUNIT# 06:47 → ER FS 06:49
DX: S46.811A Strain of other muscles, fascia and tendons at shoulder and upper arm level, right arm, initial encounter (principal); S46.812A Strain of other muscles, fascia and tendons at shoulder and upper arm level, left arm, initial encounter; F17.210 Nicotine dependence, cigarettes, uncomplicated; Z88.0 Allergy status to penicillin; Z88.1 Allergy status to other antibiotic agents; Z88.5 Allergy status to narcotic agent; Z88.6 Allergy status to analgesic agent; X58.XXXA Exposure to other specified factors, initial encounter
CPT/HCPCS: 99282

== ENCOUNTER → 2020-07-06 | Outpatient (CLI) | payer MEDICAID ==
[~2020-07-06] MED LIST changes: +CYCL10TA9 PO
--- NOTE | 2020-07-06 15:41 | Diagnostic Imaging Report ---
INDICATION: Neck pain and bilateral arm numbness. TIME OF EXAM: 12:05 PM Multiple views cervical spine were obtained. Curvature and alignment of the cervical spine are normal. Vertebral body heights and disc spaces are well-maintained. Prevertebral tissues are normal. No fractures are seen. Odontoid is obscured on the odontoid views from overlying teeth. IMPRESSION: No acute bony abnormality is detected. Dictated by: Dictated on workstation # [id number]
== END ==
LOC: RAD FS 12:00
PROVIDERS: ATTEND Nurse Practitioner Family
DX: M54.2 Cervicalgia (principal); M25.511 Pain in right shoulder; M25.512 Pain in left shoulder
CPT/HCPCS: 72040

== ENCOUNTER 2020-10-30 18:41 | Emergency (ER) | payer MEDICAID ==
[2020-10-30 18:57] LABS: BACTERIA,URINE MODERATE /HPF; BILIRUBIN,URINE NEGATIVE (NEGATIVE); CLARITY,URINE CLOUDY; COLOR,URINE YELLOW; GLUCOSE, URINE (UA) NEGATIVE (NEGATIVE); KETONES,URINE NEGATIVE (NEGATIVE); LEUKOCYTE ESTERASE ,URINE 3+ (NEGATIVE); NITRITE,URINE NEGATIVE (NEGATIVE); PH,URINE 8.5 (5-9); PROTEIN,URINE 1+ (NEGATIVE); WBC,URINE >100 /HPF
[2020-10-30] MEDS ORDERED: KETOROLAC 60 MG/2 ML VIAL IM ONE (19:15)
[2020-10-30] MEDS ORDERED: ORPHENADRINE 60 MG/2 ML (NORFLEX) AMP (ED ONLY) IM ONE (19:15)
[2020-10-30] MEDS ORDERED: SULF1TAB35 PO (19:35)
--- NOTE | 2020-10-30 19:35 | ED Abdominal Pain ---
General Chief Complaint: Abdominal/GI Problems Stated Complaint: PELVIC PAIN,MIGRAINE Nursing Triage Note: Pt complaining of lower abd pain that started this morning as well as a migraine Sepsis Screen: No Definite Risk Source of Information: Patient Exam Limitations: No Limitations History of Present Illness Date Seen by Provider: Oct 30, 2020 Time Seen by Provider: 19:15 Initial Comments Patient is a 25-year-old female who presents to the emergency department today with a chief complaint of lower abdominal pain that started this morning after she finished her menstrual cycle. Patient describes the pain as "pressure". She denies dysuria, urgency or frequency. No abnormal vaginal discharge. Patient states that she is not sexually active and has no concern for STI. She also concomitantly complains of a bandlike headache that she has taken some ibuprofen for with no relief of symptoms. She denies any visual changes. She denies numbness, weakness or tingling. She denies any problems with balance or coordination. She has had similar headaches in the past All other review of systems reviewed and negative except as stated above. Timing/Duration: 24 Hours Severity/Quality: Moderate Location: Suprapubic Associated Symptoms: Headache Allergies and Home Medications Allergies Coded Allergies: acetaminophen (Verified Allergy, Mild, NAUSEA, 06/08/18) Penicillins (Verified Allergy, Unknown, RASH, 06/08/18) amoxicillin (Verified Allergy, Unknown, 05/09/17) oxycodone (Verified Allergy, Unknown, NAUSEA, 06/08/18) Home Medications Clindamycin HCl 150 Mg Capsule, 450 MG PO TID Prescribed by: CLARITZA GIORDANO on 02/23/19 1422 Clindamycin HCl 150 Mg Capsule, 450 MG PO Q6H Prescribed by: NASRIN ROMERO on 03/04/19 0053 Cyclobenzaprine HCl 10 Mg Tablet, 10 MG PO Q8H PRN for SPASMS Prescribed by: KATRIN CONTRERAS on 07/02/20 0716 Docusate Sodium 100 Mg Capsule, 100 MG PO BID Prescribed by: MARY GLASER on 06/09/18 1005 Ibuprofen 800 Mg Tablet, 800 MG PO q8 PRN for BACK PAIN Prescribed by: MARY GLASER on 06/09/18 1005 Ibuprofen 800 Mg Tablet, 800 MG PO Q8H PRN for PAIN Prescribed by: CLARITZA GIORDANO on 02/23/19 1422 Ibuprofen 800 Mg Tablet, 800 MG PO Q8H PRN for PAIN Prescribed by: KATRIN Kessler ROVENSTINE on 07/02/20 0716 Oxycodone HCl/Acetaminophen 1 Each Tablet, 1 EACH PO Q6H PRN for PAIN-MODERATE Prescribed by: MARY GLASER on 06/08/18 0827 Oxycodone HCl/Acetaminophen 1 Each Tablet, 1 TAB PO Q6H PRN for PAIN-MODERATE Prescribed by: MARY GLASER on 06/09/18 1005 Pnv No.118/Iron Fumarate/FA 1 Each Tab.chew, 2 EACH PO DAILY, (Reported) Sulfamethoxazole/Trimethoprim 1 Each Tablet, 1 EACH PO BID Prescribed by: NASRIN ROMERO on 08/24/19 1142 [lortab elixir] , 10 ML PO TID Prescribed by: CLARITZA GIORDANO on 02/23/19 142 [viscous lidocaine] , BC TIDAC PRN for throat pain Prescribed by: CLARITZA GIORDANO on 02/23/19 142 Patient Home Medication List Home Medication List Reviewed: Yes Review of Systems Review of Systems Constitutional: see HPI EENTM: No Symptoms Reported Respiratory: No Symptoms Reported Cardiovascular: No Symptoms Reported Gastrointestinal: Abdominal Pain Genitourinary: Denies Burning; Discharge; Denies Drainage, Denies Frequency, Denies Hematuria Skin: no symptoms reported Psychiatric/Neurological: Headache All Other Systems Reviewed Negative Unless Noted: Yes Past Prldean-Nrcbvq-Xbhmtz Hx Patient Social History Alcohol Use: Rarely Uses Number of Drinks Today: AA Alcohol Beverage of Choice: Beer Drug of Choice: marijuana Smoking Status: Current Everyday Smoker Type Used: Electronic/Vapor 2nd Hand Smoke Exposure: No Recent Infectious Disease Expo: No Recent Hopitalizations: No Immunizations Up To Date Tetanus Booster (TDap): Unknown Seasonal Allergies Seasonal Allergies: No Past Medical History Surgeries: Yes (EAR CYST REMOVAL, Bartholean cyst removal) Gallbladder Respiratory: Yes Asthma Currently Using CPAP: No Currently Using BIPAP: No Cardiac: No Neurological: No Genitourinary: No Gastrointestinal: No Musculoskeletal: Yes Scoliosis Endocrine: No HEENT: No Cancer: No Psychosocial: Yes (suicidal thoughts) Integumentary: No Blood Disorders: No Family Medical History Blood clots 19 MOTHER Scoliosis G8 BROTHER No Pertinent Family Hx Physical Exam Vital Signs Vital Signs - First Documented 10/30/20 18:44 Temp 37.3 Pulse 110 Resp 18 B/P (MAP) 118/67 (84) Pulse Ox 98 O2 Delivery Room Air Capillary Refill : Less Than 3 Seconds Height/Weight/BMI Height: 5'2.00" Weight: 182lbs. 8.0oz. 82.833296xt; 17.00 BMI Method:Stated General Appearance: WD/WN, no apparent distress Neck: normal inspection Respiratory: lungs clear, normal breath sounds, no respiratory distress Cardiovascular: regular rate, rhythm Gastrointestinal: soft, tenderness (Mild suprapubic abdominal discomfort) Extremities: normal range of motion, non-tender, normal inspection, no pedal edema Neurologic/Psychiatric: alert, normal mood/affect, oriented x 3 Skin: normal color, warm/dry Progress/Results/Core Measures Results/Orders Lab Results Laboratory Tests Test 10/30/20 18:47 Range/Units Urine Color YELLOW Urine Clarity CLOUDY Urine pH 8.5 5-9 Urine Specific [place] 1.015 L 1.016-1.022 Urine Protein 1+ H NEGATIVE Urine Glucose (UA) NEGATIVE NEGATIVE Urine Ketones NEGATIVE NEGATIVE Urine Nitrite NEGATIVE NEGATIVE Urine Bilirubin NEGATIVE NEGATIVE Urine Urobilinogen 0.2 < = 1.0 MG/DL Urine Leukocyte Esterase 3+ H NEGATIVE Urine RBC (Auto) NEGATIVE NEGATIVE Urine RBC 5-10 H /HPF Urine WBC >100 H /HPF Urine Squamous Epithelial Cells 5-10 /HPF Urine Crystals NONE /LPF Urine Bacteria MODERATE H /HPF Urine Casts NONE /LPF Urine Mucus LARGE H /LPF Urine Culture Indicated YES Urine Test NEGATIVE NEGATIVE My Orders Orders - JULIOCESAR ALCALA MD Ketorolac Injection (Toradol Injection) (10/30/20 19:15) Orphenadrine Inj (Ed Only) (Norflex Inje (10/30/20 19:15) Medications Given in ED Current Medications Medications Dose Ordered Sig/Vicky Route Start Time Stop Time Status Last Admin Dose Admin Ketorolac Tromethamine 60 mg ONCE ONCE IM 10/30/20 19:15 10/30/20 19:16 DC 10/30/20 19:28 60 MG Orphenadrine Citrate 60 mg ONCE ONCE IM 10/30/20 19:15 10/30/20 19:16 DC 10/30/20 19:28 60 MG Vital Signs/I&O 10/30/20 18:44 Temp 37.3 Pulse 110 Resp 18 B/P (MAP) 118/67 (84) Pulse Ox 98 O2 Delivery Room Air Blood Pressure Mean: 84 Progress Progress Note : Time: 19:32 Progress Note Patient seen and examined, 25-year-old with headache and suprapubic abdominal pressure. Patient has evidence of urinary tract infection on urinalysis. She is treated for her headache with Toradol and Norflex. Patient is advised to take ghei-uwp-lxvarci Aleve starting tomorrow with food as needed for discomfort. She is also advised to take Azo for the suprapubic abdominal pressure and discomfort. She will be placed on Bactrim DS 1 twice daily for 5 days. She is given good return precautions. She verbalized understanding. All questions are sought and answered. Patient is stable for discharge. Departure Impression Primary Impression: Urinary tract infection Qualified Codes: N30.01 - Acute cystitis with hematuria Additional Impression: Headache Qualified Codes: G44.209 - Tension-type headache, unspecified, not intractable Disposition: HOME, SELF-CARE Condition: Stable Departure-Patient Inst. Decision time for Depature: 19:34 Referrals: SHEEBA EARLY APRN (PCP) Primary Care Physician [facility]/ (Family) Primary Care Physician Patient Instructions: Headache, Adult, Urinary Tract Infection, Adult (DC) Add. Discharge Instructions: Drink lots of fluids to stay well-hydrated. Take the antibiotics twice daily for 5 days for urinary tract infection. You can take lckq-bcb-gdxrerc Aleve or the generic equivalent 2 pills twice daily with food as needed for headache. Follow-up with your primary care physician. Return to the emergency room for any worsening symptoms, new emergent concerns. Scripts Sulfamethoxazole/Trimethoprim (Bactrim Ds Tablet) 1 Each Tablet 1 EACH PO BID for 5 Days, #10 TAB Prov: JULIOCESAR ALCALA MD 10/30/20 JULIOCESAR ALCALA MD Oct 30, 2020 19:35
[2020-10-30 19:37] VITALS: BP 118/67
== END 2020-10-30 19:38 | disposition home or self-care (01) ==
LOC: EDUNIT# 18:41 → ER FS 18:42
DX: N39.0 Urinary tract infection, site not specified (principal); R51.9 Headache, unspecified; J45.909 Unspecified asthma, uncomplicated; F17.290 Nicotine dependence, other tobacco product, uncomplicated; Z88.5 Allergy status to narcotic agent
CPT/HCPCS: 81000; 84703; 87088; 99284

== ENCOUNTER 2021-04-20 11:28 | Emergency (ER) | payer MEDICAID ==
[~2021-04-20] VITALS: Ht 157 cm; Wt 63.0 kg
[~2021-04-20 11:28] MED LIST changes: -CLIN150C18 PO; +CLIN150C20 PO; +CYCL10TA25 PO; -CYCL10TA9 PO; -SULF1TAB35 PO; +SULF1TAB38 PO
--- OUTSIDE RECORDS SUMMARY | 2021-04-20 11:34 | XMS REPORT | Clinical Summary ---
Author Author [facility] Organization [facility] Address Unknown Phone Unavailable Care Team Providers Care Patient Accounts Specialist Name Role Phone Abdi Cornell RN Unavailable Unavailable Stanley Boateng Scott Bonnie PCP Unavailable Michael Salmeron DO Unavailable Claude Arriola RN Unavailable Unavailable Jillian Virgen MD Unavailable Source Comments Some departments are not documenting in the electronic medical record. If you d o not see the information that you expected, contact Release of Information in [facility] [employer] Information Management department at [phone] for further assistan ce in locating additional records.[facility] Allergies No known active allergies Medications End Date Status Medication Sig Dispensed Refills Start Date Active ALBUTEROL IN Inhale by 0 mouth. Patient states takes medication every other day prn Active gabapentin (NEURONTIN) Start 1 cap 90 Cap 5 300 mg capsule nightly and 4 increase after 1 week to 1 cap AM and 1 cap PM. After another week increase to three times daily. Active Problems Not on file Surgical History Surgery Date Site/Laterality Comments GALLBLADDER SURGERY 2013 Medical History Medical History Date Comments Asthma Arthritis 2012 back Chest pain Generalized headaches Family History Medical History Relation Name Comments Asthma Father Diabetes Father Heart defect Father Diabetes Maternal Grandfather Heart defect Maternal Grandmother Migraines Maternal Grandmother Migraines Mother Seizures Mother Unknown to Patient Paternal Grandfather Asthma Paternal Grandmother Relation Name Status Comments Father Alive Maternal Grandfather Alive Maternal Grandmother Alive Mother Alive Paternal Grandfather Paternal Grandmother Social History Date Tobacco Use Types Packs/Day Years Used Quit: 01/17/2013 Former Smoker Smokeless Tobacco: Never Used Comments Alcohol Use Standard Drinks/Week 1 time a month Yes 0 (1 standard drink = 0.6 o z pure alcohol) Alcohol Habits Answer Date Recorded How often do you have a drink containing alcohol? No t asked How many drinks containing alcohol do you have on No t asked a typical day when you are drinking? How often do you have six or more drinks on one Not asked occasion? Comment: 1 time a month 02/17/2014 Sex Assigned at Date Recorded Not on file Last Filed Vital Signs Reading Time Taken Comments Vital Sign 115/68 04/30/2014 2:13 PM CUSTOMS INVESTIGATOR Blood Pressure 87 04/30/2014 2:13 PM CUSTOMS INVESTIGATOR Pulse 36.5 C (97.7 F) 03/27/2014 8:45 AM CUSTOMS INVESTIGATOR Temperature - - Respiratory Rate 99% 03/27/2014 10:15 AM CUSTOMS INVESTIGATOR Oxygen Saturation - - Inhaled Oxygen Concentration 65.8 kg (145 lb) 03/27/2014 8:45 AM CUSTOMS INVESTIGATOR Weight 157.5 cm (5' 2") 03/27/2014 8:45 AM CUSTOMS INVESTIGATOR Height 26.52 03/27/2014 8:45 AM CUSTOMS INVESTIGATOR Body Mass Index Plan of Treatment Health Maintenance Due Date Last Done Comments HPV VACCINES (1 - 2-dose 2006 series) DTAP/TDAP VACCINES (1 - 2013 Tdap) HEPATITIS C SCREENING 2013 PHYSICAL (COMPREHENSIVE) 2013 EXAM CERVICAL CANCER SCREENING 2016 INFLUENZA VACCINE 12/13/2020 HIV SCREENING Completed 02/17/2014 Results Not on filefrom Last 3 Months Advance Directives 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
[2021-04-20] MEDS: ONDANSETRON 4 MG (ZOFRAN) ORAL DISSOLVE TAB PO STA (11:46)
[2021-04-20] MEDS: IBUPROFEN 600 MG (MOTRIN) TAB PO SCH (11:46)
--- NOTE | 2021-04-20 11:59 | ED General ---
General Chief Complaint: General Problems/Pain Stated Complaint: HEADACHE, SEIZURE, VOMITING Nursing Triage Note: REPORTS SHE HAD A STRESS INDUCED SEIZURE THIS AM AND EVER SINCE THEN SHE HAS HAD A HEADACHE AND VOMITED. SHE TOOK ALEVE AT 0800. Source of Information: Patient History of Present Illness Date Seen by Provider: Apr 20, 2021 Time Seen by Provider: 11:20 Initial Comments Patient is a 26-year-old female with history of pseudoseizures migraine headach es who presents with a pseudoseizure lasting 2 minutes without postictal period. Then the episode was witnessed by her significant other. She states she has had a mild persistent migraine-like headache with nausea and vomiting. This is not the worst headache of the patient's life. No other acute symptoms or complaints Timing/Duration: 1-3 Hours Severity: Mild Modifying Factors: improves with Other Associated Systoms: Other Allergies and Home Medications Allergies Coded Allergies: acetaminophen (Verified Allergy, Mild, NAUSEA, 06/08/18) Penicillins (Verified Allergy, Unknown, RASH, 06/08/18) amoxicillin (Verified Allergy, Unknown, 05/09/17) oxycodone (Verified Allergy, Unknown, NAUSEA, 06/08/18) Patient Home Medication List Home Medication List Reviewed: Yes Clindamycin HCl (Clindamycin HCl) 150 Mg Capsule, 450 MG PO TID Prescribed by: CLARITZA GIORDANO on 02/23/19 142 Clindamycin HCl (Clindamycin HCl) 150 Mg Capsule, 450 MG PO Q6H Prescribed by: NASRIN ROMERO on 03/04/19 0053 Cyclobenzaprine HCl (Cyclobenzaprine HCl) 10 Mg Tablet, 10 MG PO Q8H PRN for SPASMS Prescribed by: KATRIN CONTRERAS on 07/02/20 0716 Docusate Sodium (Docusate Sodium) 100 Mg Capsule, 100 MG PO BID Prescribed by: MARY GLASER on 06/09/18 1005 Ibuprofen (Ibuprofen) 800 Mg Tablet, 800 MG PO q8 PRN for BACK PAIN Prescribed by: MARY GLASER on 06/09/18 1005 Ibuprofen (Ibuprofen) 800 Mg Tablet, 800 MG PO Q8H PRN for PAIN Prescribed by: CLARITZA GIORDANO on 02/23/19 1422 Ibuprofen (Ibuprofen) 800 Mg Tablet, 800 MG PO Q8H PRN for PAIN Prescribed by: KATRIN CONTRERAS on 07/02/20 0716 Oxycodone HCl/Acetaminophen (Percocet 5-325 mg Tablet) 1 Each Tablet, 1 EACH PO Q6H PRN for PAIN-MODERATE Prescribed by: MARY GLASER on 06/08/18 0827 Oxycodone HCl/Acetaminophen (Percocet 5-325 mg Tablet) 1 Each Tablet, 1 TAB PO Q6H PRN for PAIN-MODERATE Prescribed by: MARY GLASER on 06/09/18 1005 Pnv No.118/Iron Fumarate/FA ( 19 Chewable Tablet) 1 Each Tab.chew, 2 EACH PO DAILY, (Reported) Entered as Reported by: MELLO HIAR on 06/04/18 1318 Sulfamethoxazole/Trimethoprim (Bactrim Ds Tablet) 1 Each Tablet, 1 EACH PO BID Prescribed by: NASRIN ROMERO on 08/24/19 1142 Sulfamethoxazole/Trimethoprim (Bactrim Ds Tablet) 1 Each Tablet, 1 EACH PO BID Prescribed by: JULIOCESAR ALCALA on 10/30/20 1935 [lortab elixir] , 10 ML PO TID Prescribed by: CLARITZA GIORDANO on 02/23/19 142 [viscous lidocaine] , BC TIDAC PRN for throat pain Prescribed by: CLARITZA GIORDANO on 02/23/19 142 Review of Systems Review of Systems Constitutional: see HPI EENTM: see HPI Respiratory: see HPI Cardiovascular: see HPI Gastrointestinal: see HPI Genitourinary: see HPI Musculoskeletal: see HPI Skin: see HPI Psychiatric/Neurological: See HPI Hematologic/Lymphatic: See HPI Immunological/Allergic: see HPI All Other Systems Reviewed Negative Unless Noted: Yes Past Xidpldq-Oepnrs-Mqufrj Hx Patient Social History Tobacco Use?: Yes Use of E-Cig and/or Vaping dev: Yes E-Cig or Vaping type used: Nicotine Substance use?: Yes Substance type: Marijuana Alcohol Use?: No Pt feels they are or have been: No Immunizations Up To Date Tetanus Booster (TDap): Unknown Seasonal Allergies Seasonal Allergies: No Past Medical History Surgeries: Yes (EAR CYST REMOVAL, Bartholean cyst removal) Gallbladder Respiratory: Yes Asthma Currently Using CPAP: No Currently Using BIPAP: No Cardiac: No Neurological: No Genitourinary: No Gastrointestinal: No Musculoskeletal: Yes Scoliosis Endocrine: No HEENT: No Cancer: No Psychosocial: Yes (suicidal thoughts) Integumentary: No Blood Disorders: No Family Medical History Blood clots 19 MOTHER Scoliosis G8 BROTHER No Pertinent Family Hx Physical Exam Vital Signs Vital Signs - First Documented 04/20/21 11:37 Temp 35.8 Pulse 88 Resp 18 B/P (MAP) 115/70 (85) Pulse Ox 99 O2 Delivery Room Air Capillary Refill : Less Than 3 Seconds Height, Weight, BMI Height: 5'2.00" Weight: 182lbs. 8.0oz. 82.976042tk; 25.00 BMI Method:Stated General Appearance: No Apparent Distress, WD/WN Eyes: Bilateral Eye Normal Inspection, Bilateral Eye PERRL, Bilateral Eye EOMI HEENT: PERRL/EOMI, Normal ENT Inspection, Pharynx Normal Neck: Full Range of Motion, Non Tender, Supple Respiratory: Chest Non Tender, Lungs Clear Cardiovascular: Regular Rate, Rhythm Neurologic/Psychiatric: Alert, Oriented x3 Focused Exam Sepsis Stage: Ruled Out Progress/Results/Core Measures Suspected Sepsis SIRS Temperature: Pulse: 88 Respiratory Rate: 18 Blood Pressure 115 /70 Mean: 85 Results/Orders My Orders Orders - AMITA COLÓN DO Ondansetron Oral Dissolve Tab (Zofran (04/20/21 11:39) Ibuprofen Tablet (Motrin Tablet) (04/20/21 12:00) Vital Signs/I&O 04/20/21 11:37 Temp 35.8 Pulse 88 Resp 18 B/P (MAP) 115/70 (85) Pulse Ox 99 O2 Delivery Room Air Capillary Refill : Less Than 3 Seconds Blood Pressure Mean: 85 Departure Communication (Admissions) Longstanding history of pseudoseizures with typical migraine headache. No atypical features or neurologic deficits on exam. Medication given in the ED. Recommendations are for continued supportive care as needed. Impression Primary Impression: Migraine headache Disposition: HOME, SELF-CARE Condition: Stable Departure-Patient Inst. Decision time for Depature: 11:59 Referrals: SHEEBA EARLY APRN (PCP) Primary Care Physician [facility] (Family) Primary Care Physician Patient Instructions: Migraines in Adults Add. Discharge Instructions: Please take ibuprofen if headache persist. All discharge instructions reviewed with patient and/or family. Voiced understanding. AMITA COLÓN DO Apr 20, 2021 11:59
[2021-04-20 12:03] VITALS: BP 115/70
== END 2021-04-20 12:03 | disposition home or self-care (01) ==
LOC: EDUNIT# 11:28 → ER FS 11:30
DX: G43.909 Migraine, unspecified, not intractable, without status migrainosus (principal); J45.909 Unspecified asthma, uncomplicated; Z72.0 Tobacco use
CPT/HCPCS: 99283

== ENCOUNTER 2021-05-07 | Emergency (ER) | payer MEDICAID ==
[~2021-05-07] VITALS: Ht 157 cm; Wt 63.5 kg
--- NOTE | 2021-05-07 00:18 | ED Neurological Problem ---
General Chief Complaint: Neurological Problems Stated Complaint: SEIZURE Source: patient, EMS Exam Limitations: no limitations History of Present Illness Date Seen by Provider: May 07, 2021 Time Seen by Provider: 00:00 Initial Comments 26-year-old female with past medical history of psychogenic nonepileptic seizures coming in after a seizure-like episode. She says she only has these episodes when she is stressed out. Tonight she was told by her fianc that he cheated on her a week ago and he no longer loves her. She says this did in fact stress around so she had an event. She says typically when these occur, she can still hear people around her, and she sometimes shakes a little bit, and sometimes shakes a lot. She only takes medications for anxiety, depression, and help her sleep. She does not take any medications for seizures themselves. She says she is had an EEG before and she did not have any real seizure-like activity in her brain during the episodes. EMS reports she was not postictal and vitals were normal. She denies falling or hitting her head. She is currently on her period. Allergies and Home Medications Allergies Coded Allergies: acetaminophen (Verified Allergy, Mild, NAUSEA, 06/08/18) Penicillins (Verified Allergy, Unknown, RASH, 06/08/18) amoxicillin (Verified Allergy, Unknown, 05/09/17) oxycodone (Verified Allergy, Unknown, NAUSEA, 06/08/18) Patient Home Medication List Home Medication List Reviewed: Yes Clindamycin HCl (Clindamycin HCl) 150 Mg Capsule, 450 MG PO TID Prescribed by: CLARITZA GIORDANO on 02/23/19 1422 Clindamycin HCl (Clindamycin HCl) 150 Mg Capsule, 450 MG PO Q6H Prescribed by: NASRIN ROMERO on 03/04/19 0053 Cyclobenzaprine HCl (Cyclobenzaprine HCl) 10 Mg Tablet, 10 MG PO Q8H PRN for SPASMS Prescribed by: KATRIN CONTRERAS on 07/02/20 0716 Docusate Sodium (Docusate Sodium) 100 Mg Capsule, 100 MG PO BID Prescribed by: MARY GLASER on 06/09/18 1005 Ibuprofen (Ibuprofen) 800 Mg Tablet, 800 MG PO q8 PRN for BACK PAIN Prescribed by: MARY GLASER on 06/09/18 1005 Ibuprofen (Ibuprofen) 800 Mg Tablet, 800 MG PO Q8H PRN for PAIN Prescribed by: CLARITZA GIORDANO on 02/23/19 142 Ibuprofen (Ibuprofen) 800 Mg Tablet, 800 MG PO Q8H PRN for PAIN Prescribed by: KATRIN CONTRERAS on 07/02/20 0716 Oxycodone HCl/Acetaminophen (Percocet 5-325 mg Tablet) 1 Each Tablet, 1 EACH PO Q6H PRN for PAIN-MODERATE Prescribed by: MARY GLASER on 06/08/18 0827 Oxycodone HCl/Acetaminophen (Percocet 5-325 mg Tablet) 1 Each Tablet, 1 TAB PO Q6H PRN for PAIN-MODERATE Prescribed by: MARY GLASER on 06/09/18 1005 Pnv No.118/Iron Fumarate/FA ( 19 Chewable Tablet) 1 Each Tab.chew, 2 EACH PO DAILY, (Reported) Entered as Reported by: MELLO HAIR on 06/04/18 1318 Sulfamethoxazole/Trimethoprim (Bactrim Ds Tablet) 1 Each Tablet, 1 EACH PO BID Prescribed by: NASRIN ROMERO on 08/24/19 1142 Sulfamethoxazole/Trimethoprim (Bactrim Ds Tablet) 1 Each Tablet, 1 EACH PO BID Prescribed by: JULIOCESAR ALCALA on 10/30/20 1935 [lortab elixir] , 10 ML PO TID Prescribed by: CLARITZA GIORDANO on 02/23/19 142 [viscous lidocaine] , BC TIDAC PRN for throat pain Prescribed by: CLARITZA GIORDANO on 02/23/191421 Review of Systems Review of Systems Constitutional: No chills, No fever Eyes: Denies Blurred Vision Ears, Nose, Mouth, Throat: no symptoms reported Respiratory: no symptoms reported Cardiovascular: no symptoms reported Gastrointestinal: no symptoms reported Genitourinary: no symptoms reported Musculoskeletal: no symptoms reported Skin: no symptoms reported Psychiatric/Neurological: Anxiety, Depressed Endocrine: No Symptoms Reported Hematologic/Lymphatic: No Symptoms Reported All Other Systems Reviewed Negative Unless Noted: Yes Past Cboqolj-Glhlxs-Httnex Hx Patient Social History Substance use?: Yes Substance type: Marijuana Immunizations Up To Date Tetanus Booster (TDap): Unknown Seasonal Allergies Seasonal Allergies: No Past Medical History Surgeries: Yes (EAR CYST REMOVAL, Bartholean cyst removal) Gallbladder Respiratory: Yes Asthma Currently Using CPAP: No Currently Using BIPAP: No Cardiac: No Neurological: No Genitourinary: No Gastrointestinal: No Musculoskeletal: Yes Scoliosis Endocrine: No HEENT: No Cancer: No Psychosocial: Yes (suicidal thoughts) Integumentary: No Blood Disorders: No Family Medical History Blood clots 19 MOTHER Scoliosis G8 BROTHER No Pertinent Family Hx Physical Exam Vital Signs Capillary Refill : Height, Weight, BMI Height: 5'2.00" Weight: 182lbs. 8.0oz. 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 ABCs were intact and vitals were stable on presentation. Physical exam reassuring with no focal abnormalities including no signs of trauma. She is completely alert and oriented and is not postictal. Glucose is 95. Vitals are reassuring. Comprehensive neuro exam is normal. She is ambulating, using the restroom, and tolerating p.o. without difficulty. I believe she is stable for discharge with outpatient follow-up. She was sent home with strict return precautions. Departure Impression Primary Impression: Psychogenic nonepileptic seizure Disposition: HOME, SELF-CARE Condition: Stable Departure-Patient Inst. Decision time for Depature: 00:15 Referrals: SHEEBA EARLY APRN (PCP) Primary Care Physician [facility] (Family) Primary Care Physician Patient Instructions: Conversion Disorder Add. Discharge Instructions: You were seen in the emergency department for seizure-like episodes. The specific episodes are more related to stress, and are not dangerous for the brai n or body. Just be sure to be in a safe area if you feel 1 of these coming on, and lay down on the ground so that you do not fall. Please call your regular doctor if you feel that you need changes in your medications. Work/School Note: Work Release Form Date Seen in the Emergency Department: May 07, 2021 Return to Work: May 09, 2021 Restrictions: No Restrictions ASHLY VANESSA MD May 07, 2021 00:18
[2021-05-07 00:24] VITALS: BP 137/71
== END 2021-05-07 00:24 | disposition home or self-care (01) ==
LOC: EDUNIT# → ER FS 00:02
DX: R56.9 Unspecified convulsions (principal); J45.909 Unspecified asthma, uncomplicated
CPT/HCPCS: 82947; 99283

== ENCOUNTER 2021-09-28 14:34 | Emergency (ER) | payer MEDICAID ==
[~2021-09-28] VITALS: Ht 157 cm; Wt 56.0 kg
--- NOTE | 2021-09-28 15:00 | ED Headache ---
General Chief Complaint: Head/Cervical Problems Stated Complaint: SEIZURE; HEADACHE Nursing Triage Note: PT REPROTS SHE HAD A "SEIZURE" AROUND 1130 AND STILL HAS A HEADACHE FROM IT. Source: patient History of Present Illness Date Seen by Provider: September 28, 2021 Time Seen by Provider: 14:36 Initial Comments 26-year-old female presenting with complaints of seizure at home around 1130 this morning and having a headache since then. She does have a history of migr papi headaches as well as having stress related nonepileptic seizures. She denies any other injuries. She has no obvious trauma to her head. She has had no drainage from ears or nose. She had no loss of bowel or bladder control. She states that she has been under extra stress from working additional hours for work. Severity/Quality: moderate, constant Prior Headaches/Recent Trauma: frequent headaches Modifying Factors: worse with movement Associated Symptoms: No confusion, No fatigue, No facial pain, No fever/chills, No flushing, No loss of consciousness, No nausea/vomiting, No nasal congestion, No nasal drainage, No numbness in legs/feet, No rash; seizures (Nonepileptic seizures); No sinus infection, No stiff neck, No vision changes, No weakness Allergies and Home Medications Allergies Coded Allergies: acetaminophen (Verified Allergy, Mild, NAUSEA, 06/08/18) Penicillins (Verified Allergy, Unknown, RASH, 06/08/18) amoxicillin (Verified Allergy, Unknown, 05/09/17) oxycodone (Verified Allergy, Unknown, NAUSEA, 06/08/18) Patient Home Medication List Home Medication List Reviewed: Yes Clindamycin HCl (Clindamycin HCl) 150 Mg Capsule, 450 MG PO TID Prescribed by: CLARITZA GIORDANO on 02/23/19 1422 Clindamycin HCl (Clindamycin HCl) 150 Mg Capsule, 450 MG PO Q6H Prescribed by: NASRIN ROMERO on 03/04/19 0053 Cyclobenzaprine HCl (Cyclobenzaprine HCl) 10 Mg Tablet, 10 MG PO Q8H PRN for SPASMS Prescribed by: KATRIN CONTRERAS on 07/02/20 0716 Docusate Sodium (Docusate Sodium) 100 Mg Capsule, 100 MG PO BID Prescribed by: MARY GLASER on 06/09/18 1005 Ibuprofen (Ibuprofen) 800 Mg Tablet, 800 MG PO q8 PRN for BACK PAIN Prescribed by: MARY GLASER on 06/09/18 1005 Ibuprofen (Ibuprofen) 800 Mg Tablet, 800 MG PO Q8H PRN for PAIN Prescribed by: CLARITZA GIORDANO on 02/23/19 142 Ibuprofen (Ibuprofen) 800 Mg Tablet, 800 MG PO Q8H PRN for PAIN Prescribed by: KATRIN CONTRERAS on 07/02/20 0716 Oxycodone HCl/Acetaminophen (Percocet 5-325 mg Tablet) 1 Each Tablet, 1 EACH PO Q6H PRN for PAIN-MODERATE Prescribed by: MARY GLASER on 06/08/18 0827 Oxycodone HCl/Acetaminophen (Percocet 5-325 mg Tablet) 1 Each Tablet, 1 TAB PO Q6H PRN for PAIN-MODERATE Prescribed by: MARY GLASER on 06/09/18 1005 Pnv No.118/Iron Fumarate/FA ( 19 Chewable Tablet) 1 Each Tab.chew, 2 EACH PO DAILY, (Reported) Entered as Reported by: MELLO HAIR on 06/04/18 1318 Sulfamethoxazole/Trimethoprim (Bactrim Ds Tablet) 1 Each Tablet, 1 EACH PO BID Prescribed by: NASRIN ROMERO on 08/24/19 1142 Sulfamethoxazole/Trimethoprim (Bactrim Ds Tablet) 1 Each Tablet, 1 EACH PO BID Prescribed by: JULIOCESAR ALCALA on 10/30/20 1935 [lortab elixir] , 10 ML PO TID Prescribed by: CLARITZA GIORDANO on 02/23/19 142 [viscous lidocaine] , BC TIDAC PRN for throat pain Prescribed by: CLARITZA GIORDANO on 02/23/19 142 Review of Systems Review of Systems Constitutional: No chills, No dizziness, No fever Eyes: Denies Blurred Vision, Denies Photophobia, Denies Vision Changes Ears, Nose, Mouth, Throat: denies ear pain, denies ear discharge, denies nose pain, denies nose discharge, denies epistaxis, denies mouth swelling Respiratory: No cough, No short of breath Cardiovascular: No chest pain Gastrointestinal: No nausea, No vomiting Genitourinary: No dysuria, No frequency Musculoskeletal: no symptoms reported Skin: no symptoms reported Psychiatric/Neurological: Headache (Generalized) Past Itdlkdz-Bsgztr-Ohuciz Hx Patient Social History Tobacco Use?: No Use of E-Cig and/or Vaping dev: Yes Substance use?: No Alcohol Use?: No Pt feels they are or have been: No Immunizations Up To Date Tetanus Booster (TDap): Unknown Seasonal Allergies Seasonal Allergies: No Past Medical History Surgeries: Yes (EAR CYST REMOVAL, Bartholean cyst removal) Gallbladder Respiratory: Yes Asthma Currently Using CPAP: No Currently Using BIPAP: No Cardiac: No Neurological: No Genitourinary: No Gastrointestinal: No Musculoskeletal: Yes Scoliosis Endocrine: No HEENT: No Cancer: No Psychosocial: Yes (suicidal thoughts) Integumentary: No Blood Disorders: No Family Medical History Blood clots 19 MOTHER Scoliosis G8 BROTHER No Pertinent Family Hx Physical Exam Vital Signs Vital Signs - First Documented 09/28/21 14:47 Temp 36.8 Pulse 82 Resp 18 B/P (MAP) 115/59 (77) Pulse Ox 100 O2 Delivery Room Air Capillary Refill : Less Than 3 Seconds Height, Weight, BMI Height: 5'2.00" Weight: 182lbs. 8.0oz. 82.113924hn; 22.00 BMI Method:Stated General Appearance: WD/WN, no apparent distress HEENT: PERRL/EOMI, normal ENT inspection, TMs normal, pharynx normal Neck: non-tender, full range of motion, supple, normal inspection Cardiovascular: normal peripheral pulses, regular rate, rhythm Respiratory: chest non-tender, lungs clear, normal breath sounds, no respiratory distress, no accessory muscle use Gastrointestinal: normal bowel sounds, non tender, soft, no pulsatile mass Extremities: normal range of motion, non-tender, normal capillary refill Psychiatric: alert, oriented x 3 Crainal Nerves: normal hearing, normal speech, PERRL Coordination/Gait: normal gait Motor/Sensory: no motor deficit, no sensory deficit Skin: normal color, warm/dry Progress/Results/Core Measures Results/Orders My Orders Orders - SYLVAIN COLE MD Ketorolac Injection (Toradol Injection) (09/28/21 15:07) Diphenhydramine Injection (Benadryl Inje (09/28/21 15:07) Vital Signs/I&O 09/28/21 09/28/21 14:47 15:14 Temp 36.8 36.8 Pulse 82 82 Resp 18 18 B/P (MAP) 115/59 (77) 115/59 Pulse Ox 100 100 O2 Delivery Room Air Room Air Blood Pressure Mean: 77 Progress Progress Note : Progress Note Has she has no definite head trauma and no acute neurologic deficit will treat with migraine cocktail which she states she has had before. Will administer Toradol and Benadryl IM to help with her headache. Counseled to continue on regular medications and follow-up through the clinic for continued concerns. Departure Impression Primary Impression: Migraine headache Qualified Codes: G43.009 - Migraine without aura, not intractable, without status migrainosus Additional Impression: Psychogenic nonepileptic seizure Disposition: HOME, SELF-CARE Condition: Stable Departure-Patient Inst. Decision time for Depature: 15:08 Referrals: SHEEBA EARLY APRN (PCP) Primary Care Physician [facility] (Family) Primary Care Physician Patient Instructions: Migraines in Adults Add. Discharge Instructions: Stay well-hydrated and drink plenty of fluids. Try to get plenty of rest. Follow-up with your primary provider for continued concerns. All discharge instructions reviewed with patient and/or family. Voiced understanding. Work/School Note: Work Release Form Date Seen in the Emergency Department: September 28, 2021 Return to Work: September 29, 2021 Restrictions: No Restrictions SYLVAIN COLE MD September 28, 2021 15:00
[2021-09-28] MEDS ORDERED: diphenhydrAMINE 50 MG/ML INJ (BENADRYL) IM STA (15:07)
[2021-09-28] MEDS ORDERED: KETOROLAC 60 MG/2 ML VIAL IM STA (15:07)
[2021-09-28 15:14] VITALS: BP 115/59
== END 2021-09-28 15:16 | disposition home or self-care (01) ==
LOC: EDUNIT# 14:34 → ER FS 14:35
DX: G43.009 Migraine without aura, not intractable, without status migrainosus (principal); F44.5 Conversion disorder with seizures or convulsions; F17.290 Nicotine dependence, other tobacco product, uncomplicated
CPT/HCPCS: 99284

== ENCOUNTER 2021-12-24 22:01 | Emergency (ER) | payer MEDICAID, OTHER ==
[2021-12-24] MEDS ORDERED: diphenhydrAMINE 50 MG/ML INJ (BENADRYL) IM ONE (22:15)
[2021-12-24] MEDS ORDERED: PROCHLORPERAZINE 10 MG/2ML INJ (COMPAZINE) IV ONE (22:15)
[2021-12-24] MEDS ORDERED: METOCLOPRAMIDE INJ 10 MG/2 ML (REGLAN) IVP ONE (22:15)
[2021-12-24] MEDS ORDERED: diphenhydrAMINE 50 MG/ML INJ (BENADRYL) IVP ONE (22:15)
--- NOTE | 2021-12-24 22:27 | ED Headache ---
General Chief Complaint: Head/Cervical Problems Stated Complaint: SEIZURE Nursing Triage Note: Pt brought in by ems with after having a seizure at the [facility]. Pt has a hx of pseudo seizures. Pt complaining of a headache on arrival Source: patient, EMS Exam Limitations: no limitations History of Present Illness Date Seen by Provider: Dec 24, 2021 Time Seen by Provider: 22:00 Initial Comments Patient is a 26-year-old female with history of pseudoseizures and migraine headaches who presents with typical migraine headache. Patient states headache began gradually this morning progressed throughout the day. Headaches dull throbbing retro-orbital rated mild to moderate. Patient had ibuprofen earlier today without relief of symptoms. She reports nausea without vomiting. Patient also has a history of pseudoseizures and had 3 witnessed pseudoseizures earlier today. There is no postictal period observed and the patient did not injure herself. She states her pseudoseizures today were similar to prior seizures. She states she has had pseudoseizures since she was a teenager and has never been placed on seizure medications. Last menstrual period was 1 week ago. Patient has been in custody 32 days. Timing/Duration: 1 hour Severity/Quality: mild Location: other Prior Headaches/Recent Trauma: other Modifying Factors: improves with other Associated Symptoms: other Allergies and Home Medications Allergies Coded Allergies: acetaminophen (Verified Allergy, Mild, NAUSEA, 06/08/18) Penicillins (Verified Allergy, Unknown, RASH, 06/08/18) amoxicillin (Verified Allergy, Unknown, 05/09/17) oxycodone (Verified Allergy, Unknown, NAUSEA, 06/08/18) Patient Home Medication List Home Medication List Reviewed: No Clindamycin HCl (Clindamycin HCl) 150 Mg Capsule, 450 MG PO TID Prescribed by: CLARITZA GIORDANO on 02/23/19 1422 Clindamycin HCl (Clindamycin HCl) 150 Mg Capsule, 450 MG PO Q6H Prescribed by: NASRIN ROMERO on 03/04/19 0053 Cyclobenzaprine HCl (Cyclobenzaprine HCl) 10 Mg Tablet, 10 MG PO Q8H PRN for SPASMS Prescribed by: KATRIN CONTRERAS on 07/02/20 0716 Docusate Sodium (Docusate Sodium) 100 Mg Capsule, 100 MG PO BID Prescribed by: MARY GLASER on 06/09/18 1005 Ibuprofen (Ibuprofen) 800 Mg Tablet, 800 MG PO q8 PRN for BACK PAIN Prescribed by: MARY GLASER on 06/09/18 1005 Ibuprofen (Ibuprofen) 800 Mg Tablet, 800 MG PO Q8H PRN for PAIN Prescribed by: CLARITZA GIORDANO on 02/23/19 1422 Ibuprofen (Ibuprofen) 800 Mg Tablet, 800 MG PO Q8H PRN for PAIN Prescribed by: KATRIN CONTRERAS on 07/02/20 0716 Oxycodone HCl/Acetaminophen (Percocet 5-325 mg Tablet) 1 Each Tablet, 1 EACH PO Q6H PRN for PAIN-MODERATE Prescribed by: MARY GLASER on 06/08/18 0827 Oxycodone HCl/Acetaminophen (Percocet 5-325 mg Tablet) 1 Each Tablet, 1 TAB PO Q6H PRN for PAIN-MODERATE Prescribed by: MARY GLASER on 06/09/18 1005 Pnv No.118/Iron Fumarate/FA ( 19 Chewable Tablet) 1 Each Tab.chew, 2 EACH PO DAILY, (Reported) Entered as Reported by: MELLO HAIR on 06/04/18 1318 Sulfamethoxazole/Trimethoprim (Bactrim Ds Tablet) 1 Each Tablet, 1 EACH PO BID Prescribed by: NASRIN ROMERO on 08/24/19 1142 Sulfamethoxazole/Trimethoprim (Bactrim Ds Tablet) 1 Each Tablet, 1 EACH PO BID Prescribed by: JULIOCESAR ALCALA on 10/30/20 1935 [lortab elixir] , 10 ML PO TID Prescribed by: CLARITZA GIORDANO on 02/23/19 142 [viscous lidocaine] , BC TIDAC PRN for throat pain Prescribed by: CLARITZA GIORDANO on 02/23/19 1422 Review of Systems Review of Systems Constitutional: see HPI Eyes: See HPI Ears, Nose, Mouth, Throat: see HPI Respiratory: see HPI Cardiovascular: see HPI Gastrointestinal: see HPI Genitourinary: see HPI Musculoskeletal: see HPI Skin: see HPI Psychiatric/Neurological: See HPI All Other Systems Reviewed Negative Unless Noted: No Past Ajwdvsg-Yhoxwj-Lbfuie Hx Patient Social History Tobacco Use?: No Use of E-Cig and/or Vaping dev: Yes E-Cig or Vaping type used: Nicotine Substance use?: Yes Substance type: Methamphetamine, Marijuana Alcohol Use?: No Pt feels they are or have been: No Immunizations Up To Date Tetanus Booster (TDap): Unknown Seasonal Allergies Seasonal Allergies: No Past Medical History Surgeries: Yes (EAR CYST REMOVAL, Bartholean cyst removal) Gallbladder Respiratory: Yes Asthma Currently Using CPAP: No Currently Using BIPAP: No Cardiac: No Neurological: No Genitourinary: No Gastrointestinal: No Musculoskeletal: Yes Scoliosis Endocrine: No HEENT: No Cancer: No Psychosocial: Yes (suicidal thoughts) Integumentary: No Blood Disorders: No Family Medical History Blood clots 19 MOTHER Scoliosis G8 BROTHER No Pertinent Family Hx Physical Exam Vital Signs Vital Signs - First Documented 12/24/21 22:02 Temp 36.7 Pulse 123 Resp 18 B/P (MAP) 144/91 (108) Pulse Ox 100 O2 Delivery Room Air Capillary Refill : Less Than 3 Seconds Height, Weight, BMI Height: 5'2.00" Weight: 182lbs. 8.0oz. 82.805886sn; 22.00 BMI Method:Stated General Appearance: WD/WN, no apparent distress HEENT: PERRL/EOMI, normal ENT inspection, TMs normal Neck: full range of motion Cardiovascular: normal peripheral pulses, regular rate, rhythm Respiratory: lungs clear Extremities: no calf tenderness Psychiatric: oriented x 3 Crainal Nerves: PERRL, abnormal eye position Coordination/Gait: normal gait Motor/Sensory: no motor deficit, no sensory deficit Progress/Results/Core Measures Results/Orders My Orders Orders - AMITA COLÓN DO Metoclopramide Injection (Reglan Injecti (12/24/21 22:15) Prochlorperazine Injection (Compazine In (12/24/21 22:15) Diphenhydramine Injection (Benadryl Inje (12/24/21 22:15) Vital Signs/I&O 12/24/21 22:02 Temp 36.7 Pulse 123 Resp 18 B/P (MAP) 144/91 (108) Pulse Ox 100 O2 Delivery Room Air Blood Pressure Mean: 108 Departure Communication (Admissions) Patient neurologically intact. Typical migraine headache with history of pseudoseizures. IV with fluids initiated prior to ED arrival. Typical migraine cocktail given with resolution of symptoms. Recommendations are watchful waiting, supportive care with infirmary follow-up. Impression Primary Impression: Migraine Additional Impression: Pseudoseizures Disposition: HOME, SELF-CARE Condition: Stable Departure-Patient Inst. Decision time for Depature: 22:26 Referrals: SHEEBA EARLY APRN (PCP) Primary Care Physician [facility] (Family) Primary Care Physician Patient Instructions: Migraines in Adults Add. Discharge Instructions: You were evaluated in the emergency department for migraines and pseudoseizures. Please continue to rest take ibuprofen and/or Excedrin Migraine OTC as needed for additional relief. Follow-up with the [facility] tomorrow for further treatment as needed. All discharge instructions reviewed with patient and/or family. Voiced understanding. AMITA COLÓN DO Dec 24, 2021 22:27
[2021-12-24 23:07] VITALS: BP 99/61
== END 2021-12-24 23:08 | disposition home or self-care (01) ==
LOC: EDUNIT# 22:01 → ER FS 22:02
DX: G43.909 Migraine, unspecified, not intractable, without status migrainosus (principal); R56.9 Unspecified convulsions; F17.290 Nicotine dependence, other tobacco product, uncomplicated; Z28.310 Unvaccinated for COVID-19

== ENCOUNTER 2023-03-16 12:32 | Emergency (ER) | payer SELFPAY ==
[~2023-03-16] VITALS: Ht 157.5 cm; Wt 55.3 kg
[2023-03-16] MEDS: NS IV 1000 ML 1,000 ML IV SCH (12:57)
[2023-03-16] MEDS: KETOROLAC INJ 15 MG/ML VIAL IVP ONE (12:57)
[2023-03-16] MEDS ORDERED: HOLD METFORMIN - RECEIVED CONTRAST 20 ML VIAL IV SCH (13:00)
--- NOTE | 2023-03-16 13:00 | ED GU-Female ---
General Chief Complaint: Abdominal/GI Problems Stated Complaint: SUPRAPUBIC/ABD PAIN; N/V/D Nursing Triage Note: PT AMBULATE TO ROOM FS02 WITHOUT DIFFICULTY WITH C/O PAIN FROM PELVIS RADIATING TO STERNUM, N/V/D X2 DAYS. PT REPORTS X2 DAYS AGO SHE LEFT A TAMPON INSERTED FROM 1400 TO 0200 THE FOLLOWING MORNING. PT STATES SHE THINKS SHE HAS TOXIC SHOCK SYNDROME. Source: patient Exam Limitations: no limitations History of Present Illness Date Seen by Provider: Mar 16, 2023 Time Seen by Provider: 12:41 Initial Comments 28-year-old female presents the emergency department today for suprapubic abdominal pain. Symptoms started a couple days ago and are associated with nausea and vomiting as well. She states she has a tampon in from 2 PM to 2 AM prior to the onset of her current symptoms and she believes she may have toxic shock syndrome. She has pain in her pelvic region that radiates up to her sternum. She denies any vaginal discharge. Her menstrual cycle lasted a couple days longer than normal. She denies that she could be . She has had her gallbladder removed but no other intra-abdominal surgeries. Normal bowel and bladder habits without any other issues. All other systems reviewed and negative except documented per HPI. Voice recognition software was used to help create this chart Allergies and Home Medications Allergies Coded Allergies: acetaminophen (Verified Allergy, Mild, NAUSEA, 06/08/18) Penicillins (Verified Allergy, Unknown, RASH, 06/08/18) amoxicillin (Verified Allergy, Unknown, 05/09/17) oxycodone (Verified Allergy, Unknown, NAUSEA, 06/08/18) Patient Home Medication List Home Medication List Reviewed: Yes Clindamycin HCl (Clindamycin HCl) 150 Mg Capsule, 450 MG PO TID Prescribed by: CLARITZA GIORDANO on 02/23/19 1422 Clindamycin HCl (Clindamycin HCl) 150 Mg Capsule, 450 MG PO Q6H Prescribed by: NASRIN ROMERO on 03/04/19 0053 Cyclobenzaprine HCl (Cyclobenzaprine HCl) 10 Mg Tablet, 10 MG PO Q8H PRN for SPASMS Prescribed by: KATRIN CONTRERAS on 07/02/20 0716 Docusate Sodium (Docusate Sodium) 100 Mg Capsule, 100 MG PO BID Prescribed by: MARY GLASER on 06/09/18 1005 Ibuprofen (Ibuprofen) 800 Mg Tablet, 800 MG PO q8 PRN for BACK PAIN Prescribed by: MARY GLASER on 06/09/18 1005 Ibuprofen (Ibuprofen) 800 Mg Tablet, 800 MG PO Q8H PRN for PAIN Prescribed by: CLARITZA GIORDANO on 02/23/19 1422 Ibuprofen (Ibuprofen) 800 Mg Tablet, 800 MG PO Q8H PRN for PAIN Prescribed by: KATRIN CONTRERAS on 07/02/20 0716 Oxycodone HCl/Acetaminophen (Percocet 5-325 mg Tablet) 1 Each Tablet, 1 EACH PO Q6H PRN for PAIN-MODERATE Prescribed by: MARY GLASER on 06/08/18 0827 Oxycodone HCl/Acetaminophen (Percocet 5-325 mg Tablet) 1 Each Tablet, 1 TAB PO Q6H PRN for PAIN-MODERATE Prescribed by: MARY GLASER on 06/09/18 1005 Pnv No.118/Iron Fumarate/FA ( 19 Chewable Tablet) 1 Each Tab.chew, 2 EACH PO DAILY, (Reported) Entered as Reported by: MELLO HAIR on 06/04/18 1318 Sulfamethoxazole/Trimethoprim (Bactrim Ds Tablet) 1 Each Tablet, 1 EACH PO BID Prescribed by: NASRIN ROMERO on 08/24/19 1142 Sulfamethoxazole/Trimethoprim (Bactrim Ds Tablet) 1 Each Tablet, 1 EACH PO BID Prescribed by: JULIOCESAR ALCALA on 10/30/20 1935 [lortab elixir] , 10 ML PO TID Prescribed by: CLARITZA GIORDANO on 02/23/19 142 [viscous lidocaine] , BC TIDAC PRN for throat pain Prescribed by: CLARITZA GIORDANO on 02/23/19 142 Review of Systems Review of Systems Constitutional: see HPI Past Ixdcenj-Fgoivv-Vtphke Hx Patient Social History Tobacco Use?: No Smoking Status: Never a Smoker Smokeless Tobacco Frequency: Never a User Use of E-Cig and/or Vaping dev: Yes E-Cig or Vaping type used: Nicotine Use of E-Cig and/or Vaping Marvin: Current Everyday User Substance use?: Yes Substance type: Marijuana Substance frequency: Daily Alcohol Use?: Yes Alcohol Frequency: Once in a while Pt feels they are or have been: No Immunizations Up To Date Tetanus Booster (TDap): Unknown Seasonal Allergies Seasonal Allergies: No Past Medical History Surgeries: Yes (EAR CYST REMOVAL, Bartholean cyst removal) Gallbladder Respiratory: Yes Asthma Currently Using CPAP: No Currently Using BIPAP: No Cardiac: No Neurological: No Genitourinary: No Gastrointestinal: No Musculoskeletal: Yes Scoliosis Endocrine: No HEENT: No Cancer: No Psychosocial: Yes (suicidal thoughts) Integumentary: No Blood Disorders: No Family Medical History Blood clots 19 MOTHER Scoliosis G8 BROTHER No Pertinent Family Hx Physical Exam Vital Signs Vital Signs - First Documented 03/16/23 12:37 Temp 37.1 Pulse 137 Resp 17 B/P (MAP) 100/71 (81) O2 Delivery Room Air Capillary Refill : Less Than 3 Seconds Height, Weight, BMI Height: 5'2.00" Weight: 182lbs. 8.0oz. [id number]; 22.00 BMI Method:Stated General Appearance: WD/WN, no apparent distress HEENT: normal ENT inspection, pharynx normal Neck: non-tender, supple Cardiovascular: regular rate, rhythm, no murmur Respiratory: chest non-tender, lungs clear, normal breath sounds, no respiratory distress, no accessory muscle use Gastrointestinal: non tender, no organomegaly, tenderness (Diffuse abdominal tenderness with out any rebound or guarding. No mass organomegaly. This does seem to be worse in the lower abdominal quadrants bilaterally and suprapubic region.) Extremities: normal range of motion, non-tender, normal inspection, no calf tenderness, normal capillary refill Neurologic/Psychiatric: alert, oriented x 3 Skin: normal color, warm/dry Focused Exam Lactate Level 03/16/23 12:43: Lactic Acid Level 1.17 Lactic Acid Level Laboratory Tests Test 03/16/23 12:43 Lactic Acid Level 1.17 MMOL/L (0.50-2.00) Progress/Results/Core Measures Suspected Sepsis SIRS Temperature: Pulse: 137 Respiratory Rate: 17 Laboratory Tests 03/16/23 12:43: White Blood Count 35.4*H Blood Pressure 100 /71 Mean: 81 03/16/23 12:43: Lactic Acid Level 1.17 Laboratory Tests 03/16/23 12:43: Creatinine 0.66, Platelet Count 334, Total Bilirubin 1.9H Results/Orders Lab Results Laboratory Tests Test 03/16/23 12:43 03/16/23 13:01 03/16/23 13:57 Range/Units White Blood Count 35.4 *H 4.3-11.0 10^3/uL Red Blood Count 4.60 3.80-5.11 10^6/uL Hemoglobin 13.4 11.5-16.0 g/dL Hematocrit 41 35-52 % Mean Corpuscular Volume 89 80-99 fL Mean Corpuscular Hemoglobin 29 25-34 pg Mean Corpuscular Hemoglobin Concent 33 32-36 g/dL Red Cell Distribution Width 13.3 10.0-14.5 % Platelet Count 334 130-400 10^3/uL Mean Platelet Volume 9.2 9.0-12.2 fL Immature Granulocyte % (Auto) 4 % Neutrophils (%) (Auto) 92 H 42-75 % Lymphocytes (%) (Auto) 3 L 12-44 % Monocytes (%) (Auto) 1 0-12 % Eosinophils (%) (Auto) 0 0-10 % Basophils (%) (Auto) 0 0-10 % Neutrophils # (Auto) 32.3 H 1.8-7.8 10^3/uL Lymphocytes # (Auto) 1.2 1.0-4.0 10^3/uL Monocytes # (Auto) 0.4 0.0-1.0 10^3/uL Eosinophils # (Auto) 0.0 0.0-0.3 10^3/uL Basophils # (Auto) 0.1 0.0-0.1 10^3/uL Immature Granulocyte # (Auto) 1.3 H 0.0-0.1 10^3/uL Neutrophils % (Manual) 64 % Lymphocytes % (Manual) 4 % Monocytes % (Manual) 2 % Eosinophils % (Manual) 0 % Basophils % (Manual) 0 % Band Neutrophils 30 % Blood Morphology Comment NORMAL Sodium Level 130 L 135-145 MMOL/L Potassium Level 3.9 3.6-5.0 MMOL/L Chloride Level 96 L 98-107 MMOL/L Carbon Dioxide Level 22 21-32 MMOL/L Anion Gap 12 5-14 MMOL/L Blood Urea Nitrogen 8 7-18 MG/DL Creatinine 0.66 0.60-1.30 MG/DL Estimat Glomerular Filtration Rate 122 BUN/Creatinine Ratio 12 Glucose Level 91 70-105 MG/DL Lactic Acid Level 1.17 0.50-2.00 MMOL/L Calcium Level 9.9 8.5-10.1 MG/DL Corrected Calcium 9.6 8.5-10.1 MG/DL Total Bilirubin 1.9 H 0.1-1.0 MG/DL Aspartate Amino Transf (AST/SGOT) 12 5-34 U/L Alanine Aminotransferase (ALT/SGPT) 8 0-55 U/L Alkaline Phosphatase 77 40-136 U/L Total Protein 8.2 6.4-8.2 GM/DL Albumin 4.4 3.2-4.5 GM/DL Urine Color YELLOW Urine Clarity TURBID Urine pH 6.0 5-9 Urine Specific [place] >=1.030 1.016-1.022 Urine Protein 1+ H NEGATIVE Urine Glucose (UA) NEGATIVE NEGATIVE Urine Ketones 1+ H NEGATIVE Urine Nitrite NEGATIVE NEGATIVE Urine Bilirubin NEGATIVE NEGATIVE Urine Urobilinogen 0.2 < = 1.0 MG/DL Urine Leukocyte Esterase 2+ H NEGATIVE Urine RBC (Auto) 1+ H NEGATIVE Urine RBC 0-2 /HPF Urine WBC 25-50 H /HPF Urine Squamous Epithelial Cells 2-5 /HPF Urine Crystals PRESENT H /LPF Urine Amorphous Sediment FEW NORMA URATES H /LPF Urine Bacteria MODERATE H /HPF Urine Casts NONE /LPF Urine Mucus SMALL H /LPF Urine Culture Indicated YES Urine Opiates Screen NEGATIVE NEGATIVE Urine Oxycodone Screen NEGATIVE NEGATIVE Urine Methadone Screen NEGATIVE NEGATIVE Urine Barbiturates Screen NEGATIVE NEGATIVE Ur Tricyclic Antidepressants Screen NEGATIVE NEGATIVE Urine Phencyclidine Screen NEGATIVE NEGATIVE Urine Amphetamines Screen POSITIVE H NEGATIVE Urine Methamphetamines Screen POSITIVE H NEGATIVE Urine Benzodiazepines Screen NEGATIVE NEGATIVE Urine Cocaine Screen NEGATIVE NEGATIVE Urine Cannabinoids Screen POSITIVE H NEGATIVE Micro Results Microbiology 03/16/23 Wet Prep - Final, Complete My Orders Orders - AILEEN STARK DO Ua Culture If Indicated (03/16/23 12:41) Urine Bedside (03/16/23 12:45) Cbc And Automated Diff (03/16/23 12:45) Comprehensive Metabolic Panel (03/16/23 12:45) Ct Abd/Pelv W (Appendicitis) (03/16/23 12:45) Ns Iv 1000 Ml (Ns Iv 1000 Ml) (03/16/23 12:45) Ketorolac Injection (Ketorolac Injection (03/16/23 12:45) Lactic Acid Analyzer (03/16/23 12:46) Drug Screen Stat (Urine) (03/16/23 12:51) Ed Iv/Invasive Line Start (03/16/23 12:53) Iohexol Injection (Omnipaque 350 Mg/Ml 1 (03/16/23 13:00) Received Contrast (Hold Metformin- Contr (03/16/23 13:00) Ns (Ivpb) 100 Ml (Sodium Chloride 0.9% 1 (03/16/23 13:00) Blood Culture (03/16/23 13:07) Ed Iv/Invasive Line Start (03/16/23 13:07) Manual Differential (03/16/23 12:43) Urine Culture (03/16/23 13:01) Clindamycin 600 Mg/50 Ml Ivpb (Clindamyc (03/16/23 13:45) Chlamydia Trachomatis Swab (03/16/23 13:52) Neisseria Gonorrhea Swab (03/16/23 13:52) Wet Prep (03/16/23 13:52) Ed Admission (Communication) (03/16/23 14:20) Medications Given in ED Current Medications Medications Dose Ordered Sig/Vicky Route Start Time Stop Time Status Last Admin Dose Admin Clindamycin Phosphate/Dextrose 50 ml @ 100 mls/hr ONCE ONCE IV 03/16/23 13:45 03/16/23 14:14 DC 03/16/23 14:00 100 MLS/HR Iohexol 100 ml ONCE ONCE IV 03/16/23 13:00 03/16/23 13:01 DC 03/16/23 13:21 75 ML Ketorolac Tromethamine 15 mg ONCE ONCE IVP 03/16/23 12:45 03/16/23 12:46 DC 03/16/23 12:57 15 MG Sodium Chloride 100 ml ONCE ONCE IV 03/16/23 13:00 03/16/23 13:01 DC 03/16/23 13:21 80 ML Vital Signs/I&O 03/16/23 12:37 Temp 37.1 Pulse 137 Resp 17 B/P (MAP) 100/71 (81) O2 Delivery Room Air Capillary Refill : Less Than 3 Seconds Blood Pressure Mean: 81 Departure Communication (Admissions) Patient is tachycardic but otherwise hemodynamically stable. She has severe leukocytosis 35,000 with a left shift and bands. I did a pelvic exam and there is no retained products in the vaginal cavity. She is afebrile here. I did a CT scan which only showed changes consistent with possible enteritis. I did independently review the images. She does have some vaginal discharge on pelvic exam. I went ahead and ordered clindamycin for possibility of toxic shock syndrome which she received IV x1. I spoke with Dr. Beatty who recommends patient be admitted to the hospital in [place]. I spoke with the patient and she states she is homeless, living out of her car and has a dog. She states she cannot be admitted to the hospital at this time. I informed her that this is a potentially life-threatening infection that was not effectively treated with oral antibiotics and that she should consider being admitted to the hospital, at the very least overnight for IV antibiotics. She again declines. She does acknowledge risks up to including . She decides to sign out AGAINST MEDICAL ADVICE. I did speak with Dr. Beatty to let her know. Impression Primary Impression: Toxic shock syndrome (TSS) Disposition: 30 STILL A PATIENT Condition: Stable Departure-Patient Inst. Referrals: [facility] (PCP/Family) Primary Care Physician Patient Instructions: Toxic Shock Syndrome (DC) AILEEN STARK DO Mar 16, 2023 13:00
[2023-03-16 13:05] LABS: BASOPHILS # (AUTO) 0.1 10^3/uL (0.0-0.1); BASOPHILS % (AUTO) 0 % (0-10); EOSINOPHILS % (AUTO) 0 % (0-10); HEMATOCRIT 41 % (35-52); HEMOGLOBIN 13.4 g/dL (11.5-16.0); LYMPHOCYTES # (AUTO) 1.2 10^3/uL (1.0-4.0); LYMPHOCYTES % (AUTO) 3 % (12-44); MEAN CORPUSCULAR HEMOGLOBIN 29 pg (25-34); MEAN CORPUSCULAR HGB CONC 33 g/dL (32-36); MEAN CORPUSCULAR VOLUME 89 fL (80-99); MEAN PLATELET VOLUME 9.2 fL (9.0-12.2); MONOCYTES # (AUTO) 0.4 10^3/uL (0.0-1.0); MONOCYTES % (AUTO) 1 % (0-12); NEUTROPHILS # (AUTO) 32.3 10^3/uL (1.8-7.8); NEUTROPHILS % (AUTO) 92 % (42-75); PLATELET COUNT 334 10^3/uL (130-400)
[2023-03-16 13:07] LABS: WHITE BLOOD COUNT 35.4 10^3/uL (4.3-11.0)
[2023-03-16 13:11] LABS: BILIRUBIN,TOTAL 1.9 MG/DL (0.1-1.0); CALCIUM 9.9 MG/DL (8.5-10.1); POTASSIUM 3.9 MMOL/L (3.6-5.0); TOTAL PROTEIN 8.2 GM/DL (6.4-8.2)
[2023-03-16 13:12] LABS: BILIRUBIN,URINE NEGATIVE (NEGATIVE); CLARITY,URINE TURBID; COLOR,URINE YELLOW; GLUCOSE, URINE (UA) NEGATIVE (NEGATIVE); KETONES,URINE 1+ (NEGATIVE); LEUKOCYTE ESTERASE ,URINE 2+ (NEGATIVE); NITRITE,URINE NEGATIVE (NEGATIVE); PROTEIN,URINE 1+ (NEGATIVE)
[2023-03-16 13:20] LABS: ALBUMIN 4.4 GM/DL (3.2-4.5); CREATININE SERUM 0.66 MG/DL (0.60-1.30)
[2023-03-16] MEDS: NS 100 ML (IVPB) BAG IV ONE (13:21)
[2023-03-16] MEDS: IOHEXOL 350 MG/ML 100 ML (OMNIPAQUE 350) VIAL IV ONE (13:21)
[2023-03-16 13:22] LABS: AMORPHOUS SEDIMENT,UR FEW AMOR URATES /LPF; BACTERIA,URINE MODERATE /HPF; RBC,URINE 0-2 /HPF; WBC,URINE 25-50 /HPF
[2023-03-16 13:26] LABS: AMPHETAMINE SCREEN, URINE POSITIVE (NEGATIVE); CANNABINOID SCREEN, URINE POSITIVE (NEGATIVE); COCAINE SCREEN URINE NEGATIVE (NEGATIVE)
[2023-03-16 13:27] LABS: BARBITURATE SCREEN URINE NEGATIVE (NEGATIVE); METHADONE STAT NEGATIVE (NEGATIVE); OPIATE SCREEN URINE NEGATIVE (NEGATIVE); OXYCODONE STAT NEGATIVE (NEGATIVE); TRICYCLIC ANTIDEPRESSANTS SCRE NEGATIVE (NEGATIVE)
--- NOTE | 2023-03-16 13:33 | Diagnostic Imaging Report ---
PROCEDURE: CT abdomen and pelvis with contrast, rule out appendicitis. TECHNIQUE: Multiple contiguous axial images were obtained through the abdomen and pelvis after the administration of intravenous contrast. All CT scans use one or more of the following dose optimizing techniques: Automated exposure control, MA and/or KvP adjustment based on patient size and exam type or iterative reconstruction. INDICATION: Pelvic pain and right lower quadrant pain. Patient also complains of nausea, vomiting, and diarrhea for two days. Comparison is made with prior CT from 08/26/2019. FINDINGS: Lung bases are clear. No focal liver mass is identified. There is some focal fatty infiltration in the right lobe. The gallbladder is surgically absent. There is no biliary ductal dilatation. Pancreas and spleen are unremarkable. No adrenal mass is detected. Kidneys are unremarkable. No definite calculi or hydronephrosis is identified. Aorta is nonaneurysmal. There are some nonspecific mildly dilated and fluid-filled small bowel loops in the lower abdomen and pelvis demonstrating some mucosal hyperenhancement. Findings are likely owing to nonspecific enteritis. Colon is also partially fluid filled consistent with a diarrheal state. Appendix is unremarkable. No free fluid or fluid collection is identified. The uterus is unremarkable. Bladder is decompressed. There is a small cyst in the right adnexa measuring 2.1 cm consistent with an ovarian cyst. IMPRESSION: There are some dilated and fluid-filled small bowel loops demonstrating some mucosal enhancement consistent with nonspecific enteritis. No bowel obstruction or abscess formation is identified. No other significant abnormality is detected. Dictated by: Dictated on workstation # [id number]
[2023-03-16 13:41] LABS: BAND NEUTROPHILS 30 %; BASOPHILS % (MANUAL) 0 %; EOSINOPHILS % (MANUAL) 0 %; LYMPHOCYTES % (MANUAL) 4 %; MONOCYTES % (MANUAL) 2 %; NEUTROPHILS % (MANUAL) 64 %; RBC MORPH NORMAL
[2023-03-16] MEDS: CLINDAMYCIN 600 MG/50 ML IVPB 50 ML IV ONE (14:00)
[2023-03-16 14:30] VITALS: BP 114/65
[2023-03-17] MEDS ORDERED: IBUP-2473 PO (11:13)
[2023-03-17] MEDS ORDERED: ACET-2267 PO (11:13)
== END 2023-03-16 14:31 | disposition left against medical advice (07) ==
LOC: EDUNIT# 12:32 → ER FS 12:34
DX: A48.3 Toxic shock syndrome (principal); F17.290 Nicotine dependence, other tobacco product, uncomplicated; Z90.49 Acquired absence of other specified parts of digestive tract
CPT/HCPCS: 36415; 74177; 80053; 80306; 81000; 83605; 84703; 85007; 85027; 87040; 87088; 87210; 87491; 87591; Q9967

== ENCOUNTER 2023-03-17 02:24 | Observation (INO) | payer SELFPAY ==
[~2023-03-17] VITALS: Ht 157.5 cm; Wt 55.2 kg
[2023-03-17] MEDS ORDERED: LIDOCAINE UROJET 2% GEL 10 ML PKG TOP ONE (02:45)
[2023-03-17] MEDS ORDERED: LACTATED RINGERS 1,000 ML 1,000 ML IV ONE ×2 (02:45→04:15)
[2023-03-17] MEDS ORDERED: CEFEPIME INJECTION 1,000 MG in NS (IVPB) 50 ML 50 ML IV ONE (02:45)
--- NOTE | 2023-03-17 02:52 | ED General ---
General Stated Complaint: PELVIC PAIN/CHILLS/DIARRHEA/VOMITING/MIGRAINE Source of Information: Patient, Old Records History of Present Illness Date Seen by Provider: Mar 17, 2023 Time Seen by Provider: 02:35 Initial Comments PT AR[facility]IV[facility]--NEEDS WHEELCHAIR ON ARRIVAL PT WAS SEEN AT [facility] THIS AFTERNOON --03/16/23-- FOR THIS SAME COMPLAINT PT STATES SHE STARTED FEELING BAD LAST NIGHT /MONDAY NIGHT 03/15/23 WITH : -GENERALIZED ABDOMINAL PAIN, WORSE ALL ACROSS LOWER ABDOMEN AND PELVIC AREA -NAUSEA AND VOMITING--VOMITED X 2 YESTERDAY, NO VOMITING TODAY -HAD DIARRHEA STOOL X 1 TODAY--NORMAL FOR HER SINCE SHE HAD HER GALLBLADDER REMOVED -SLIGHT BURNING ON URINATION, BUT VOIDING A NORMAL AMOUNT -SUBJECTIVE FEVER AND CHILLS -HEADACHE -BODY ACHES -FATIGUE NO CHEST PAIN OR SHORTNESS OF BREATH NO COUGH NO BACK PAIN OR NECK PAIN OR NECK STIFFNESS LMP 03/10/23--NORMAL. NO CONTROL. SHE DID LEAVE A TAMPON IN FOR 12-13 HOURS ON 03/13/23 PT DENIES VAGINAL DISCHARGE. PT HAS HAD OVARIAN CYST REMOVED IN THE PAST BUT STILL HAS BOTH OVARIES SHE HAS HAD PRIOR CHOLECYSTECTOMY. NO OTHER SURGERIES NO CHRONIC MEDICAL PROBLEMS PT IS HOMELESS, LIVES IN HER CAR SHE SMOKES AND VAPES NICOTINE, SHE ALSO SMOKES THC AND METHAMPHETAMINES, SHE DE NIES IV DRUG USE. DENIES ETOH USE. SHE HAD COMPLETE WORK UP AT [facility] INCLUDING LAB / SEPTIC WORK UP, CT SCAN, PELVIC EXAM WITH GENITAL CULTURES PENDING. HER WBC AT THAT TIME WAS > 35,000 PLANS WERE MADE FOR HER TO BE TRANSFERRED AND ADMITTED HERE, THEN PT SIGNED OUT AMA, STATING SHE "HAD THINGS SHE NEEDED TO DO" PCP: [facility] Allergies and Home Medications Allergies Coded Allergies: Penicillins (Verified Allergy, Unknown, RASH, 06/08/18) amoxicillin (Verified Allergy, Unknown, 05/09/17) oxycodone (Verified Allergy, Unknown, NAUSEA, 06/08/18) Patient Home Medication List Home Medication List Reviewed: Yes Clindamycin HCl (Clindamycin HCl) 150 Mg Capsule, 450 MG PO TID Prescribed by: CLARITZA GIORDANO on 02/23/19 1422 Clindamycin HCl (Clindamycin HCl) 150 Mg Capsule, 450 MG PO Q6H Prescribed by: NASRIN ROMERO on 03/04/19 0053 Cyclobenzaprine HCl (Cyclobenzaprine HCl) 10 Mg Tablet, 10 MG PO Q8H PRN for SPASMS Prescribed by: KATRIN CONTRERAS on 07/02/20 0716 Docusate Sodium (Docusate Sodium) 100 Mg Capsule, 100 MG PO BID Prescribed by: MARY GLASER on 06/09/18 100 Ibuprofen (Ibuprofen) 800 Mg Tablet, 800 MG PO q8 PRN for BACK PAIN Prescribed by: MARY GLASER on 06/09/18 100 Ibuprofen (Ibuprofen) 800 Mg Tablet, 800 MG PO Q8H PRN for PAIN Prescribed by: CLARITZA GIORDANO on 02/23/19 142 Ibuprofen (Ibuprofen) 800 Mg Tablet, 800 MG PO Q8H PRN for PAIN Prescribed by: KATRIN ROWESTJASE on 07/02/20 0716 Oxycodone HCl/Acetaminophen (Percocet 5-325 mg Tablet) 1 Each Tablet, 1 EACH PO Q6H PRN for PAIN-MODERATE Prescribed by: MARY GLASER on 06/08/18 0827 Oxycodone HCl/Acetaminophen (Percocet 5-325 mg Tablet) 1 Each Tablet, 1 TAB PO Q6H PRN for PAIN-MODERATE Prescribed by: MARY GLASER on 06/09/18 100 Pnv No.118/Iron Fumarate/FA ( 19 Chewable Tablet) 1 Each Tab.chew, 2 EACH PO DAILY, (Reported) Entered as Reported by: MELLO HAIR on 06/04/18 1318 Sulfamethoxazole/Trimethoprim (Bactrim Ds Tablet) 1 Each Tablet, 1 EACH PO BID Prescribed by: NASRIN ROMERO on 08/24/19 1142 Sulfamethoxazole/Trimethoprim (Bactrim Ds Tablet) 1 Each Tablet, 1 EACH PO BID Prescribed by: JULIOCESAR ALCALA on 10/30/20 1935 [lortab elixir] , 10 ML PO TID Prescribed by: CLARITZA GIORDANO on 02/23/19 142 [viscous lidocaine] , BC TIDAC PRN for throat pain Prescribed by: CLARITZA GIORDANO on 02/23/19 142 Review of Systems Review of Systems Constitutional: chills, fever, malaise, weakness EENTM: no symptoms reported Respiratory: no symptoms reported Cardiovascular: no symptoms reported Gastrointestinal: see HPI, abdominal pain, diarrhea, nausea, vomiting Genitourinary: see HPI, dysuria : No LMP: Mar 10, 2023 Musculoskeletal: see HPI Skin: no symptoms reported Psychiatric/Neurological: See HPI, Headache Hematologic/Lymphatic: No Symptoms Reported Immunological/Allergic: no symptoms reported Past Jyxyldf-Zmlhmm-Pisplw Hx Patient Social History Tobacco Use?: Yes Tobacco type used: Cigarettes Smoking Status: Current Everyday Smoker Use of E-Cig and/or Vaping dev: Yes E-Cig or Vaping type used: Nicotine, Marijuana Use of E-Cig and/or Vaping Marvin: Current Everyday User Substance use?: Yes Substance type: Amphetamines, Methamphetamine, Marijuana Substance frequency: Daily Alcohol Use?: No Immunizations Up To Date Tetanus Booster (TDap): Unknown Seasonal Allergies Seasonal Allergies: No Past Medical History Surgeries: Yes (EAR CYST REMOVAL, Bartholean cyst removal) Gallbladder Respiratory: Yes Asthma Currently Using CPAP: No Currently Using BIPAP: No Cardiac: No Neurological: No Genitourinary: No Gastrointestinal: No Musculoskeletal: Yes Scoliosis Endocrine: No HEENT: No Cancer: No Psychosocial: Yes (suicidal thoughts) Integumentary: No Blood Disorders: No Family Medical History Blood clots 19 MOTHER Scoliosis G8 BROTHER No Pertinent Family Hx SOCIAL HISTORY: -SMOKES 1 PPD, AND VAPES NICOTINE AND THC -DRUGS--METHAMPHETAMINES, THC--DENIES IV USE, STATES SHE SMOKES THEM -ETOH --DENIES USE Physical Exam Vital Signs Vital Signs - First Documented 03/17/23 03:32 Temp 36.7 Pulse 105 Resp 18 B/P (MAP) 104/66 (79) Pulse Ox 100 O2 Delivery Room Air Capillary Refill : Height, Weight, BMI Height: 5'2.00" Weight: 182lbs. 8.0oz. 82.490453mh; 22.00 BMI Method:Stated General Appearance: No Apparent Distress, WD/WN, Other (VERY DRAMATIC ON ARRIVAL, SLUMPED IN WHEELCHAIR ON ARRIVAL, THEN ONCE SHE IS ON ER CART, SHE APPEARS NORMAL. ) HEENT: PERRL/EOMI, Normal ENT Inspection Neck: Normal Inspection Respiratory: Chest Non Tender, Normal Breath Sounds, No Accessory Muscle Use, No Respiratory Distress Cardiovascular: No Edema, No JVD, No Murmur, Normal Peripheral Pulses, Tachycardia Gastrointestinal: Normal Bowel Sounds, No Organomegaly, No Pulsatile Mass, Soft; No Distended, No Guarding, No Hernia, No Rebound; Tenderness (DIFFUSELY TE NDER, BUT MOST TENDER ALL ACROSS LOWER ABDOMEN) Genital/Rectal: Other (PELVIC EXAM--NORMAL EXTERNAL GENITALIA. SPECULUM EXAM--MODERATE AMOUNT OF YELLOW DISCHARGE, CERVIX MILDLY INFLAMED. MARKED CERVICAL MOTION TENDERNESS. MARKED UTERINE FUNDAL TENDERNESS. MODERATE BILATERAL ADNEXAL TENDERNESS. NO MASSES. ) Back: Normal Inspection, No CVA Tenderness, No Vertebral Tenderness Extremity: Normal Capillary Refill, Normal Inspection, Normal Range of Motion, Non Tender, No Calf Tenderness, No Pedal Edema Neurologic/Psychiatric: Alert, Oriented x3, No Motor/Sensory Deficits, program eligibility specialist II- XII Norm as Tested Skin: Warm/Dry, Pallor, Tattoos/Piercings (EXTENSIVE TATTOOS) Focused Exam Sepsis Stage: Sepsis Possible Source: Genitouriary Lactate Level 03/17/23 03:20: Lactic Acid Level 0.87 Time of Focused Exam: 05:15 Respiratory: Normal Breath Sounds, No Accessory Muscle Use, No Respiratory Distress Cardiovascular: No Edema, No JVD, No Murmur, Tachycardia (HR AROUND 100-105) Capillary Refill: Less Than 3 Seconds Skin: normal color, warm/dry Lactic Acid Level Laboratory Tests Test 03/17/23 03:20 Lactic Acid Level 0.87 MMOL/L (0.50-2.00) Within 3hrs of presentation: Admin fluids, Admin ABX, Blood cultures prior to ABX's, Focus exam, Lactate level Progress/Results/Core Measures Suspected Sepsis SIRS Temperature: Pulse: Respiratory Rate: Laboratory Tests 03/17/23 03:20: White Blood Count 17.6H Blood Pressure / Mean: 03/17/23 03:20: Lactic Acid Level 0.87 Laboratory Tests 03/17/23 03:20: Creatinine 0.72, INR Comment 1.6H, Platelet Count 249, Total Bilirubin 0.9 Results/Orders Lab Results Laboratory Tests Test 03/17/23 03:20 03/17/23 03:27 03/17/23 04:15 03/17/23 05:20 Range/Units White Blood Count 17.6 H 4.3-11.0 10^3/uL Red Blood Count 3.53 L 3.80-5.11 10^6/uL Hemoglobin 10.3 #L 11.5-16.0 g/dL Hematocrit 32 L 35-52 % Mean Corpuscular Volume 91 80-99 fL Mean Corpuscular Hemoglobin 29 25-34 pg Mean Corpuscular Hemoglobin Concent 32 32-36 g/dL Red Cell Distribution Width 13.4 10.0-14.5 % Platelet Count 249 130-400 10^3/uL Mean Platelet Volume 9.4 9.0-12.2 fL Immature Granulocyte % (Auto) 1 % Neutrophils (%) (Auto) 90 H 42-75 % Lymphocytes (%) (Auto) 7 L 12-44 % Monocytes (%) (Auto) 2 0-12 % Eosinophils (%) (Auto) 0 0-10 % Basophils (%) (Auto) 0 0-10 % Neutrophils # (Auto) 15.8 H 1.8-7.8 10^3/uL Lymphocytes # (Auto) 1.2 1.0-4.0 10^3/uL Monocytes # (Auto) 0.4 0.0-1.0 10^3/uL Eosinophils # (Auto) 0.1 0.0-0.3 10^3/uL Basophils # (Auto) 0.0 0.0-0.1 10^3/uL Immature Granulocyte # (Auto) 0.2 H 0.0-0.1 10^3/uL Erythrocyte Sedimentation Rate 64 H 0-20 MM/HR Prothrombin Time 19.7 H 12.2-14.7 SEC INR Comment 1.6 H 0.8-1.4 Activated Partial Thromboplast Time 42 H 24-35 SEC D-Dimer 3.71 H 0.00-0.49 UG/ML Sodium Level 137 135-145 MMOL/L Potassium Level 3.2 L 3.6-5.0 MMOL/L Chloride Level 105 98-107 MMOL/L Carbon Dioxide Level 22 21-32 MMOL/L Anion Gap 10 5-14 MMOL/L Blood Urea Nitrogen 11 7-18 MG/DL Creatinine 0.72 0.60-1.30 MG/DL Estimat Glomerular Filtration Rate 117 BUN/Creatinine Ratio 15 Glucose Level 99 70-105 MG/DL Lactic Acid Level 0.87 0.50-2.00 MMOL/L Calcium Level 9.1 8.5-10.1 MG/DL Corrected Calcium 9.6 8.5-10.1 MG/DL Magnesium Level 1.9 1.6-2.4 MG/DL Total Bilirubin 0.9 0.1-1.0 MG/DL Aspartate Amino Transf (AST/SGOT) 11 5-34 U/L Alanine Aminotransferase (ALT/SGPT) 6 0-55 U/L Alkaline Phosphatase 61 40-136 U/L Total Creatine Kinase 19 L 29-168 U/L Creatine Kinase MB 0.4 <6.6 NG/ML Myoglobin 17.6 10.0-92.0 NG/ML Troponin I < 0.028 <0.028 NG/ML C-Reactive Protein High Sensitivity 37.15 H 0.00-0.50 MG/DL B-Type Natriuretic Peptide < 10.0 <100.0 PG/ML Total Protein 6.4 6.4-8.2 GM/DL Albumin 3.4 3.2-4.5 GM/DL Amylase Level 33 25-125 U/L Lipase 14 8-78 U/L Serum Test, Qualitative NEGATIVE NEGATIVE Acetaminophen Level < 10 L 10-30 UG/ML Serum Alcohol < 10 <10 MG/DL Influenza Type A (RT-PCR) Not Detected Not Detecte Influenza Type B (RT-PCR) Not Detected Not Detecte SARS-CoV-2 RNA (RT-PCR) Not Detected Not Detecte Urine Color YELLOW Urine Clarity CLEAR Urine pH 5.5 5-9 Urine Specific [place] 1.020 1.016-1.022 Urine Protein 1+ H NEGATIVE Urine Glucose (UA) NEGATIVE NEGATIVE Urine Ketones TRACE H NEGATIVE Urine Nitrite NEGATIVE NEGATIVE Urine Bilirubin NEGATIVE NEGATIVE Urine Urobilinogen 0.2 < = 1.0 MG/DL Urine Leukocyte Esterase NEGATIVE NEGATIVE Urine RBC (Auto) NEGATIVE NEGATIVE Urine RBC NONE /HPF Urine WBC 2-5 /HPF Urine Squamous Epithelial Cells 0-2 /HPF Urine Crystals PRESENT H /LPF Urine Amorphous Sediment FEW NORMA URATES H /LPF Urine Bacteria MODERATE H /HPF Urine Casts NONE /LPF Urine Mucus LARGE H /LPF Urine Culture Indicated CULTURE PENDING Urine Opiates Screen NEGATIVE NEGATIVE Urine Oxycodone Screen NEGATIVE NEGATIVE Urine Methadone Screen NEGATIVE NEGATIVE Urine Barbiturates Screen NEGATIVE NEGATIVE Ur Tricyclic Antidepressants Screen NEGATIVE NEGATIVE Urine Phencyclidine Screen NEGATIVE NEGATIVE Urine Amphetamines Screen POSITIVE H NEGATIVE Urine Methamphetamines Screen POSITIVE H NEGATIVE Urine Benzodiazepines Screen NEGATIVE NEGATIVE Urine Cocaine Screen NEGATIVE NEGATIVE Urine Cannabinoids Screen POSITIVE H NEGATIVE Micro Results Microbiology My Orders Orders - RICCARDO,DANIA K DO Ed Iv/Invasive Line Start (03/17/23 02:37) Ekg Tracing (03/17/23 02:37) Catheter(Urinary) Insert & Ass 03,15 (03/17/23 02:37) O2 (03/17/23 02:37) Monitor-Rhythm Ecg Trace Only (03/17/23 02:37) Acetaminophen (03/17/23 02:37) Alcohol (03/17/23 02:37) Amylase (03/17/23 02:37) Bnp Josephine (03/17/23 02:37) Cbc And Automated Diff (03/17/23 02:37) Comprehensive Metabolic Panel (03/17/23 02:37) Creatine Kinase (03/17/23 02:37) Creatine Kinase Mb (03/17/23 02:37) Hs C Reactive Protein (03/17/23 02:37) Fibrin Degradation Products (03/17/23 02:37) Drug Screen Stat (Urine) (03/17/23 02:37) Hcg,Qualitative Serum (03/17/23 02:37) Lactic Acid Analyzer (03/17/23 02:37) Lipase (03/17/23 02:37) Magnesium (03/17/23 02:37) Protime With Inr (03/17/23 02:37) Partial Thromboplastin Time (03/17/23 02:37) Ua Culture If Indicated (03/17/23 02:37) Blood Culture (03/17/23 02:37) Erythrocyte Sedimentation Rate (03/17/23 02:37) Myoglobin Serum (03/17/23 02:37) Troponin I Josephine (03/17/23 02:37) Chest 1 View, Ap/Pa Only (03/17/23 02:37) Covid 19 Inhouse Test (03/17/23 02:37) Ed Iv/Invasive Line Start (03/17/23 02:37) Lactated Ringers 1,000 Ml (Lactated Ring (03/17/23 02:45) Vancomycin Injection (Vancomycin Injecti (03/17/23 02:45) Urine Culture (03/17/23 02:37) Vital Signs Adult Sepsis Patie Q15M (03/17/23 02:37) Remove Rings In Anticipation O (03/17/23 02:37) Lidocaine 2% (Urojet) (Lidocaine 2% (Uro (03/17/23 02:45) Influenza A And B By Pcr (03/17/23 02:37) Metronidazole 500mg/100ml Ivpb (Metronid (03/17/23 02:45) Cefepime Injection (Cefepime Injection) (03/17/23 02:45) Ketorolac Injection (Ketorolac Injection (03/17/23 03:45) Ed Iv/Invasive Line Start (03/17/23 04:09) Lactated Ringers 1,000 Ml (Lactated Ring (03/17/23 04:15) Neisseria Gonorrhea Swab (03/17/23 05:22) Chlam Dna Probe (03/17/23 05:22) Genital Culture (03/17/23 05:22) Wet Prep (03/17/23 05:22) Ed Admission (Communication) (03/17/23 05:25) Hepatitis Panel Acute (03/17/23 05:26) Hiv 1&2 Antibody (03/17/23 05:26) Syphilis Antibody Screen (03/17/23 05:55) Medications Given in ED Current Medications Medications Dose Ordered Sig/Vicky Route Start Time Stop Time Status Last Admin Dose Admin Cefepime HCl 1000 mg/Sodium Chloride 50 ml @ 100 mls/hr ONCE ONCE IV 03/17/23 02:45 03/17/23 03:14 DC 03/17/23 04:45 100 MLS/HR Ketorolac Tromethamine 30 mg ONCE ONCE IVP 03/17/23 03:45 03/17/23 03:46 DC 03/17/23 04:01 30 MG Lactated Ringer's 1,000 ml @ 0 mls/hr Q0M ONCE IV 03/17/23 02:45 03/17/23 02:46 DC 03/17/23 04:02 1,000 MLS/HR Lactated Ringer's 1,000 ml @ 0 mls/hr Q0M ONCE IV 03/17/23 04:15 03/17/23 04:16 DC 03/17/23 04:50 999 MLS/HR Lidocaine HCl 10 ml ONCE ONCE TOP 03/17/23 02:45 03/17/23 02:46 DC 03/17/23 04:01 10 ML Metronidazole 100 ml @ 100 mls/hr ONCE ONCE IV 03/17/23 02:45 03/17/23 03:44 DC 03/17/23 04:51 100 MLS/HR Vital Signs/I&O 03/17/23 03/17/23 03/17/23 03:32 03:48 04:21 Temp 36.7 36.7 Pulse 105 105 Resp 18 18 B/P (MAP) 104/66 (79) 104/66 (79) Pulse Ox 100 100 100 O2 Delivery Room Air Room Air Room Air Capillary Refill : Progress Note : Progress Note VITALS ON ARRIVAL: TEMP 36.7=98.0, HR 105, RR 18, BP 104/66, O2 SAT 100% ON ROOM AIR SEPSIS PROTOCOL INITIATED GIVEN: -IV FLUIDS -ANTIBIOTICS -TORADOL LABS: -CBC WITH WBC 17.6, HGB 10.3, PLT 249,000; 90% NEUTROPHILS 7% LYMPHS -CMP NORMAL WITH K 3.2 -MG NORMAL -AMYLASE/LIPASE NORMAL -UA WITH MODERATE BACTERIA, 2-5 WBC, NO LEUKOCYTES -UDS + METH/AMPHETAMINES, THC. -HCG NEGATIVE -LACTIC ACID 0.87 -SED RATE 64 -CRP 37.15 -PT/PTT/INR 19.7/42/1.6 -D-DIMER 3.71 -TROPONIN NEGATIVE -BNP NORMAL -ETOH-NEGATIVE -ACETAMINOPHEN NEGATIVE -COVID/FLU NEGATIVE -WET PREP--LARGE WBC'S, FEW CLUE CELLS, NO TRICHOMONAS, NO YEAST EKG UNREMARKABLE CXR UNREMARKABLE, PENDING RADIOLOGIST REVIEW REVIEWED ER RECORD FROM 03/16/23, GENITAL CULTURES ARE PENDING AT THIS TIME REVIEWED PRIOR VISITS--PT HAS HAD A MULTITUDE OF [facility] VISITS, FOR VARIOUS COMPLAINTS NO DETERIORATION IN PT'S CONDITION DURING ER STAY VITALS STABLE, AFEBRILE DISCUSSED TEST RESULTS, AND PT IS AGREEABLE TO ADMIT. ECG Initial ECG Impression Date: Mar 17, 2023 Initial ECG Impression Time: 03:01 Initial ECG Rate: 96 Initial ECG Rhythm: Normal Sinus Initial ECG Intervals: Normal Initial ECG Impression: Nonspecific Changes Initial ECG Comparisson: Unchanged Comment INTERPRETED BY ME Diagnostic Imaging Comments CXR--NO ACUTE PROCESS, PENDING RADIOLOGIST REVIEW Reviewed: Reviewed by Me Departure Communication (Admissions) 0506--SPOKE WITH DR. LEON, [facility]. SHE ADVISES TO ADMIT TO HOSPITALIST AND SHE WILL SEE PT IN CONSULT. SHE ADVISES CEFEPIME, CLINDAMYCIN AND VANCOMYCIN FOR QUESTIONABLE TOXIC SHOCK SYNDROME 0511--SPOKE WITH DR. ZELAYA, HOSPITALIST FOR [facility]. ACCEPTS PT FOR ADMIT. SHE WILL DO ADMIT ORDERS Impression Primary Impression: Sepsis Additional Impressions: Combined abdominal and pelvic pain Methamphetamine use Marijuana use Urinary tract infection POSSIBLE TOXIC SHOCK SYNDROME PID (acute pelvic inflammatory disease) Disposition: ADMITTED INPATIENT Condition: Stable Admissions Decision to Admit Reason: Admit from ER (General) Decision to Admit/Date: Mar 17, 2023 Time/Decision to Admit Time: 05:10 Departure-Patient Inst. Referrals: [facility] (PCP/Family) Primary Care Physician DANIA GU DO Mar 17, 2023 02:52
[2023-03-17 03:36] LABS: BASOPHILS % (AUTO) 0 % (0-10); EOSINOPHILS # (AUTO) 0.1 10^3/uL (0.0-0.3); EOSINOPHILS % (AUTO) 0 % (0-10); HEMATOCRIT 32 % (35-52); HEMOGLOBIN 10.3 g/dL (11.5-16.0); LYMPHOCYTES # (AUTO) 1.2 10^3/uL (1.0-4.0); LYMPHOCYTES % (AUTO) 7 % (12-44); MEAN CORPUSCULAR HEMOGLOBIN 29 pg (25-34); MEAN CORPUSCULAR HGB CONC 32 g/dL (32-36); MEAN CORPUSCULAR VOLUME 91 fL (80-99); MEAN PLATELET VOLUME 9.4 fL (9.0-12.2); MONOCYTES # (AUTO) 0.4 10^3/uL (0.0-1.0); MONOCYTES % (AUTO) 2 % (0-12); NEUTROPHILS # (AUTO) 15.8 10^3/uL (1.8-7.8); NEUTROPHILS % (AUTO) 90 % (42-75); PLATELET COUNT 249 10^3/uL (130-400); WHITE BLOOD COUNT 17.6 10^3/uL (4.3-11.0)
[2023-03-17 03:43] LABS: CHLORIDE 105 MMOL/L (98-107); POTASSIUM 3.2 MMOL/L (3.6-5.0); SODIUM 137 MMOL/L (135-145)
[2023-03-17 03:44] LABS: ALBUMIN 3.4 GM/DL (3.2-4.5)
[2023-03-17 03:45] LABS: AMYLASE 33 U/L (25-125); CALCIUM 9.1 MG/DL (8.5-10.1)
[2023-03-17] MEDS ORDERED: KETOROLAC INJ 30 MG/ML VIAL IVP ONE (03:45)
[2023-03-17 03:46] LABS: GLUCOSE 99 MG/DL (70-105); TOTAL PROTEIN 6.4 GM/DL (6.4-8.2)
[2023-03-17 03:47] LABS: CARBON DIOXIDE 22 MMOL/L (21-32)
[2023-03-17 03:48] LABS: BILIRUBIN,TOTAL 0.9 MG/DL (0.1-1.0)
[2023-03-17 03:50] LABS: ALKALINE PHOSPHATASE 61 U/L (40-136); CREATININE SERUM 0.72 MG/DL (0.60-1.30); GFR ESTIMATED 117
[2023-03-17 03:51] LABS: BUN/CREATININE RATIO 15
[2023-03-17 03:53] LABS: ALANINE AMINOTRANSFERASE 6 U/L (0-55); MAGNESIUM 1.9 MG/DL (1.6-2.4)
[2023-03-17 03:54] LABS: CREATINE KINASE 19 U/L (29-168); LIPASE 14 U/L (8-78)
[2023-03-17 03:57] LABS: INR 1.6 (0.8-1.4); PROTHROMBIN TIME PATIENT 19.7 SEC (12.2-14.7)
[2023-03-17 04:00] LABS: FIBRIN DEGRADATION PRODUCTS 3.71 UG/ML (0.00-0.49)
[2023-03-17 04:01] LABS: CREATINE KINASE MB 0.4 NG/ML (<6.6)
[2023-03-17 04:02] LABS: ERYTHROCYTE SEDIMENTATION RATE 64 MM/HR (0-20)
[2023-03-17 04:03] LABS: ACETAMINOPHEN < 10 UG/ML (10-30)
[2023-03-17 04:38] LABS: AMPHETAMINE SCREEN, URINE POSITIVE (NEGATIVE); BARBITURATE SCREEN URINE NEGATIVE (NEGATIVE); CANNABINOID SCREEN, URINE POSITIVE (NEGATIVE); COCAINE SCREEN URINE NEGATIVE (NEGATIVE); METHADONE STAT NEGATIVE (NEGATIVE); OPIATE SCREEN URINE NEGATIVE (NEGATIVE); OXYCODONE STAT NEGATIVE (NEGATIVE); TRICYCLIC ANTIDEPRESSANTS SCRE NEGATIVE (NEGATIVE)
[2023-03-17] MEDS: metroNIDAZOLE 500MG/100ML IVPB 100 ML IV ONE (04:51)
[2023-03-17 04:53] LABS: BACTERIA,URINE MODERATE /HPF; BILIRUBIN,URINE NEGATIVE (NEGATIVE); CLARITY,URINE CLEAR; COLOR,URINE YELLOW; GLUCOSE, URINE (UA) NEGATIVE (NEGATIVE); KETONES,URINE TRACE (NEGATIVE); LEUKOCYTE ESTERASE ,URINE NEGATIVE (NEGATIVE); NITRITE,URINE NEGATIVE (NEGATIVE); PH,URINE 5.5 (5-9); PROTEIN,URINE 1+ (NEGATIVE); SQUAMOUS EPITHELIAL CELL,UR 0-2 /HPF
[2023-03-17 04:54] LABS: AMORPHOUS SEDIMENT,UR FEW AMOR URATES /LPF
[2023-03-17] MEDS ORDERED: LORazepam 0.5 MG TABLET PO PRN (06:15)
[2023-03-17] MEDS ORDERED: CALCIUM CARBONATE 500 MG CHEW TABLET PO PRN (06:15)
[2023-03-17] MEDS ORDERED: BISACODYL 10 MG SUPPOSITORY PR PRN (06:15)
[2023-03-17] MEDS ORDERED: NS IV 500 ML 500 ML IV PRN (06:15)
[2023-03-17] MEDS ORDERED: ANTACID SUSPENSION 30 ML UDC PO PRN (06:15)
[2023-03-17] MEDS ORDERED: ONDANSETRON INJECTION 4 MG/2 ML (SDV) IV PRN (06:15)
[2023-03-17] MEDS ORDERED: MELATONIN 3 MG TABLET PO PRN (06:15)
[2023-03-17] MEDS ORDERED: diphenhydrAMINE INJ 50 MG/ML VIAL IVP PRN (06:15)
[2023-03-17] MEDS ORDERED: LACTULOSE SYRUP 10GM/15ML 30ML UDC PO PRN (06:15)
[2023-03-17] MEDS ORDERED: ACETAMINOPHEN 325 MG TABLET PO PRN (06:15)
[2023-03-17] MEDS ORDERED: ONDANSETRON 4 MG ORAL DISSOLVE TABLET PO PRN (06:15)
[2023-03-17] MEDS ORDERED: diphenhydrAMINE 25 MG TABLET PO PRN (06:15)
[2023-03-17] MEDS ORDERED: MILK OF MAGNESIA 400 MG/5 ML 30 ML UDC PO PRN (06:15)
[2023-03-17] MEDS ORDERED: VANCOMYCIN INJECTION 0.1 MG in NS (IVPB) 250 ML 250 ML IV SCH (06:15)
[2023-03-17] MEDS ORDERED: DexMEDEtomidine 1,000mcg/250ml 250 ML IV SCH (06:15)
[2023-03-17] MEDS: NOREPINEPHRINE 8 MG/250 ML 250 ML IV SCH (06:17)
[2023-03-17] MEDS: VANCOMYCIN INJECTION 750 MG in NS (IVPB) 250 ML 250 ML IV SCH ×2 (06:22→09:15)
[2023-03-17 06:35] VITALS: BP 101/60
[2023-03-17] MEDS ORDERED: RT-ALBUTEROL SULF 2.5 MG/3 ML PRE-MIX VIAL INH PRN (06:45)
[2023-03-17] MEDS: ENOXAPARIN 40 MG/0.4 ML SYRINGE SC SCH (06:49)
[2023-03-17] MEDS ORDERED: POTASSIUM CHLORIDE 20 MEQ TABLET PO ONE ×2 (07:00→09:00)
--- NOTE | 2023-03-17 07:31 | Tele-ICU Progress Note ---
Subjective Date Seen by a Provider: Mar 17, 2023 Subjective/Events-last exam This virtual visit was conducted using real time audio/video. Thank you for asking us to see this patient for sepsis, possible toxic shock syndrome, + urine tox. screen. Recent events: recd 1 L IVF in ER. PE: VSS. O2 sat 100% on RA HEENT: No obvious masses, adenopathy or JVD. Chest: clear to auscultation. CV: RRR S1 S2 No murmur or added sounds. Abd: tender. Bowel sounds Y. : Unremarkable. Diehl N. INHALATION THERAPY AIDE/psychiatric: Grossly intact. No obvious focal findings. Extremities: No edema. Capillary refill < 3 seconds. Skin: unremarkable. Results: Elevated WCC 17.6. Decreased K 3.2, Hb 10.3. CXR: clear. Available chart/ vitals / labs / images reviewed. Video assessment done using teleICU camera, rest of exam as per RN. A/P: Critical Care: critically ill patient. Cont.abx, PRN precedex, Jose Maria. Replace K. Discussed with KEELY Post. Asked RN to reach out to eICU if any questions or concerns later. Time spent with patient/coordination of care with other health professionals (mins): 28 Sepsis Event Evaluation Height, Weight, BMI Height: 5'2.00" Weight: 182lbs. 8.0oz. 82.712575ba; 21.97 BMI Method:Stated Focused Exam Lactate Level 03/17/23 03:20: Lactic Acid Level 0.87 Time of Focused Exam: 05:15 Exam Exam Patient acknowledged, consented, and participated in this virtual visit which was conducted using real time audio/video Vital Signs Date Time Temp Pulse Resp B/P (MAP) Pulse Ox O2 Delivery O2 Flow Rate FiO2 03/17/23 06:46 100 Room Air 03/17/23 06:35 36.7 100 100 03/17/23 06:03 100 03/17/23 06:00 36.1 107 21 107/61 (76) 100 Room Air 03/17/23 05:55 36.7 96 14 101/60 100 Room Air 03/17/23 04:21 100 Room Air 03/17/23 03:48 36.7 105 18 104/66 (79) 100 Room Air 03/17/23 03:32 36.7 105 18 104/66 (79) 100 Room Air I & O 03/17/23 07:00 Intake Total 2150 ml Balance 2150 ml Height & Weight Height: 5'2.00" Weight: 182lbs. 8.0oz. 82.185972op; 21.97 BMI Method:Stated General Appearance: No Apparent Distress, WD/WN, Other (VERY DRAMATIC ON ARRIVAL, SLUMPED IN WHEELCHAIR ON ARRIVAL, THEN ONCE SHE IS ON ER CART, SHE APPEARS NORMAL. ) HEENT: PERRL/EOMI, Normal ENT Inspection Neck: Normal Inspection Respiratory: Normal Breath Sounds, No Accessory Muscle Use, No Respiratory Distress Cardiovascular: No Edema, No JVD, No Murmur, Tachycardia (HR AROUND 100-105) Capillary Refill: Less Than 3 Seconds Extremity: Normal Capillary Refill, Normal Inspection, Normal Range of Motion, Non Tender, No Calf Tenderness, No Pedal Edema Neurologic/Psychiatric: Alert, Oriented x3, No Motor/Sensory Deficits, licensed physical therapy assistant II- XII Norm as Tested Skin: Warm/Dry, Pallor, Tattoos/Piercings (EXTENSIVE TATTOOS) Results Lab Laboratory Tests 03/17/23 03:20 Assessment/Plan Assessment/Plan See free text. Critical Care: Critically Ill Patient GUME BARILLAS MD Mar 17, 2023 07:30
[2023-03-17] MEDS: NS IV ONE ×2 (07:36→10:38)
[2023-03-17] MEDS: VANCOMYCIN IV ONE ×2 (07:36→10:38)
--- NOTE | 2023-03-17 08:30 | Diagnostic Imaging Report ---
Indication: Cough, fever. Findings: Lungs clear. No failure, effusion or pneumothorax. Impression: Negative Dictated by: Dictated on workstation # [id number]
--- NOTE | 2023-03-17 08:47 | Consultation ---
History of Present Illness History of Present Illness Patient Consulted On(gaby/time) 03/17/23 08:42 Time Seen by Provider: 08:40 History of Present Illness 28 year old presented last night to ER with pelvic and abdominal pain since Monday. She had been seen in [facility] with similar complaints. She had a complete sepsis evaluation but left AMA. She presented here as she has continued to have pelvic pain. She said that her pain started Monday after she left a tampon in for 13 hours. She also had some fever/chills. She did have nausea/vomiting. She has had yellow discharge per ER report. Allergies and Home Medications Allergies Coded Allergies: Penicillins (Verified Allergy, Unknown, RASH, 06/08/18) amoxicillin (Verified Allergy, Unknown, 05/09/17) oxycodone (Verified Allergy, Unknown, NAUSEA, 06/08/18) Patient Home Medication List Home Medication List Reviewed: Yes Clindamycin HCl (Clindamycin HCl) 150 Mg Capsule, 450 MG PO TID Prescribed by: CLARITZA GIORDANO on 02/23/19 1422 Clindamycin HCl (Clindamycin HCl) 150 Mg Capsule, 450 MG PO Q6H Prescribed by: NASRIN ROMERO on 03/04/19 0053 Cyclobenzaprine HCl (Cyclobenzaprine HCl) 10 Mg Tablet, 10 MG PO Q8H PRN for SPASMS Prescribed by: KATRIN CONTRERAS on 07/02/20 0716 Docusate Sodium (Docusate Sodium) 100 Mg Capsule, 100 MG PO BID Prescribed by: MARY GLASER on 06/09/18 1005 Ibuprofen (Ibuprofen) 800 Mg Tablet, 800 MG PO q8 PRN for BACK PAIN Prescribed by: MARY GLASER on 06/09/18 1005 Ibuprofen (Ibuprofen) 800 Mg Tablet, 800 MG PO Q8H PRN for PAIN Prescribed by: CLARITZA GIORDANO on 02/23/19 1422 Ibuprofen (Ibuprofen) 800 Mg Tablet, 800 MG PO Q8H PRN for PAIN Prescribed by: KATRIN CONTRERAS on 07/02/20 0716 Oxycodone HCl/Acetaminophen (Percocet 5-325 mg Tablet) 1 Each Tablet, 1 EACH PO Q6H PRN for PAIN-MODERATE Prescribed by: MARY GLASER on 06/08/18 0827 Oxycodone HCl/Acetaminophen (Percocet 5-325 mg Tablet) 1 Each Tablet, 1 TAB PO Q6H PRN for PAIN-MODERATE Prescribed by: MARY GLASER on 06/09/18 1005 Pnv No.118/Iron Fumarate/FA ( 19 Chewable Tablet) 1 Each Tab.chew, 2 EACH PO DAILY, (Reported) Entered as Reported by: MELLO HAIR on 06/04/18 1318 Sulfamethoxazole/Trimethoprim (Bactrim Ds Tablet) 1 Each Tablet, 1 EACH PO BID Prescribed by: NASRIN ROMERO on 08/24/19 1142 Sulfamethoxazole/Trimethoprim (Bactrim Ds Tablet) 1 Each Tablet, 1 EACH PO BID Prescribed by: JULIOCESAR ALCALA on 10/30/20 1935 [lortab elixir] , 10 ML PO TID Prescribed by: CLARITZA GIORDANO on 02/23/19 142 [viscous lidocaine] , BC TIDAC PRN for throat pain Prescribed by: CLARITZA GIORDANO on 02/23/19 142 Past Tghrywb-Alqgoo-Latzdz Hx Patient Social History Tobacco Use?: Yes Tobacco type used: Cigarettes Smoking Status: Current Everyday Smoker Use of E-Cig and/or Vaping dev: Yes E-Cig or Vaping type used: Nicotine Use of E-Cig and/or Vaping Marvin: Current Everyday User Substance use?: Yes Substance type: Amphetamines, Methamphetamine, Marijuana Substance frequency: Daily Alcohol Use?: No Pt feels they are or have been: No Immunizations Up To Date Tetanus Booster (TDap): Unknown Influenza Vaccine Up-to-Date: No; Not Current First/Initial COVID19 Vaccinat: N/A Seasonal Allergies Seasonal Allergies: No Past Medical History Surgeries: Yes (EAR CYST REMOVAL, Bartholean cyst removal) Gallbladder Respiratory: Yes Asthma Currently Using CPAP: No Currently Using BIPAP: No Cardiac: No Neurological: No : No Genitourinary: No Gastrointestinal: No Musculoskeletal: Yes Scoliosis Endocrine: No HEENT: No Cancer: No Psychosocial: Yes (suicidal thoughts) Integumentary: No Blood Disorders: No Family Medical History Blood clots 19 MOTHER Scoliosis G8 BROTHER No Pertinent Family Hx SOCIAL HISTORY: -SMOKES 1 PPD, AND VAPES NICOTINE AND THC -DRUGS--METHAMPHETAMINES, THC--DENIES IV USE, STATES SHE SMOKES THEM -ETOH --DENIES USE Review of Systems-General Respiratory: no symptoms reported Cardiovascular: no symptoms reported Gastrointestinal: LUQ, RLQ, abdominal pain, diarrhea, nausea, vomiting Genitourinary: discharge Physical Exam-General Problems Physical Exam Vital Signs Vital Signs - First Documented 03/17/23 03:32 Temp 36.7 Pulse 105 Resp 18 B/P (MAP) 104/66 (79) Pulse Ox 100 O2 Delivery Room Air Capillary Refill : Less Than 3 Seconds General Appearance: no apparent distress Respiratory: no respiratory distress Gastrointestinal: non tender, soft Extremities: no calf tenderness Assessment/Plan Assessment/Plan Admission Diagnosis/Plan Pelvic Pain Likely PID - Continue antibiotics US to evaluate for pelvic abscess AMBER GUTIERREZ DO Mar 17, 2023 08:47
[2023-03-17] MEDS: DOCUSATE SODIUM 100 MG CAPSULE PO SCH ×2 (09:22→20:09)
[2023-03-17] MEDS: SENNOSIDES 8.6 MG TABLET PO SCH ×2 (09:22→20:09)
[2023-03-17] MEDS: IBUPROFEN 200 MG TABLET PO PRN ×2 (09:54→20:16)
[2023-03-17] MEDS: HYDROmorphone INJECTION 2 MG/ML VIAL IVP PRN ×2 (09:54→18:48)
[2023-03-17] MEDS ORDERED: NS IV ONE (10:15)
[2023-03-17] MEDS ORDERED: VANCOMYCIN IV ONE (10:15)
[2023-03-17] MEDS ORDERED: IBUP-2473 PO (11:13)
[2023-03-17] MEDS ORDERED: ACET-2267 PO (11:13)
--- NOTE | 2023-03-17 12:01 | History & Physical-Hospitalist ---
DAVON MARTINEZ MD, RESIDENT 03/17/23 1201: History of Present Illness HPI/Chief Complaint CC: Abdominal pain Patient states she has been having pelvic and abdominal pain since Monday. Noted that she was also having nausea and vomiting with this. She denies any fevers or other symptoms at that time. She was concern for toxic shock syndrome as she had kept a tampon in for 12 hours prior to changing it and thus had presented to [place] for evaluation. Sepsis evaluation was completed and patient was noted to be septic with an elevated white count, fever and tachycardia. Patient was recommended to be admitted however she left AMA as she stated she needed to take care of some things. She presented to the ED last night for ultimate admission. Patient states that she is feeling a little bit better this morning but notes that she has some room for improvement. Is still having some nausea at this time. She otherwise has no concerns today. Source: patient Exam Limitations: no limitations Date Seen 03/17/23 Time Seen by a Provider: 07:55 Attending Physician [place] PCP Admitting Physician: Sandra Maxwell DO Attending Physician: Sandra Maxwell DO Referring Physician Date of Admission Mar 17, 2023 at 05:59 Home Medications & Allergies Home Medications Reviewed patient Home Medication Reconciliation performed by pharmacy medication reconciliations installation and repair technician and/or nursing. Patients Allergies have been reviewed. Allergies Allergies Coded Allergies Penicillins (Verified Allergy, Unknown, RASH, 06/08/18) amoxicillin (Verified Allergy, Unknown, 05/09/17) oxycodone (Verified Allergy, Unknown, NAUSEA, 06/08/18) Past Oidnxpa-Hhqjop-Wndwnv Hx Patient Social History Tobacco Use?: Yes Tobacco type used: Cigarettes Smoking Status: Current Everyday Smoker Use of E-Cig and/or Vaping dev: Yes E-Cig or Vaping type used: Nicotine Use of E-Cig and/or Vaping Marvin: Current Everyday User Substance use?: Yes Substance type: Amphetamines, Methamphetamine, Marijuana Substance frequency: Daily Alcohol Use?: No Pt feels they are or have been: No Immunizations Up To Date First/Initial COVID19 Vaccinat: N/A Tetanus Booster (TDap): Unknown Seasonal Allergies Seasonal Allergies: No Current Status status: No Communicates: Verbally Primary Language: Russian Preferred Spoken Language: Russian Is interpretation needed?: No Sensory deficits: Vision impairment Implanted or Applied Medical D: None Past Medical History Surgeries: Gallbladder Asthma Currently Using CPAP: No Currently Using BIPAP: No Scoliosis Blood Disorders: No Family Medical History Blood clots 19 MOTHER Scoliosis G8 BROTHER No Pertinent Family Hx SOCIAL HISTORY: -SMOKES 1 PPD, AND VAPES NICOTINE AND THC -DRUGS--METHAMPHETAMINES, THC--DENIES IV USE, STATES SHE SMOKES THEM -ETOH --DENIES USE Review of Systems Constitutional: fever EENTM: No no symptoms reported Respiratory: No cough, No dyspnea on exertion, No short of breath Cardiovascular: No chest pain, No edema, No palpitations Gastrointestinal: abdominal pain; No constipation, No diarrhea; nausea; No vomiting Genitourinary: dysuria Skin: No no symptoms reported Psychiatric/Neurological: Denies No Symptoms Reported Physical Exam Physical Exam Vital Signs Vital Signs - First Documented 03/17/23 03:32 Temp 36.7 Pulse 105 Resp 18 B/P (MAP) 104/66 (79) Pulse Ox 100 O2 Delivery Room Air Capillary Refill : Less Than 3 Seconds Height, Weight, BMI Height: 5'2.00" Weight: 182lbs. 8.0oz. 82.053360at; 21.97 BMI Method:Stated General Appearance: No Apparent Distress HEENT: PERRL/EOMI Neck: Full Range of Motion, Non Tender, Supple Respiratory: Chest Non Tender, Lungs Clear, Normal Breath Sounds, No Accessory Muscle Use, No Respiratory Distress Cardiovascular: Regular Rate, Rhythm, No Edema, Normal Peripheral Pulses Gastrointestinal: Normal Bowel Sounds, Non Tender, Soft Neurologic/Psychiatric: Alert, Oriented x3 Skin: Normal Color, Warm/Dry Results Results/Procedures Labs Laboratory Tests 03/17/23 03:20 Patient resulted labs reviewed. Imaging: Reviewed Imaging Films, Reviewed Imaging Report Imaging Abdominal CT (03/16/2023): IMPRESSION: There are some dilated and fluid-filled small bowel loops demonstrating some mucosal enhancement consistent with nonspecific enteritis. No bowel obstruction or abscess formation is identified. No other significant abnormality is detected. Chest x-ray (03/17/2023): mpression: Negative Assessment/Plan Admission Diagnosis Sepsis Admission Status: Observation Diagnosis/Problems Diagnosis/Problems (1) Sepsis Status: Acute Assessment & Plan: Patient meeting sepsis criteria on presentation at [place] with fever, leukocytosis to 34, tachycardia. Continues to meet sepsis criteria here in [place]. Lactate normal at this time. Chest x-ray was negative, UA not concerning for UTI. Source is thought to be secondary to toxic shock syndrome due to prolonged insertion of tampon. Patient also noted to have enteritis on CT abdomen which may be contributing to patient's presentation. Plan: Continue IV antibiotics with clindamycin, cefepime and vancomycin to cover for toxic shock syndrome Follow-up Maxillofacial Prosthetics Dentist labs most of which at this time are negative, Chlamydia gonorrhea is pending Gynecology consulted, appreciate recommendations Follow-up transvaginal ultrasound Follow-up blood cultures Follow-up genital culture Qualifiers: Sepsis type: sepsis due to unspecified organism Sepsis acute organ dysfunction status: without acute organ dysfunction Qualified Codes: A41.9 - Sepsis, unspecified organism (2) Homelessness Status: Chronic Assessment & Plan: Social work consulted, appreciate recommendations (3) Enteritis Status: Acute Assessment & Plan: Could be secondary to pelvic infection. However could also be contributing to patient's septic picture. Continue plan as per above. (4) Methamphetamine use Status: Chronic Assessment & Plan: Positive on UDS. Encourage abstinence. (5) Marijuana use Status: Chronic Assessment & Plan: Positive on UDS. SANDRA MAXWELL DO 03/17/232056: History of Present Illness HPI/Chief Complaint Chief complaint: Twice daily with toxic shock syndrome HPI: This is a 28-year-old female who lives in her car and is homeless who presented to the ER after leaving [facility] following a diagnosis of toxic shock syndrome with PID. IV antibiotics initiated and PSYCHIATRIC SOCIAL WORKER consult. Source: patient Exam Limitations: no limitations Past Kkwmbwg-Sczfod-Tjichv Hx Patient Social History Marrital Status: single Employed/Student: unemployed Smoking Status: Current Everyday Smoker Family Medical History Blood clots 19 MOTHER Scoliosis G8 BROTHER Review of Systems Constitutional: see HPI Physical Exam Physical Exam General Appearance: No Apparent Distress, Chronically ill Respiratory: Lungs Clear, Normal Breath Sounds Cardiovascular: Regular Rate, Rhythm Neurologic/Psychiatric: Alert, Oriented x3 Assessment/Plan Admission Diagnosis Assessment: Sepsis PID Toxic shock syndrome Homeless Meth use Plan: Supportive care Monitor closely Admission Status: Observation DAVON MARTINEZ MD, RESIDENT Mar 17, 2023 12:01 SANDRA MAXWELL DO Mar 17, 2023 20:57
--- NOTE | 2023-03-17 12:29 | Diagnostic Imaging Report ---
PROCEDURE: Pelvic comp/transvaginal sonogram. TECHNIQUE: Complete transabdominal and transvaginal pelvic ultrasound was performed. In addition, limited pelvic Doppler was performed. INDICATION: Pelvic pain. Uterus is retroverted measuring 7.4 x 4.4 x 5.8 cm. Endometrium is 3 mm in thickness. No myometrial mass is detected. Right ovary measures 3.5 x 2.6 x 2.4 cm and left ovary measures 3.1 x 1.6 x 1.4 cm. Both ovaries contain small follicles. There is blood flow to both ovaries. No adnexal mass or free pelvic fluid is detected. IMPRESSION: Unremarkable transabdominal and transvaginal pelvic ultrasound with limited pelvic Doppler. Dictated by: Dictated on workstation # [id number]
[2023-03-17 13:18] LABS: HEPATITIS C ANTIBODY C Non-Reactive (Non-Reactive)
[2023-03-17] MEDS: CEFEPIME INJECTION 1,000 MG in NS (IVPB) 50 ML 50 ML IV SCH ×2 (14:23→18:02)
[2023-03-17] MEDS: CLINDAMYCIN 600 MG/50 ML IVPB 50 ML IV SCH ×2 (15:37→22:05)
[2023-03-17 17:25] VITALS: BP 112/66
[2023-03-17] MEDS: VANCOMYCIN 750 MG/NS 250 ML IVPB IV SCH ×2 (18:26)
[2023-03-17 19:19] VITALS: BP 116/67
[2023-03-18] MEDS: CEFEPIME INJECTION 1,000 MG in NS (IVPB) 50 ML 50 ML IV SCH ×2 (00:23→05:05)
[2023-03-18 00:24] VITALS: BP 108/62
[2023-03-18] MEDS: NOREPINEPHRINE 8 MG/250 ML 250 ML IV SCH (03:26)
[2023-03-18 04:50] VITALS: BP 99/65
[2023-03-18] MEDS: CLINDAMYCIN 600 MG/50 ML IVPB 50 ML IV SCH (05:05)
[2023-03-18] MEDS: ENOXAPARIN 40 MG/0.4 ML SYRINGE SC SCH (05:36)
[2023-03-18] MEDS: VANCOMYCIN 750 MG/NS 250 ML IVPB IV SCH ×2 (05:37)
[2023-03-18] MEDS ORDERED: MAGNESIUM 1 GM/100 ML IVPB 100 ML IV SCH (06:00)
[2023-03-18] MEDS ORDERED: POTASSIUM CL 10MEQ/50ML IVPB 50 ML IV SCH (06:00)
[2023-03-18] MEDS ORDERED: POTASSIUM CHLORIDE 20 MEQ TABLET PO SCH (06:00)
[2023-03-18 07:03] LABS: BASOPHILS % (AUTO) 0 % (0-10); EOSINOPHILS # (AUTO) 0.1 10^3/uL (0.0-0.3); EOSINOPHILS % (AUTO) 2 % (0-10); HEMATOCRIT 30 % (35-52); HEMOGLOBIN 9.7 g/dL (11.5-16.0); LYMPHOCYTES # (AUTO) 1.5 10^3/uL (1.0-4.0); LYMPHOCYTES % (AUTO) 22 % (12-44); MEAN CORPUSCULAR HEMOGLOBIN 29 pg (25-34); MEAN CORPUSCULAR HGB CONC 33 g/dL (32-36); MEAN CORPUSCULAR VOLUME 89 fL (80-99); MONOCYTES # (AUTO) 0.5 10^3/uL (0.0-1.0); MONOCYTES % (AUTO) 8 % (0-12); NEUTROPHILS # (AUTO) 4.9 10^3/uL (1.8-7.8); NEUTROPHILS % (AUTO) 69 % (42-75); PLATELET COUNT 217 10^3/uL (130-400); WHITE BLOOD COUNT 7.1 10^3/uL (4.3-11.0)
[2023-03-18 07:04] LABS: ALBUMIN 3.1 GM/DL (3.2-4.5)
[2023-03-18 07:05] LABS: POTASSIUM 3.5 MMOL/L (3.6-5.0)
[2023-03-18 07:06] LABS: CALCIUM 8.7 MG/DL (8.5-10.1)
[2023-03-18 07:07] LABS: TOTAL PROTEIN 6.1 GM/DL (6.4-8.2)
[2023-03-18 07:09] LABS: BILIRUBIN,TOTAL 0.5 MG/DL (0.1-1.0)
[2023-03-18 07:10] LABS: PHOSPHORUS 2.8 MG/DL (2.3-4.7)
[2023-03-18 07:11] LABS: CREATININE SERUM 0.58 MG/DL (0.60-1.30)
[2023-03-18 07:14] LABS: MAGNESIUM 1.7 MG/DL (1.6-2.4)
[2023-03-18] MEDS: SENNOSIDES 8.6 MG TABLET PO SCH (07:24)
[2023-03-18] MEDS: MAGNESIUM 1 GM/100 ML IVPB 100 ML IV SCH ×2 (07:24→07:25)
[2023-03-18] MEDS: DOCUSATE SODIUM 100 MG CAPSULE PO SCH (07:24)
[2023-03-18] MEDS ORDERED: POTASSIUM CHLORIDE 20 MEQ TABLET PO ONE (08:00)
[2023-03-18] MEDS ORDERED: DOXY100T2 PO (09:03)
[2023-03-18] MEDS ORDERED: METR-145 PO (09:03)
--- NOTE | 2023-03-18 09:11 | Discharge Summary ---
DAVON MARTINEZ MD, RESIDENT 03/18/23 0910: Discharge Summary Hospital Course Was the Problem List Reviewed?: Yes Problems/Dx: (1) Sepsis Status: Acute Assessment & Plan: Patient meeting sepsis criteria on presentation at [facility] with fever, leukocytosis to 34, tachycardia. Continues to meet sepsis criteria here in [place]. Lactate normal at this time. Chest x-ray was negative, UA not concerning for UTI. Patient likely has pelvic inflammatory disease due to positive gonorrhea testing. Patient also noted to have enteritis on CT abdomen which may be contributing to patient's presentation. Plan: Treated with IV antibiotics with clindamycin, cefepime and vancomycin to cover for toxic shock syndrome Gonorrhea testing was positive, rest of gynecology labs were negative Transvaginal ultrasound negative Wet prep negative, genital culture growing numerous WBCs Qualifiers: Qualified Codes: A41.9 - Sepsis, unspecified organism (2) PID (acute pelvic inflammatory disease) Status: Acute Assessment & Plan: See above. Patient left AMA and thus we will treat with doxycycline and metronidazole to complete a 14-day course for pelvic inflammatory disease secondary to gonorrhea. Patient does meet criteria for pelvic inflammatory disease given that she had numerous WBCs on her genital culture, grew gonorrhea, had a temperature on presentation. (3) Homelessness Status: Chronic Assessment & Plan: Provided resources (4) Enteritis Status: Acute Assessment & Plan: Could be secondary to pelvic infection. However could also be contributing to patient's septic picture. Continue plan as per above. (5) Methamphetamine use Status: Chronic Assessment & Plan: Positive on UDS. Encourage abstinence. (6) Marijuana use Status: Chronic Assessment & Plan: Positive on UDS. Hospital Course Date of Admission: Mar 17, 2023 at 05:59 Admission Diagnosis : Family Physician/Provider: El[facility] Date of Discharge: 03/18/23 Discharge Diagnosis: Pelvic inflammatory disease Hospital Course: Patient is a 28-year-old female with past medical history of homelessness, methamphetamine use, marijuana use who presented with pelvic and abdominal pain since Monday. She was having nausea and vomiting with this and was concern for toxic shock syndrome as she had A tampon in for more than 12 hours thus she presented initially to [facility] for evaluation. Patient was noted to be septic with leukocytosis, fever and tachycardia and was recommended for admission however patient decided to leave AMA. She represented to [place] ED where she was noted to be in sepsis and thus was admitted for further management. We had consulted gynecology who completed a transvaginal ultrasound which was negative. We started patient on IV Patient states she has been having pelvic and abdominal pain since Monday. Noted that she was also having nausea and vomiting with this. She denies any fevers or other symptoms at that time. She was concern for toxic shock syndrome as she had kept a tampon in for 12 hours prior to changing it and thus had presented to [facility] for evaluation. Sepsis evaluation was completed and patient was noted to be septic with an elevated white count, fever and tachycardia. Patient was recommended to be admitted however she left [place] as she stated she needed to take care of some things. She presented to the ED last night for ultimate admission. On admission, we started patient on IV clindamycin, cefepime and vancomycin for treatment of toxic shock syndrome. Gynecology was consulted who completed a transvaginal ultrasound which was negative. Gynecological labs were otherwise unremarkable however she did test positive for gonorrhea. Thus her presentation was thought to be secondary to PID. CT abdomen/pelvis done at [facility] was notable for enteritis as well which may also be contributing to patient's symptoms and may have occurred secondary to the pelvic inflammatory disease. On 03/18/2023, patient decided to leave [place]. We sent over a prescription for doxycycline and metronidazole to complete treatment of her pelvic inflammatory disease for total of 14-day course. Labs and Pending Lab Test: Laboratory Tests 03/18/23 06:28: White Blood Count 7.1, Red Blood Count 3.34L, Hemoglobin 9.7L, Hematocrit 30L, Mean Corpuscular Volume 89, Mean Corpuscular Hemoglobin 29, Mean Corpuscular Hemoglobin Concent 33, Red Cell Distribution Width 13.3, Platelet Count 217, Mean Platelet Volume 10.0, Immature Granulocyte % (Auto) 0, Neutrophils (%) (Auto) 69, Lymphocytes (%) (Auto) 22, Monocytes (%) (Auto) 8, Eosinophils (%) (Auto) 2, Basophils (%) (Auto) 0, Neutrophils # (Auto) 4.9, Lymphocytes # (Auto) 1.5, Monocytes # (Auto) 0.5, Eosinophils # (Auto) 0.1, Basophils # (Auto) 0.0, Immature Granulocyte # (Auto) 0.0, Percent Immature Platelet Fraction 2.6, Sodium Level 139, Potassium Level 3.5L, Chloride Level 109H, Carbon Dioxide Level 21, Anion Gap 9, Blood Urea Nitrogen 6L, Creatinine 0.58L, Estimat Glomerular Filtration Rate 126, BUN/Creatinine Ratio 10, Glucose Level 93, Calcium Level 8.7, Corrected Calcium 9.4, Phosphorus Level 2.8, Magnesium Level 1.7, Total Bilirubin 0.5, Aspartate Amino Transf (AST/SGOT) 12, Alanine Aminotransferase (ALT/SGPT) 9, Alkaline Phosphatase 56, Total Protein 6.1L, Albumin 3.1L Microbiology 03/17/23 MRSA Screen - Final, Complete MRSA not isolated 03/17/23 Genital Culture, Resulted Pending 03/17/23 Wet Prep - Final, Resulted Home Meds Active Metronidazole 500 Mg Tablet 500 Mg PO BID 13 Days Doxycycline Hyclate 100 Mg Tablet 100 Mg PO BID 13 Days Reported Ibuprofen 200 Mg Tablet 400-600 Mg PO Q8H PRN Tylenol Extra Strength (Acetaminophen) 500 Mg Tablet 500-1,000 Mg PO Q8H PRN Assessment/Pt Instructions Please see electronic discharge instructions given to patient. Discharge Instructions Discharge Diet: No Restrictions Activity as Tolerated: Yes Consultations Gynecology Discharge Physical Examination Vital Signs Vital Signs Date Time Temp Pulse Resp B/P (MAP) Pulse Ox O2 Delivery O2 Flow Rate FiO2 03/18/23 08:00 99 Room Air 03/18/23 04:50 36.6 86 18 99/65 (76) General Appearance: No Apparent Distress HEENT: Normal ENT Inspection Respiratory: Chest Non Tender, Lungs Clear, Normal Breath Sounds, No Accessory Muscle Use, No Respiratory Distress Cardiovascular: Regular Rate, Rhythm, No Edema, No Murmur Gastrointestinal: Normal Bowel Sounds, Non Tender, Soft Skin: Normal Color, Warm/Dry Neurologic/Psychiatric: Alert, Oriented x3 Allergies: Coded Allergies: Penicillins (Verified Allergy, Unknown, RASH, 06/08/18) amoxicillin (Verified Allergy, Unknown, 05/09/17) oxycodone (Verified Allergy, Unknown, NAUSEA, 06/08/18) Discharge Summary Date of Admission Mar 17, 2023 at 05:59 Date of Discharge Mar 18, 2023 at 08:15 Admission Diagnosis Assessment: Sepsis PID Toxic shock syndrome Homeless Meth use Plan: Supportive care Monitor closely Discharge Diagnosis (1) Sepsis Status: Acute Assessment & Plan: Patient meeting sepsis criteria on presentation at [facility] with fever, leukocytosis to 34, tachycardia. Continues to meet sepsis criteria here in [place]. Lactate normal at this time. Chest x-ray was nega tive, UA not concerning for UTI. Source is thought to be secondary to toxic shock syndrome due to prolonged insertion of tampon. Patient also noted to have enteritis on CT abdomen which may be contributing to patient's presentation. Plan: Continue IV antibiotics with clindamycin, cefepime and vancomycin to cover for toxic shock syndrome Follow-up Manager Surgical labs most of which at this time are negative, Chlamydia gonorrhea is pending Gynecology consulted, appreciate recommendations Follow-up transvaginal ultrasound Follow-up blood cultures Follow-up genital culture Qualifiers: Qualified Codes: A41.9 - Sepsis, unspecified organism (2) Homelessness Status: Chronic Assessment & Plan: Social work consulted, appreciate recommendations (3) Enteritis Status: Acute Assessment & Plan: Could be secondary to pelvic infection. However could also be contributing to patient's septic picture. Continue plan as per above. (4) Methamphetamine use Status: Chronic Assessment & Plan: Positive on UDS. Encourage abstinence. (5) Marijuana use Status: Chronic Assessment & Plan: Positive on UDS. EMIL ZELAYA DO 03/19/23 0536: Discharge Summary Hospital Course Was the Problem List Reviewed?: Yes Hospital Course I personally performed the mehta portions of the visit, discussed case with resident and concur with resident documentation of history, physical exam, assessment and treatment plan unless otherwise noted. Assessment/Pt Instructions Patient left AMA Discharge Planning: <30 minutes discharge planning Discharge Instructions Discharge Diet: No Restrictions Discharge Physical Examination General Appearance: No Apparent Distress, WD/WN Allergies: Coded Allergies: Penicillins (Verified Allergy, Unknown, RASH, 06/08/18) amoxicillin (Verified Allergy, Unknown, 05/09/17) oxycodone (Verified Allergy, Unknown, NAUSEA, 06/08/18) DAVON MARTINEZ MD, RESIDENT Mar 18, 2023 09:10 EMIL ZELAYA DO Mar 19, 2023 05:36
[2023-03-18] MEDS ORDERED: TROUGH ORDER-PHARMACY XX NR (17:30)
== END 2023-03-18 08:15 | disposition home or self-care (01) ==
LOC: EDUNIT# 02:24 → ER 02:26 → ICU 05:59 → 4TH 17:22
PROVIDERS: ADMIT Internal Medicine; ATTEND Internal Medicine
DX: A41.9 Sepsis, unspecified organism (principal); N73.9 Female pelvic inflammatory disease, unspecified; K52.9 Noninfective gastroenteritis and colitis, unspecified; N39.0 Urinary tract infection, site not specified; F19.90 Other psychoactive substance use, unspecified, uncomplicated; F12.90 Cannabis use, unspecified, uncomplicated; F17.210 Nicotine dependence, cigarettes, uncomplicated; Z59.00 Homelessness unspecified; Z90.49 Acquired absence of other specified parts of digestive tract
CPT/HCPCS: 71045; 76830; 76856; 80053 ×2; 80074; 80306; 81000; 82150; 82550; 82553; 83605; 83690; 83735 ×2; 83874; 83880; 84100; 84484; 84703; 85025 ×2; 85379; 85610; 85652; 85730; 86141; 86780; 87040; 87070; 87077; 87081; 87088; 87205; 87210; 87389; 87491; 87591; 87636; 93005; 93041; 94760; 96361; 96365; 96366; 96367; 96368; 96372; 96375 ×3; 96376 ×2; 99284; G0378 ×2; G0480 ×2; 36415; 80320; 80329